=== PATIENT | male | born 1960 | race Caucasian/White ===

== ENCOUNTER → 2017-04-13 | Outpatient (CLI) | payer OTHER | LOC: FIMAGING 12:33 | PROVIDERS: ATTEND Orthopaedic Surgery Orthopaedic Surgery of the Spine | DX: M51.16 Intervertebral disc disorders with radiculopathy, lumbar region (principal); M51.36 Other intervertebral disc degeneration, lumbar region; M47.896 Other spondylosis, lumbar region; M89.38 Hypertrophy of bone, other site ==

== ENCOUNTER 2017-04-18 09:30 | Inpatient (IN) | payer OTHER ==
--- NOTE | 2017-04-17 18:19 | GHP ---
[f rep st] PREOP HISTORY AND PHYSICAL DATE OF ADMISSION: 04/18/2017 HISTORY: This is a pleasant 56-year-old gentleman well known to my practice. He underwent an L4-5 microdiskectomy back in 1994 by another surgeon and he did well. He had been re-herniated in 2004 a nd I performed a revision left L4-L5 microdiskectomy and left L5-S1 foraminotomy. The patient did w ell up until recently. He was golfing about 1 month ago when he felt immediate pain in his lower ba ck and a popping sensation down his left lower extremity. He has noted severe pain in the left leg and weakness. 50% of his pain is referable to the left lower extremity, 50% is referable to low avery k pain. On a 1-10 scale, his pain is a 9. It occurs daily and constantly. The patient denies any loss of bowel or bladder control. SOCIAL HISTORY: Negative for tobacco. Positive for social use of alcohol. FAMILY HISTORY: Diabetes mellitus, cancer, lung disease and heart disease. PAST MEDICAL HISTORY: Hypertension, gastroesophageal reflux disease, and asthma. PAST SURGICAL HISTORY: Right elbow surgery, appendectomy, left total knee arthroplasty, and the afo rementioned previous L4-L5 microdiskectomies. ALLERGIES: To medications include Demerol and morphine, which cause tongue swelling and shortness o f breath. Penicillin, ampicillin, ibuprofen, IVP dye, all of the 'cyclines and 'mycins, per the pat ient. MEDICATIONS: Singulair, omeprazole and losartan. PHYSICAL EXAMINATION: GENERAL: The patient is alert and oriented x3. VITAL SIGNS: He is 5 feet 9 inches tall and weighs 230 pounds. CARDIAC: Regular rate and rhythm, without detectable murmur, r ub or gallop. LUNGS: Clear to auscultation. NEUROLOGIC: Gait is antalgic favoring the left lower extremity. Strength of bilateral lower extremities is 5/5 throughout, with the exception of the le ft EHL. Light touch is diminished in the left medial and lateral leg. Patellar and Achilles reflex es are absent bilaterally. Straight leg raising is positive on the left strongly and negative on th e right. He is tender to palpation in the left sciatic notch. Range of motion of the lumbar spine is significantly limited, especially in forward flexion. RADIOGRAPHIC STUDIES: MRI of the lumbar spine shows severe degenerative disk disease, L4-5 kyphosis and Modic changes of the vertebral endplates. There is a recurrent left L4-L5 disk herniation with lateral recess stenosis and facet arthropathy. L3-L4 shows some minimal degenerative changes. L5- S1 is well preserved. IMPRESSION: 1. Recurrent left L4-L5 disk herniation laterally x3. 2. Status post left L4-L5 microdiskectomy followed by a revision left L4-L5 microdiskectomy and lef t L5-S1 foraminotomy. 3. Severe degenerative disk disease at L4-L5. PLAN: The patient has had a Medrol Dosepak, Valium, anti-inflammatories and pain medication, and is in severe pain. On a 1-10 scale, he rates it a 9. He does have weakness in the left lower extremi ty and this is a third disk herniation at the same level and same side, which justifies a fusion wit h instrumentation. The patient was given all of his options. He has elected to undergo surgery due to significant pain . Potential risks, benefits, and possible complications have been thoroughly discussed, including, but not limited to, dural tear with CSF leak, meningitis, nerve root injury, partial or complete par alysis, infection, need for further surgery, DVT, PE, pneumonia, stroke, heart attack, hemorrhage, b lindness, and . He will be n.p.o. after midnight tonight. I anticipate approximately 2-3 hosp ital nights. /[id number]/MODL
[~2017-04-18 09:30] MED LIST: VANCOMYCIN 1.5 GM in D5W 250 ML IV ONE; VANCOMYCIN PHARMACY TO DOSE MISC ONE
[2017-04-20] MEDS ORDERED: VANCOMYCIN PHARMACY TO DOSE MISC ONE (06:00)
[2017-04-20] MEDS ORDERED: VANCOMYCIN 1.5 GM in D5W 250 ML IV ONE (06:00)
[2017-04-20] MEDS ORDERED: CITRATE DEXTROSE SOLN 500 ML BAG ONE (11:41)
[2017-04-20] MEDS ORDERED: THROMBIN (BOVINE) 20,000 UNIT VIAL TP ONE (11:41)
[2017-04-20] MEDS ORDERED: BACITRACIN 50,000 UNITS/10 ML SYR IRR ONE (11:41)
[2017-04-20] MEDS ORDERED: BUPIVACAINE 0.25% 30 ML SDV ONE (11:41)
[2017-04-20] MEDS ORDERED: fentaNYL 100 MCG/2 ML INJ ONE ×3 (13:12→18:28)
[2017-04-20] MEDS ORDERED: HYDROmorphONE/DILAUDID 2 MG/ML INJ ONE ×2 (13:13→17:50)
[2017-04-20] MEDS ORDERED: PROPOFOL/EMULSION 500 MG/50 ML BOTTLE IV ONE ×4 (13:13→16:39)
[2017-04-20] MEDS ORDERED: MIDAZOLAM 2 MG/2 ML VIAL ONE (13:18)
[2017-04-20] MEDS ORDERED: LR 500 ML IV PRN (14:44)
[2017-04-20] MEDS ORDERED: ALBUTEROL 3 ML DEYVIAL IH PRN (14:44)
[2017-04-20] MEDS ORDERED: METOCLOPRAMIDE 10 MG/2 ML VIAL IVP PRN (14:44)
[2017-04-20] MEDS ORDERED: fentaNYL 100 MCG/2 ML INJ IVP PRN (14:44)
[2017-04-20] MEDS ORDERED: PROMETHAZINE HCL 25 MG/ML INJ IVP PRN ×2 (14:44→18:24)
[2017-04-20] MEDS ORDERED: DEXAMETHASONE 4 MG/ML VIAL IVP PRN (14:44)
[2017-04-20] MEDS ORDERED: NALOXONE HCL 0.4 MG/ML INJ IVP PRN (14:44)
[2017-04-20] MEDS ORDERED: ONDANSETRON 4 MG/2 ML VIAL IVP PRN ×2 (14:44→18:24)
--- NOTE | 2017-04-20 14:49 | PDANEPAE ---
ANE History of Present Illness 56 year old male with back pain with extension into his Left leg. He has undergone two prior surgeries and continues to have pain. Returns for L4-5 fusion. ANE Past Medical History - Cardiovascular History Hx Hypertension: Yes Hx Arrhythmias: No Hx Chest Pain: No Hx Coronary Artery / Peripheral Vascular Disease: No Hx CHF / Valvular Disease: No Hx Palpitations: No - Pulmonary History Hx COPD: No Hx Asthma/Reactive Airway Disease: Yes Hx Recent Upper Respiratory Infection: No Hx Oxygen in Use at Home: No Hx Sleep Apnea: Yes Sleep Apnea Screening Result - Last Documented: Positive - Neurologic History Hx Cerebrovascular Accident: No Hx Seizures: No Hx Dementia: No - Endocrine History Hx Diabetes: No Endocrine History Comment: HYPOGLYCEMIC - Renal History Hx Renal Disorders: Yes Renal History Comment: KIDNEY STONES - Liver History Hx Hepatic Disorders: No - Neurological & Psychiatric Hx Hx Neurological and Psychiatric Disorders: No - Cancer History Hx Cancer: No - Congenital Disorder History Hx Congenital Disorders: No - GI History Hx Gastrointestinal Disorders: Yes Gastrointestinal History Comment: H PYLORI - Other Health History Other Health History: NEG - Chronic Pain History Chronic Pain: No - Surgical History Prior Surgeries: L KNEE SCOPE X4. L TKA. BACK SURG. SINUS SURG. R ELBOW. HERNIA. APPENDECTOMY ANE Review of Systems - Exercise capacity METS (RN): 5 METS ANE Patient History - Allergies Allergies/Adverse Reactions: Penicillins Allergy (Severe, Verified 04/14/17 16:37) Anaphylaxis amoxicillin Allergy (Verified 04/14/17 16:37) Anaphylaxis cefazolin Allergy (Verified 04/14/17 16:37) Anaphylaxis clindamycin Allergy (Verified 04/14/17 16:37) Anaphylaxis gentamicin Allergy (Verified 04/14/17 16:37) Anaphylaxis ibuprofen Allergy (Verified 04/13/17 08:16) Iodinated Contrast- Oral and IV Dye Allergy (Verified 04/14/17 16:37) meperidine [From Demerol] Allergy (Verified 04/13/17 08:16) morphine Allergy (Verified 04/13/17 08:16) - Home Medications Home Medications: Albuterol Sulfate [Proair Hfa] 1 - 2 puffs IH Q4H PRN 04/14/17 [Last Taken 1 Month Ago] Herbals/Supplements -Info Only 1 ea PO DAILY 04/14/17 [Last Taken 3 Days Ago] Losartan Potassium [Cozaar] 100 mg PO DAILY 04/14/17 [Last Taken 04/19/17 06:00] Montelukast Sodium [Singulair 10 mg (*)] 10 mg PO DAILY 04/14/17 [Last Taken 07:00] Omeprazole 40 mg PO DAILY 04/14/17 [Last Taken 04/20/17 07:00] Propranolol HCl [Inderal 20mg (*)] 20 mg PO DAILY 04/14/17 [Last Taken 04/19/17 06:00] - NPO status NPO Since - Liquids (Date): 04/19/17 NPO Since - Liquids (Time): 21:30 NPO Since - Solids (Date): 04/19/17 NPO Since - Solids (Time): 20:30 - Smoking Hx Smoking Status: Never smoked - Family Anes Hx Family Hx Anesthesia Complications: NEG ANE Labs/Vital Signs - Vital Signs Blood Pressure: 130/91 Heart Rate: 67 Respiratory Rate: 16 O2 Sat (%): 93 Height: 175.26 cm Weight: 104.326 kg ANE Physical Exam - Airway Mouth exam: normal dental/mouth exam - Pulmonary Pulmonary: no respiratory distress - Cardiovascular Cardiovascular: regular rate and rhythym - ASA Status ASA Status: II ANE Anesthesia Plan Urgent/Emergent Case: Zhang watson completed preop but documented later for safe timely pt care
[2017-04-20] MEDS ORDERED: MIDAZOLAM 2 MG/2 ML VIAL IVP ONE (14:50)
[2017-04-20] MEDS ORDERED: AVITENE POWDER 1 GM JAR TP ONE (16:40)
[2017-04-20] MEDS: fentaNYL 100 MCG/2 ML INJ ONE ×2 (17:45→17:49)
[2017-04-20] MEDS ORDERED: fentaNYL 100 MCG/2 ML INJ IT ONE (17:45)
[2017-04-20] MEDS ORDERED: diphenhydrAMINE 25 MG CAP PO PRN (18:24)
[2017-04-20] MEDS ORDERED: MAGNESIUM HYDROXIDE 30 ML UDCUP PO PRN (18:24)
[2017-04-20] MEDS ORDERED: LACTULOSE 20 GM/30 ML UDCUP PO PRN (18:24)
[2017-04-20] MEDS ORDERED: POLYETHYLENE GLYCOL 3350 17 GM PKT PO PRN (18:24)
[2017-04-20] MEDS ORDERED: BISACODYL 10 MG SUPP PR PRN (18:24)
--- NOTE | 2017-04-20 18:27 | POSTANESTH ---
Post Anesthetic Evaluation Cardiovascular Status: Normal, Stable Respiratory Status: Normal, Stable Level of Consciousness/Mental Status: Can Participate in Eval, Mildly Sleepy, Arousable Pain Control: Adequate, Prn Tx Ordered Nausea/Vomiting Control: Adequate, Prn Tx Ordered Complications Possibly Related to Anesthesia: None Noted
[2017-04-20] MEDS ORDERED: HYDROmorphONE/DILAUDID 1 MG/ML SYR ONE (18:28)
[2017-04-20] MEDS ORDERED: NS 1,000 ML IV SCH (18:30)
[2017-04-20] MEDS ORDERED: ALBUTEROL INH PREPACK MDI TAKEHOME PRN (18:32)
[2017-04-20] MEDS: HYDROmorphONE/DILAUDID 1 MG/ML SYR IVP PRN ×4 (18:33→22:32)
[2017-04-20] MEDS ORDERED: DIAZEPAM 10 MG/2 ML SYR IVP PRN (18:37)
--- NOTE | 2017-04-20 18:52 | POSTOPPROG ---
Post Op Note Date of Operation: 04/20/17 Surgeon: Gem Price Umbrella Supervisor: Deshawn Duarte SA Anesthesiologist: Van Loyd MD Anesthesia: GET(General Endotracheal) Pre-op Diagnosis: Recurrent L L4-5 HNP and sev DDD Post-op Diagnosis: same Indication: LLE pain Procedure: Rev. L L4-5 discectomy, tlif, post fusion, instrumentation Findings: sev DDD L4-5, epidural fibrosis, L L4-5 HNP Inf/Abcess present in the surg proc area at time of surgery?: No Depth: Deep Incisional (Fascial) EBL: 250 cc Total fluids administered: 2300 cc Complications: None. NO changes in SSEPs, MEPs, EMGs. Drains: Bonilla Walls
[2017-04-20] MEDS ORDERED: DIAZEPAM 10 MG/2 ML SYR ONE (18:57)
[2017-04-20] MEDS ORDERED: ALBUTEROL 200 PUFFS/18 GM MDI IH PRN (19:53)
[2017-04-20] MEDS: METHOCARBAMOL 750 MG TAB PO PRN (20:15)
[2017-04-20] MEDS: SENNOSIDES/DOCUSATE SODIUM TAB PO SCH (20:15)
[2017-04-20] MEDS: oxyCODONE IR 5 MG TAB PO PRN (21:54)
[2017-04-20] MEDS: ACETAMINOPHEN 500 MG TAB PO SCH (21:54)
[2017-04-20] MEDS: DIAZEPAM 5 MG TAB PO PRN (22:33)
[2017-04-21] MEDS: VANCOMYCIN 1.5 GM in D5W 250 ML IV SCH ×2 (01:03→14:22)
[2017-04-21] MEDS: HYDROmorphONE/DILAUDID 1 MG/ML SYR IVP PRN ×4 (01:04→11:58)
[2017-04-21] MEDS: ONDANSETRON DISINTEGRATING 4 MG TAB PO PRN ×2 (01:27→14:31)
[2017-04-21] MEDS: oxyCODONE IR 5 MG TAB PO PRN ×5 (02:41→22:54)
[2017-04-21] MEDS: ACETAMINOPHEN 500 MG TAB PO SCH ×3 (05:28→22:54)
[2017-04-21] MEDS: SENNOSIDES/DOCUSATE SODIUM TAB PO SCH ×2 (08:13→20:37)
[2017-04-21] MEDS: METHOCARBAMOL 750 MG TAB PO PRN ×2 (08:14→18:19)
[2017-04-21] MEDS ORDERED: LOSARTAN POTASSIUM 100 MG PO SCH (09:00)
[2017-04-21] MEDS ORDERED: MONTELUKAST SODIUM 10 MG TAB PO SCH (09:00)
[2017-04-21] MEDS ORDERED: LOSARTAN POTASSIUM 50 MG TAB PO SCH (09:00)
[2017-04-21] MEDS ORDERED: PROPRANOLOL HCL 20 MG TAB PO SCH (09:00)
[2017-04-21] MEDS ORDERED: NON-FORMULARY NEW DRUG (Omeprazole [Omeprazole] 40 MG) PO SCH (09:00)
[2017-04-21] MEDS ORDERED: PANTOPRAZOLE SODIUM 40 MG TAB PO SCH (09:00)
[2017-04-21] MEDS: LOSARTAN POTASSIUM 100 MG PO SCH ×2 (09:45→12:02)
[2017-04-21] MEDS: MONTELUKAST SODIUM 10 MG TAB PO SCH ×2 (09:45→12:03)
[2017-04-21] MEDS: PROPRANOLOL HCL 20 MG TAB PO SCH (12:01)
--- NOTE | 2017-04-21 12:42 | SOAPPROG ---
SOAP Progress Note Assessment/Plan: Assessment: Pt doing o.k. Nausea and recent emesis, now improved. Cont ivfluids, clear liquid diet. Plan: Cont PT and OT (shower in a.m). Will need I and O cath if no void in next hour. 04/21/17 12:39 Subjective: Pt states left leg pain is gone but leg feels weak. Objective: Vital Signs Temp Pulse Resp BP Pulse Ox 37.2 C 88 16 124/78 H 95 04/21/17 07:41 04/21/17 12:01 04/21/17 12:00 04/21/17 12:01 04/21/17 12:00 04/20/17 04/21/17 04/22/17 05:59 05:59 05:59 Intake Total 3006 Output Total 1650 Balance 1356 BLE motor 5/5. Bridget's negative x 2. Drain functioning properly. ICD10 Worksheet Patient Problems: Problems Problem Status Onset Lumbar disc herniation with radiculopathy Acute - ICD10 Problem Qualifiers (1) Lumbar disc herniation with radiculopathy
--- NOTE | 2017-04-21 15:46 | ASMTCASEMG ---
Discharge Plan Comments Coordination Status Comments Notes: PT rec home vs outpat, OT rec home. Anticipate pt will d/c when medically stable. CM available for changes/needs. Date Signed: 04/21/2017 03:45 PM Electronically Signed By:Sonja León
[2017-04-21] MEDS: DIAZEPAM 5 MG TAB PO PRN (22:54)
[2017-04-22] MEDS: oxyCODONE IR 5 MG TAB PO PRN ×4 (03:17→15:27)
[2017-04-22 03:50] VITALS: TEMP 98.4
[2017-04-22] MEDS: ACETAMINOPHEN 500 MG TAB PO SCH ×2 (05:34→14:10)
[2017-04-22] MEDS: MONTELUKAST SODIUM 10 MG TAB PO SCH (07:38)
[2017-04-22] MEDS: SENNOSIDES/DOCUSATE SODIUM TAB PO SCH (07:40)
[2017-04-22] MEDS: PROPRANOLOL HCL 20 MG TAB PO SCH (07:40)
[2017-04-22] MEDS: LOSARTAN POTASSIUM 100 MG PO SCH (07:45)
[2017-04-22 08:01] VITALS: RESP 16
[2017-04-22 11:45] VITALS: BP 114/74; PULSE 97; O2SAT 91
--- NOTE | 2017-04-22 12:51 | SOAPPROG ---
SOAP Progress Note Assessment/Plan: Assessment: Pt doing o.k. Nausea and recent emesis, now improved. Cont ivfluids, clear liquid diet. Plan: Cont PT and OT (shower in a.m). Will need I and O cath if no void in next hour. 04/21/17 12:39 04/22/17 12:48 Pt doing better. Cleared by PT. Will start regular diet. After shower with OT, pt to be discharged to home. Subjective: Pt states his left leg pain is gone. Complains of hiccups; will try baclofen. Objective: Vital Signs Temp Pulse Resp BP Pulse Ox 36.9 C 97 16 114/74 91 L 04/22/17 07:59 04/22/17 11:38 04/22/17 11:38 04/22/17 11:38 04/22/17 11:38 04/21/17 04/22/17 04/23/17 05:59 05:59 05:59 Intake Total 3006 1850 Output Total 1650 1055 Balance 1356 795 Bilateral LE motor 5/5. Bridget's negative x 2. Neuro bilat LE in tact. ICD10 Worksheet Patient Problems: Problems Problem Status Onset Lumbar disc herniation with radiculopathy Acute - ICD10 Problem Qualifiers (1) Lumbar disc herniation with radiculopathy
[2017-04-22] MEDS ORDERED: BACLOFEN 10 MG TAB PO SCH (12:55)
--- NOTE | 2017-04-22 13:52 | GDS ---
[f rep st] DISCHARGE SUMMARY HISTORY: The patient is a pleasant 56-year-old gentleman well known to my practice. In 1994, he un derwent a microdiskectomy by another surgeon and did well. He had a reherniation, and in 2004, I pe rformed a left revision L4-5 microdiskectomy and left L5-S1 foraminotomy. Again, the patient did we ll up until recently. He was golfing, and he experienced immediate left lower extremity pain and lo w back pain. On MRI, he was found to have a recurrent disk herniation in the left at L4-5. He also had severe degenerative disk disease with Modic changes and elected to undergo surgery. He was adm itted on 04/18/2017. Under a general anesthetic, the patient underwent an L4-5 revision diskectomy, transforaminal lumbar interbody fusion, posterior fusion with instrumentation. Intraoperative soma tosensory-evoked potentials, motor-evoked potentials, and EMGs remained normal without permanent nigel nge. A JOSE drain was placed deep to the fascial layer and sewn in. Due to the patient's numerous al lergies, he had fentanyl intrathecally, but we were unable to use morphine as it was a severe allerg y for him. Postoperatively, he did quite well with regard to pain management. This was initially D ilaudid IV followed by OxyContin 20 mg 1 p.o. b.i.d. and Percocet p.r.n. for breakthrough pain, as w ell as Valium for muscle spasms. The drain was removed, per my order for the nursing staff. He rem ained on vancomycin. There are no signs of infection. Patient noted immediate left lower extremity pain relief postoperatively. He was seen in physical t herapy and occupational therapy and became independent in ambulation and activities of daily living. He was kept on a clear diet. He did have some nausea and vomiting and bloating. He also had hiccup s. He was gradually advanced to a regular diet. He will be given baclofen for hiccups p.r.n. Patient showed no signs of infection postoperatively. Neurologically, he remains intact. DISPOSITION: He is being discharged to home in satisfactory condition. DISCHARGE MEDICATIONS: He was given prescriptions for the following: OxyContin 20 mg 1 p.o. b.i.d. , Percocet 1-2 p.o. q.4 hours p.r.n. pain, Valium 5 mg 1 p.o. q.8 hours p.r.n. muscle spasms, baclof en 10 mg 1 p.o. t.i.d. p.r.n. hiccups. DISCHARGE CONDITION: The patient is being discharged in satisfactory condition. FOLLOWUP: He is scheduled for followup in my office. DISCHARGE INSTRUCTIONS: He and his know to call my office immediately if they are concerned ab out any postoperative complications. Otherwise, they can go to the nearest emergency room. Overall , he has done very well. /[id number]/MODL
--- NOTE | 2017-04-22 16:02 | ASDISCHSUM ---
Discharge Information Plan Status:Home with No Needs Medically Cleared to Leave:04/22/2017 Discharge Date:04/22/2017 04:00 PM CM D/C Disposition:Home, Routine, Self-Care ADT D/C Disposition: Projected Discharge Date:04/22/2017 12:00 AM Transportation at D/C: Discharge Delay Reason: Follow-Up Date:04/22/2017 12:00 AM Discharge Slot: Final Diagnosis: Placement Information Patient Contact Information Contact Name:FREDDIE Relationship: Address:[address] City:[place] Alternate Phone: State/Zip Code:[place] [address] Email: Financial Information Financial Class:HMO and PPO Plans Primary Plan Desc:[employer] Primary Plan Number:[id number] Secondary Plan Desc: Secondary Plan Number: Assessment Information [facility] Initial CM Assessment Discharge Plan Comments Coordination Status Comments Notes: PT rec home vs outpat, OT rec home. Anticipate pt will d/c when medically stable. CM available for changes/needs. Date Signed: 04/21/2017 03:45 PM Electronically Signed By:Sonja León Intervention Information
--- NOTE | 2017-04-23 09:34 | GOP ---
[f rep st] OPERATIVE REPORT DATE OF OPERATION: 04/20/2017 SURGEON: Gem Muñoz MD SONG LYRICIST: Panfilo Duarte SA. ANESTHESIA: General endotracheal intubation. ANESTHESIOLOGIST: Joy Loyd MD. PREOPERATIVE DIAGNOSIS: 1. Recurrent left L4-5 lateral disc herniation. 2. Status post 2 prior left L4-5 micro diskectomies. 3. Severe degenerative disc disease at L4-5 with Modic changes and kyphosis. 4. Left lower extremity L5 radiculopathy. POSTOPERATIVE DIAGNOSIS: 1. Recurrent left L4-5 lateral disc herniation. 2. Status post 2 prior left L4-5 micro diskectomies. 3. Severe degenerative disc disease at L4-5 with Modic changes and kyphosis. 4. Left lower extremity L5 radiculopathy. PROCEDURE PERFORMED: Revision left L4-5 diskectomy, laminectomy, transforaminal lumbar interbody fu vj and posterior fusion with instrumentation L4-5, injection of 25 mcg of intrathecal fentanyl for postoperative pain control. FINDINGS: Included moderate to severe degenerative disk disease L4-5 with facet arthropathy, recurr ent left L4-5 foraminal disc herniation. There were no signs of infection. ESTIMATED BLOOD LOSS: 250 cc. INDICATIONS: The patient is a pleasant, 56-year-old gentleman, who has undergone 2 prior left L4-5 micro diskectomies by myself. He has now presented with a 3rd reherniation on the left at L4-5 with severe left lower extremity pain and low back pain. Patient has elected to undergo further surgery and a fusion was recommended given this was his 3rd herniation at the same disc on the same side. No guarantees were given in regard to surgical outcome. Potential risks, benefits, and possible com plications were thoroughly discussed including, but not limited to, dural tear with CSF leak, mening itis, nerve root injury, partial or complete paralysis, lack of improvement of symptomatology, infec tion, need for further surgery, DVT, PE, pneumonia, stroke, heart attack, hemorrhage, sepsis, blindn ess and . DESCRIPTION OF PROCEDURE: After obtaining both written and verbal consent from the patient, he was brought to the operating room where he underwent a general endotracheal intubation. The patient rec eived IV vancomycin. Carey catheter was placed. After intubation, patient was rolled to the prone position on the Bonilla table. All 4 extremities were padded well. The face and eyes were padded p er the anesthesiologist. A lateral fluoroscopic x-ray was obtained for localization. The lumbar sp ine was prepped and draped in the normal sterile fashion. A timeout was performed with the entire o perating room team, confirming patient's name, date of , planned surgical procedure including l evels, antibiotics given, allergies to medication. A 10 blade knife was used to create a midline longitudinal dorsal incision from L4-S1. The incision was brought down through the previous scar and through the overlying dorsal fascia. Paraspinal mus cles were stripped in a subperiosteal fashion. A lateral fluoroscopic x-ray confirmed localization of the correct levels. Self-retaining retractors were placed. The transverse prostheses of L4 and L5 were stripped of their periosteal attachments. The reference frame for the Stealth O-arm guidanc e was set up and attached to the L3 spinous process. An AP and a lateral fluoroscopic view were obt ained followed by a [address] scan spin. Under O-arm guidance, in addition to basic anatomic landmarks, the left L4 and L5 pedicle screw sites were identified, 1st using a gear shift probe att ached to the O-arm guidance, followed by a ball-tip probe to palpate the entire depth of the propose d screw sites which showed bone circumferentially around the 2 of them, as well as confirmation visu ally. Decortication of the transverse processes of the left L4 and L5 were performed with a rat-too thed rongeur. Crushed cancellous bone graft mixed with demineralized bone matrix was packed in the posterolateral position on the left at L4-5. Then pedicle screws were placed in the following fashi on. On the left at L4, a 6.5 x 45 mm titanium pedicle screw by [employer], which is called a m kaylaury classic screw was placed. It stimulated to greater than 20 milliamps using intraoperative ne ural monitoring. Then, the left L5 screw was 6.5 x 40 mm, and this also had excellent purchase with good stimulation to greater than 20 mA. Then, the same was performed on the right in a similar fas hion, using basic anatomic landmarks of the lateral border of the facet joint and the midline of the transverse process intersection. Furthermore it was done under O-arm guidance. On the right using a ball-tip probe, both of the L4 and L5 proposed sites were palpated and had good bone circumferent ially around the entire depth of the proposed site. Again after decortication of the transverse pro stheses and laying down of crushed cancellous bone graft and demineralized bone matrix, a 6.5 x 45 m m screw was placed at L4 and the same at L5 and both stimulated to greater than 20 milliamps with go od bone purchase. Then 2 rods were placed, each of them measuring 55 mm in length within the screw heads and tightened down with locking caps. A torque and counter torque wrench were used to perform the final tightening. Also a 3 dimensional O-arm spin was performed to evaluate placement of the p edicle screws and these were in good position within the pedicles at L4 and L5 bilaterally. Then un estela loupe magnification, a laminectomy was performed. Bilateral facetectomies were performed using a 5 mm round bur and a 2 and 3 mm Kerrison. There was a moderate amount of epidural fibrosis from h is previous 2 left L4-5 micro diskectomies that was removed very carefully and gradually. The left L4 exiting nerve root was identified. Due to the abundant scar tissue, a Love nerve root retractor was used to protect the dura, which was partially visible. A 15-blade knife was used to create an a nnulotomy at the L4-5 disk space and a moderate-sized disc fragment was removed from the neural fora men on the left at L4-5. This was likely the cause of his left leg pain. Furthermore, the rest of the disk was removed via curved curette decorticating and pituitary rongeur. Then using antonietta, starting at a 6 mm size shaver going up to a 10 mm shaver, the disk space was opened up. A trial utilized and the most appropriate fit was a 10 mm graft. therefore, 10 x 27 x 10 mm lordosed [employer] porous-coated PEEK cage was prepared in the usual fashion using patient's bone saved autogenous bone graft, in addition to demineralized bone matrix. The 10 mm PEEK cage was then tampe d into position on the left at L4-5, while protecting the L4 and L5 nerve roots and the midline thec al sac. There were no changes in spinal cord monitoring at that time, which included somatosensory- evoked potentials, motor-evoked potentials and the EMGs. Then, the right side was addressed as well to place another PEEK cage. A complete facetectomy was performed, and then the midline thecal sac was identified and the exiting right L4 and L5 nerve roots were completely decompressed via a forami notomy and the facetectomy. While protecting the neural structures, antonietta were again utilized and due to a small amount of scoliosis, a 9 mm trial had the best and therefore a 10 x 27 x 9 mm lordos ed PEEK cage was the most appropriate 1, and the [employer] porus-coated PEEK was packed using au togenous bone graft and demineralized bone matrix. It was tamped into position on the right and rec essed about 2 mm. There were no changes in the spinal cord monitoring. Then, an AP and a lateral f luoroscopic view showed good position of internal fixation, in addition to the 2 PEEK cages at L4-L5 . At this time, a size medium bone morphogenic protein was prepared per the clinical interviewer's recommen dation and packed in a posterolateral position at L4-L5 while protecting the dura with a dry Gel-Foa m. Also at this time, 25 mcg of intrathecal fentanyl was placed via a 30-gauge needle in the subara chnoid space for postoperative pain control. I was unable to give the patient any intrathecal Duram orph due to his morphine allergy, which is quite severe. A 10 flat JOSE drain was then placed deep to the fascial layer and sewn in with a 2-0 nylon suture. Then, at this time, hemostasis was obtained . A #1 Vicryl was used to close the deep fascial layer followed by an 0 Vicryl and 2-0 undyed Vicry l and skin alexandr. Sterile dressing was applied. Sponge and needle count were correct. Dressing was applied. Lumbar brace was placed. Patient was rolled to the supine position. He was extubated in the operating room, and brought to the recovery room in satisfactory condition. FLUIDS GIVEN: 2300 cc. COMPLICATIONS: None. There were no changes in spinal cord monitoring including somatosensory-evoke d potentials, motor-evoked potentials, and EMGs. POSTOPERATIVE PLAN: Close neurologic observation, close airway observation, physical therapy, occup ational therapy and pain control. /[id number]/MODL
== END 2017-04-22 16:00 | disposition home or self-care (01) | DRG 460 ==
LOC: F3N 04-20 10:12
PROVIDERS: ADMIT Orthopaedic Surgery Orthopaedic Surgery of the Spine; ATTEND Orthopaedic Surgery Orthopaedic Surgery of the Spine
DX: M51.16 Intervertebral disc disorders with radiculopathy, lumbar region (principal); M48.06 Spinal stenosis, lumbar region; M40.209 Unspecified kyphosis, site unspecified; Z96.652 Presence of left artificial knee joint; I10 Essential (primary) hypertension; K21.9 Gastro-esophageal reflux disease without esophagitis
CPT/HCPCS: 97116-GP; 97161-GP; 97165-GO; 97530-GP; 97535-GO; C1713; C1762; J1170; J2250; J2405; J2704; J3010; J3370; J7060

== ENCOUNTER 2017-04-23 09:27 | Inpatient (IN) | payer OTHER ==
--- NOTE | 2017-04-23 09:38 | EDPHY ---
H & P Time Seen by Provider: 04/23/17 09:30 HPI/ROS: CHIEF COMPLAINT: Chest tightness after surgery HISTORY OF PRESENT ILLNESS: Patient had lumbar spine fusion and presents from [facility] with a chief complaint of chest tightness and feeling poorly and shortness of breath. Per EMS and [facility] ED physician, patient was initially brought to ED today for altered mental status, possibly from pain medication. He was noted to be hypoxic and altered, improving prior to transfer. Patient was seen at [facility] was transferred to ma per EMS having received total of 1600 mL is of IV normal saline and intravenous vancomycin. His lowest blood pressure and transfer was 96 systolic. Lowest oxygen saturation was 93% on 4 L nasal cannula. Labs drawn at [facility] include WBC 18.9, hematocrit 42, troponin 0.5, venous lactate 4.2. LFTs in the 7000 range. On arrival the patient just says he really feels terrible. Chest tightness and shortness of breath is moderate. Much worse with any exertion. Not associated with cough or fever. Does not radiate. Has been present since his discharge. Some dizziness when attempting to stand this morning. REVIEW OF SYSTEMS: Eye: no change in vision ENT: no sore throat Cardiac: Chest tightness since he was discharged from the hospital Pulmonary: Short of breath but no coughing or hemoptysis Abdomen: no vomiting, diarrhea, abdominal pain Musculoskeletal: Postoperative back pain stable Skin: no rash Neuro: no headache, the tingling and numbness in his feet which were present prior to surgery are now resolved. Constitutional: no fever : no urinary symptoms A comprehensive 10 point review of systems is otherwise negative aside from elements mentioned in the history of present illness. PAST MEDICAL HISTORY: Includes asthma and hypertension, previous spine surgery , sleep apnea. Social history: Just transferred from [facility]. Lives in [place]. Surgeon is Dr. Gem Price. General Appearance: Alert and conversant, cooperative. Eyes: No scleral icterus. ENT, Mouth: Normal mucous membranes. Respiratory: Decreased breath sounds bilaterally but no crackles rhonchi or wheezing. Cardiovascular: Regular rate and rhythm. Gastrointestinal: Abdomen is soft and non tender. Neurological: Alert and oriented x3. Normally conversant. Moves all 4 extremities, normal sensation to light touch in all 4 extremities. Generally weak. Skin: Patient was rolled on his side and his dressing over his spine incision is clean dry and intact except for very slight amount of yellowish drainage inferiorly. Musculoskeletal: Trace peripheral edema but no calf tenderness. Psychiatric: Not agitated. Emergency Department course/MDM: Patient received IV vancomycin and blood cultures at [facility]. [place] 956am for Chelle. 1013: Discussed with Dee, she requests no anticoagulation unless venous thromboembolism definitively diagnosed given his recent spine surgery. Discussed with the patient he says has been taking a lot of pain medication with Tylenol. Liver function tests are elevated and Mucomyst started empirically. IV normal saline hydration continued with additional 1 L normal saline in the emergency department. CT angiography chest considered as there is some clinical suspicion for pulmonary embolism but we are unable with his current creatinine. Ventilation perfusion scan ordered. Bilateral Doppler ultrasound of the legs is negative for DVT. Troponin noted is elevated. EKG does not show evidence of ST elevation [place]. Discussed with [facility] cardiology 1330. Admission to ICU for monitoring and further evaluation, appears to have acute liver failure in addition to his other problems. Smoking Status: Never smoked Constitutional: Initial Vital Signs Temperature (C) 36.7 C 04/23/17 09:29 Heart Rate 103 H 04/23/17 09:29 Respiratory Rate 20 04/23/17 09:29 Blood Pressure 103/75 04/23/17 09:29 O2 Sat (%) 86 L 04/23/17 09:29 O2 Delivery Mode Nasal Cannula O2 (L/minute) 2 Allergies/Adverse Reactions: morphine Allergy (Severe, Verified 04/20/17 18:50) Tongue swelling Penicillins Allergy (Severe, Verified 04/14/17 16:37) Anaphylaxis amoxicillin Allergy (Verified 04/14/17 16:37) Anaphylaxis cefazolin Allergy (Verified 04/14/17 16:37) Anaphylaxis clindamycin Allergy (Verified 04/14/17 16:37) Anaphylaxis gentamicin Allergy (Verified 04/14/17 16:37) Anaphylaxis ibuprofen Allergy (Verified 04/13/17 08:16) Iodinated Contrast- Oral and IV Dye Allergy (Verified 04/14/17 16:37) meperidine [From Demerol] Allergy (Verified 04/13/17 08:16) Home Medications: Medication Instructions Recorded Albuterol Sulfate [Proair Hfa] 1 - 2 puffs IH Q4H PRN 04/14/17 Losartan Potassium [Cozaar] 100 mg PO DAILY 04/14/17 Montelukast Sodium [Singulair 10 10 mg PO DAILY 04/14/17 mg (*)] Propranolol HCl [Inderal 20mg (*)] 20 mg PO DAILY 04/14/17 oxyCODONE CR [Oxycontin] 20 mg PO Q12 #30 tab 04/22/17 Baclofen [Baclofen 10 mg (*)] 10 mg PO TID 04/23/17 Ciprofloxacin [Cipro] 500 mg PO BID 04/23/17 Diazepam [Valium 5 MG (*)] 5 mg PO Q8HRS PRN 04/23/17 Omeprazole 20 mg PO DAILY 04/23/17 oxyCODONE/APAP 5/325 [Percocet 1 - 2 tab PO Q6H PRN 04/23/17 5/325 (*)] Medical Decision Making - Diagnostics EKG Interpretation: 12-lead EKG interpreted by me; official reading is in trace master. My interpretation is sinus tachycardia rate 100, nonspecific T-wave flattening. Imaging Results: Imaging Impressions Extremity Venous Study 04/23/17 09:58 Impression: No evidence of deep vein thrombosis in the right or left lower extremity. Results communicated to Dr. Vamsi Hidalgo at 11:00 AM Lung Scan Nuclear Medicine 04/23/17 09:58 Impression: Normal exam. No pulmonary embolus. Results communicated to Dr. Corbett at 3:29 PM. Differential Diagnosis: Differential diagnosis considered for chest pain including but not limited to myocardial ischemia, aortic dissection, pericarditis, pulmonary embolus, chest wall pain, pleural inflammation and pulmonary infectious causes. Critical Care Time: Critical care time spent by me, Dr. Hidalgo, exclusively with the care of this patient was 45 minutes, exclusive of PA or CENTRAL SUPPLY NURSE time and exclusive of separate procedures. The organ system at risk was multiple including hepatic and I ordered supplemental oxygen, multiple diagnostic studies, discussion with consultants, initiation of Mucomyst therapy; to stabilize the patient and attempt to prevent worsening of the patient's condition. - Data Points Laboratory Results: Laboratory Results 04/23/17 09:38 04/23/17 09:38 04/23/17 04/23/17 04/23/17 09:40 09:40 09:38 WBC RBC Hgb POC Hgb Hct POC Hct MCV MCH MCHC RDW Plt Count MPV Neut % (Auto) Lymph % (Auto) [place] % (Auto) Eos % (Auto) Baso % (Auto) Nucleat RBC Rel Count Absolute Neuts (auto) Absolute Lymphs (auto) Absolute Monos (auto) Absolute Eos (auto) Absolute Basos (auto) Absolute Nucleated RBC Immature Gran % Immature Gran # PT Cancelled INR Cancelled D-Dimer POC Sodium Sodium POC Potassium Potassium POC Chloride Chloride Carbon Dioxide Anion Gap POC BUN BUN Creatinine POC Creatinine Estimated GFR Glucose POC Glucose Calcium Total Bilirubin 2.0 mg/dL H mg/dL (0.1-1.4) Conjugated Bilirubin 0.9 mg/dL H mg/dL (0.0-0.5) Unconjugated Bilirubin 1.1 mg/dL mg/dL (0.0-1.1) AST > 7500 IU/L H IU/L (17-59) ALT 9592 IU/L H IU/L (21-72) Alkaline Phosphatase 36 IU/L L IU/L (38-126) Troponin I Total Protein 5.3 g/dL L g/dL (6.3-8.2) Albumin 3.0 g/dL L g/dL (3.5-5.0) Acetaminophen Hepatitis A IgM Ab Pending Hep Bs Antigen Pending Hep B Core IgM Ab Pending Hepatitis C Antibody Pending 04/23/17 04/23/17 04/23/17 09:38 09:38 09:38 WBC RBC Hgb POC Hgb Hct POC Hct MCV MCH MCHC RDW Plt Count MPV Neut % (Auto) Lymph % (Auto) [place] % (Auto) Eos % (Auto) Baso % (Auto) Nucleat RBC Rel Count Absolute Neuts (auto) Absolute Lymphs (auto) Absolute Monos (auto) Absolute Eos (auto) Absolute Basos (auto) Absolute Nucleated RBC Immature Gran % Immature Gran # PT 23.6 SEC H SEC (12.0-15.0) INR 2.09 H (0.83-1.16) D-Dimer 1.45 ug/mLFEU H ug/mLFEU (0.00-0.50) POC Sodium Sodium 135 mEq/L mEq/L (134-144) POC Potassium Potassium 5.2 mEq/L mEq/L (3.5-5.2) POC Chloride Chloride 101 mEq/L mEq/L (97-110) Carbon Dioxide 21 mEq/l L mEq/l (22-31) Anion Gap 13 mEq/L mEq/L (8-16) POC BUN BUN 35 mg/dL H mg/dL (7-23) Creatinine 2.0 mg/dL H mg/dL (0.7-1.3) POC Creatinine Estimated GFR 35 Glucose 143 mg/dL H mg/dL (70-100) POC Glucose Calcium 8.4 mg/dL L mg/dL (8.5-10.4) Total Bilirubin Conjugated Bilirubin Unconjugated Bilirubin AST ALT Alkaline Phosphatase Troponin I 0.658 ng/mL H ng/mL (0.000-0.034) Total Protein Albumin Acetaminophen < 10 mcg/mL L mcg/mL (10-30) Hepatitis A IgM Ab Hep Bs Antigen Hep B Core IgM Ab Hepatitis C Antibody 04/23/17 04/23/17 09:38 09:36 WBC 14.61 10^3/uL H 10^3/uL (3.80-9.50) RBC 4.05 10^6/uL L 10^6/uL (4.40-6.38) Hgb 12.6 g/dL L g/dL (13.7-17.5) POC Hgb 12.2 gm/dL L gm/dL (13.7-17.5) Hct 36.6 % L % (40.0-51.0) POC Hct 36 % L % (40-51) MCV 90.4 fL fL (81.5-99.8) MCH 31.1 pg pg (27.9-34.1) MCHC 34.4 g/dL g/dL (32.4-36.7) RDW 13.4 % % (11.5-15.2) Plt Count 87 10^3/uL L 10^3/uL (150-400) MPV 9.2 fL fL (8.7-11.7) Neut % (Auto) 88.4 % H % (39.3-74.2) Lymph % (Auto) 4.6 % L % (15.0-45.0) [place] % (Auto) 5.7 % % (4.5-13.0) Eos % (Auto) 0.0 % L % (0.6-7.6) Baso % (Auto) 0.1 % L % (0.3-1.7) Nucleat RBC Rel Count 0.0 % % (0.0-0.2) Absolute Neuts (auto) 12.90 10^3/uL H 10^3/uL (1.70-6.50) Absolute Lymphs (auto) 0.67 10^3/uL L 10^3/uL (1.00-3.00) Absolute Monos (auto) 0.84 10^3/uL H 10^3/uL (0.30-0.80) Absolute Eos (auto) 0.00 10^3/uL L 10^3/uL (0.03-0.40) Absolute Basos (auto) 0.02 10^3/uL 10^3/uL (0.02-0.10) Absolute Nucleated RBC 0.00 10^3/uL 10^3/uL (0-0.01) Immature Gran % 1.2 % H % (0.0-1.1) Immature Gran # 0.18 10^3/uL H 10^3/uL (0.00-0.10) PT INR D-Dimer POC Sodium 136 mEq/L mEq/L (134-144) Sodium POC Potassium 5.0 mEq/L mEq/L (3.3-5.0) Potassium POC Chloride 101 mEq/L mEq/L (97-110) Chloride Carbon Dioxide Anion Gap POC BUN 36 mg/dL H mg/dL (7-23) BUN Creatinine POC Creatinine 2.3 mg/dL H mg/dL (0.7-1.3) Estimated GFR Glucose POC Glucose 154 mg/dL H mg/dL (70-100) Calcium Total Bilirubin Conjugated Bilirubin Unconjugated Bilirubin AST ALT Alkaline Phosphatase Troponin I Total Protein Albumin Acetaminophen Hepatitis A IgM Ab Hep Bs Antigen Hep B Core IgM Ab Hepatitis C Antibody Medications Given: Discontinued Medications Sodium Chloride (Ns) 1,000 mls @ 0 mls/hr IV EDNOW ONE; Wide Open PRN Reason: Protocol Stop: 04/23/17 09:59 Last Admin: 04/23/17 10:07 Dose: 1,000 mls Acetylcysteine (Acetylcysteine Iv Protocol (Tylenol Overdose)) 0 mls @ 0 mls/ hr MISC EDNOW ONE PRN Reason: As Directed Stop: 04/23/17 10:15 Last Admin: 04/23/17 13:06 Dose: Not Given Acetylcysteine 15,600 mg/ (Dextrose) 278 mls @ 278 mls/hr IV ONCE ONE Stop: 04/23/17 11:29 Last Admin: 04/23/17 10:55 Dose: 278 mls Acetylcysteine 5,200 mg/ (Dextrose) 526 mls @ 131.5 mls/hr IV ONCE ONE Stop: 04/23/17 15:29 Last Admin: 04/23/17 12:54 Dose: 526 mls Point of Care Test Results: 04/23/17 09:36 POC Sodium 136 POC Potassium 5.0 POC Chloride 101 POC BUN 36 H POC Creatinine 2.3 H POC Glucose 154 H Departure - Departure Disposition: [facility] Inpatient Acute Clinical Impression: Elevated troponin, Hepatitis Chest pain Qualifiers: Chest pain type: unspecified Qualified Code(s): R07.9 - Chest pain, unspecified Acute respiratory failure Qualifiers: Respiratory failure complication: hypoxia Qualified Code(s): J96.01 - Acute respiratory failure with hypoxia Liver failure, acute Qualifiers: Hepatic coma status: without hepatic coma Qualified Code(s): K72.00 - Acute and subacute hepatic failure without coma Condition: Critical
--- NOTE | 2017-04-23 09:52 | CPEKG ---
Heart Rate: 101 RR Interval: 594 P-R Interval: 172 QRSD Interval: 86 QT Interval: 324 QTC Interval: 420 P Abiquiu: 48 QRS Abiquiu: 54 T Wave Abiquiu: -22 EKG Severity - ABNORMAL ECG - EKG Impression: SINUS TACHYCARDIA EKG Impression: NONSPECIFIC T ABNORMALITIES, INFERIOR LEADS Electronically Signed By: Vamsi Hidalgo 23-Apr-2017 12:38:48
[2017-04-23] MEDS ORDERED: NS 1,000 ML IV ONE (09:58)
[2017-04-23 10:02] LABS: % IMMATURE GRANULYOCYTES 1.2 % (0.0-1.1); ABSOLUTE IMMATURE GRANULOCYTES 0.18 10^3/uL (0.00-0.10); ADD DIFF? NO; ADD MORPH? NO; ADD SCAN? NO; ATYPICAL LYMPHOCYTE FLAG 0 (0-99); FRAGMENT RBC FLAG 0 (0-99); HEMATOCRIT 36.6 % (40.0-51.0); HEMOGLOBIN 12.6 g/dL (13.7-17.5); LEFT SHIFT FLG 20 (0-99); LIPEMIA HEMOLYSIS FLAG 90 (0-99); MEAN CELL HEMOGLOBIN 31.1 pg (27.9-34.1); MEAN CELL HEMOGLOBIN CONCENTR. 34.4 g/dL (32.4-36.7); MEAN CELL VOLUME 90.4 fL (81.5-99.8); MEAN PLATELET VOLUME 9.2 fL (8.7-11.7); PLATELET CLUMPS FLAG 10 (0-99); PLATELET COUNT 87 10^3/uL (150-400); RED BLOOD CELL COUNT 4.05 10^6/uL (4.40-6.38); RED CELL DISTRIBUTION WIDTH 13.4 % (11.5-15.2)
[2017-04-23 10:10] LABS: ANION GAP 13 mEq/L (8-16); CALCIUM 8.4 mg/dL (8.5-10.4); CARBON DIOXIDE 21 mEq/l (22-31); CHLORIDE 101 mEq/L (97-110); GLOMERULAR FILTRATION RATE 35; GLUCOSE 143 mg/dL (70-100); POTASSIUM 5.2 mEq/L (3.5-5.2); SODIUM 135 mEq/L (134-144)
[2017-04-23] MEDS ORDERED: ACETYLCYSTEINE IV PROTOCOL 1 EACH MISC ONE (10:14)
[2017-04-23 10:22] LABS: TROPONIN I 0.658 ng/mL (0.000-0.034)
[2017-04-23 10:25] LABS: ALKALINE PHOSPHATASE 36 IU/L (38-126); BILIRUBIN-CONJUGATED 0.9 mg/dL (0.0-0.5); BILIRUBIN-UNCONJUGATED 1.1 mg/dL (0.0-1.1); TOTAL PROTEIN 5.3 g/dL (6.3-8.2)
[2017-04-23 10:28] LABS: INR 2.09 (0.83-1.16); PROTIME(PATIENT) 23.6 SEC (12.0-15.0)
[2017-04-23] MEDS ORDERED: ACETYLCYSTEINE IV ONE ×3 (10:30→15:30)
[2017-04-23] MEDS ORDERED: D5W IV ONE ×3 (10:30→15:30)
[2017-04-23 10:59] LABS: ALANINE AMINOTRANSFERASE 9592 IU/L (21-72)
[2017-04-23 11:09] LABS: ASPARTATE AMINOTRANSFERASE > 7500 IU/L (17-59)
[2017-04-23] MEDS ORDERED: ALBUTEROL INH PREPACK MDI TAKEHOME PRN (11:56)
--- NOTE | 2017-04-23 11:59 | ASMTCASEMG ---
Living Arrangements What is your living Answers: With Spouse arrangement? Who do you live with? Type Of Residence What kind of residence do Answers: House you live in? Discharge Plan Comments Coordination Status Comments Notes: Patient admitted for elevated troponin, elevated LFTs, chest pain. Patient recently had lumbar fusion with Dr. Gem Price and was discharged from [facility] yesterday. Patient was discharged home with with no needs and to follow up outpatient for PT/OT. Pt lives in [place]. Anticipate patient will discharge home with family once medically stable. CM to follow for possible discharge needs. Date Signed: 04/23/2017 11:58 AM Electronically Signed By:Mackenzie Dahl
[2017-04-23] MEDS ORDERED: NS 1,000 ML IV SCH (12:00)
[2017-04-23] MEDS ORDERED: ALBUTEROL 200 PUFFS/18 GM MDI IH PRN (12:03)
[2017-04-23] MEDS ORDERED: HYDROmorphONE/DILAUDID 1 MG/ML INJ IVP PRN (12:13)
[2017-04-23 12:40] LABS: INR 2.48 (0.83-1.16); PROTIME(PATIENT) 27.1 SEC (12.0-15.0)
[2017-04-23 12:41] LABS: APTT 36.2 SEC (23.0-38.0); FIBRINOGEN 460 mg/dL (214-456)
[2017-04-23 12:44] LABS: TROPONIN I 0.775 ng/mL (0.000-0.034)
[2017-04-23 12:45] LABS: PLATELET COUNT 86 10^3/uL (150-400)
[2017-04-23 13:14] LABS: LACTATE DEHYDROGENASE > 10000 IU/L (313-618)
--- NOTE | 2017-04-23 13:44 | GCON ---
[f rep st] CONSULTATION INPATIENT CONSULTATION NOTE REFERRING PHYSICIAN: Diana Corbett MD REASON FOR CONSULTATION: Abnormal liver tests. CHIEF COMPLAINT: Weakness. HISTORY OF PRESENT ILLNESS: Briefly, the patient is a 56-year-old male, who had been previously healthy, who underwent spinal surgery on the prior to admission. He reports his surgery was uneventful. He was discharged home after approximately 48 hours of convalescence in the hospital. Over his first outpatient day, he began feeling weak, dizzy, fatigued, and had a near syncopal episode. Given this, he presented to the emergency room for evaluation. He was found to have slight hypotension, as well as a slight oxygen requirement. Laboratory testing was significant for an elevated white count and very elevated liver function tests. In this setting, he has been admitted to the hospital for the evaluation of acute hepatitis. He reports no alcohol use. He takes rare Tylenol. He has no personal or family history of chronic liver disease, or heavy alcohol use. During his recent hsoptial stay he was given cipro and vancomycin - two medications he does not recall using prior. PAST MEDICAL HISTORY: Includes asthma and hypertension, as well as prior spine surgeries, and sleep apnea. SOCIAL HISTORY: He does not drink alcohol. FAMILY HISTORY: There is no family history of liver disease to his knowledge. ALLERGIES: He reports multiple allergies, including morphine, penicillin, amoxicillin, cefazolin, clindamycin, gentamicin, ibuprofen, iodinated contrast, and Demerol. MEDICATIONS: His home medicines were albuterol, losartan, Singulair, Inderal, Ventolin, baclofen, Valium, OxyContin, and omeprazole. REVIEW OF SYSTEMS: A complete 10-system review was undertaken with the patient and is negative, except for the pertinent positives and negatives detailed in the history of present illness. PHYSICAL EXAM: GENERAL: This is an obese, well-developed male, in no apparent distress. HEENT: His pupils are equal, round, reactive to light and accommodation. His sclerae are not icteric. His oropharynx is clear. NECK: Supple without lymphadenopathy. HEART: Regular without murmur. ABDOMEN: Soft , nontender, with normoactive bowel sounds. EXTREMITIES: Free of cyanosis, clubbing, and edema. NEURO: Grossly nonfocal, of note, he has no clear evidence of encephalopathy. SKIN: Warm and dry, without jaundice. MUSCULOSKELETAL: Reveals no joint swelling. PSYCH: Reveals normal mood and affect. LABORATORY TESTING: Shows a white count of 14.61, hemoglobin of 12.6, hematocrit of 36.6, platelet count of 87. INR of 2.48. Lactic acid of 2.7. Sodium of 135, potassium of 5.2, chloride of 101, bicarb of 21, BUN of 35, creatinine of 2.0. Total bilirubin of 2.9, conjugated of 0.9, unconjugated of 1.1. AST of greater than 7500, ALT of 9592, alkaline phosphatase of 36. Lactate dehydrogenase pending. Albumin of 3.0. Acetaminophen level less than 10. IMPRESSION AND RECOMMENDATIONS: The patient is presenting to the hospital with acute hepatitis and acute liver failure, as evidenced by his elevated transaminitis and his elevated INR. Fortunately, his mental status remains intact. The differential diagnosis for his acute hepatitis is broad. It includes toxic exposure (cpro? vanco?), acute viral hepatitis, perhaps ischemic hepatitis. Less likely, but also possible, could include flares of a previous undiagnosed liver disease, such as autoimmune, hepatitis, etc. Poor flow around the liver, including hepatic artery thrombosis or portal vein thrombosis are also possible. Given his multiple drug intolerances and allergies, his recent hospitalized setting, I am concerned about the possibility of an idiosyncratic drug reaction as well. At this time, we will engage in a comprehensive laboratory and imaging evaluation to resolve the differential diagnosis of acute liver failure and hepatitis. Given his elevated INR, elevated creatinine, and relatively hyper acute presentation, he is at for fulminant failure. We will have a low threshold to consider a referral to a regional center for liver transplantation. /[id number]/MODL MTDD
--- NOTE | 2017-04-23 14:50 | GCON ---
[f rep st] CONSULTATION SURFACE LAY OUT TECHNICIAN CONSULTATION REASON FOR ADMISSION: Liver failure and dyspnea. HISTORY OF PRESENT ILLNESS: The patient is a very pleasant 56-year-old white male with a past medic al history of hypertension and asthma, early last week he underwent extensive back surgery, was subs equently discharged home after approximately 2 days. On the day following his discharge, he began f eeling weak and dizzy, and nearly had loss of consciousness. He was brought to the emergency room. At that time, he was found to be hypotensive and hypoxic, and he was subsequently admitted to the ntensive care unit. In discussion with the patient. He states he feels somewhat better on suppleme ntal oxygen. His dizziness has improved as well. PAST MEDICAL HISTORY: Significant for hypertension and asthma, sleep apnea. PAST SURGICAL HISTORY: Had multiple spine surgeries. ALLERGIES: Morphine, penicillin, amoxicillin, cefazolin, clindamycin, gentamicin, ibuprofen, and De merol. SOCIAL HISTORY: No history of tobacco use. No history of alcohol use. He is , has excellen [employer] family support. MEDICATIONS: At home include Ventolin, baclofen, Valium, Singulair, Inderal, albuterol, losartan, O xyContin, and omeprazole. PHYSICAL EXAM: VITAL SIGNS: Blood pressure is 123/85, pulse 103, respirations 16, temperature 37.0 , oxygen saturation 92% on 2 L. GENERAL: He is mildly overweight, but very pleasant, 56-year-old w nubia male, who is resting comfortably, in no acute distress. HEENT: Eyes PERRLA, EOMI. Throat juan ws no erythema or tonsillar hypertrophy. NECK: Supple. There is no cervical adenopathy. HEART: Regular rate and rhythm without murmurs, rubs, gallops. LUNGS: Clear to auscultation. No wheeze o r rhonchi. He is currently wearing a back brace. EXTREMITIES: Show no clubbing, cyanosis, or efrem a. LABORATORIES: White count 14.6, hemoglobin 12, hematocrit 36, platelet count is 86. INR 2.48. Fibrinogen elevated at 460. D-dimer is elevated at 1.72. VBG lactate is elevated at 2.7. Sodium i s 136, potassium 5.0, chloride 101, CO2 is 21, BUN is 35, creatinine is 2, glucose is 143. Bilirubi n is high at 2.0. AST is elevated at greater than 7500, AST is 9592. LDH is greater than 10,000. Troponins are mildly elevated. Hepatitis screen is pending. A chest x-ray shows a tiny left basilar effusion, otherwise clear. Abdominal ultrasound shows marilee l liver with patent portal and hepatic veins. Duplex ultrasound of the lower extremity was negative for clot. IMPRESSION: 1. Recent back surgery. 2. Acute hepatitis and possible liver failure, etiology of this is unclear. Toxins or acute viral would be most likely to dyspnea, given his recent history of surgery, must take into consideration p ossible pulmonary embolus. This would be somewhat less likely given his negative duplex ultrasound. 3. History of asthma. 4. Obstructive sleep apnea. 5. Thrombocytopenia. 6. Coagulopathy, likely secondary to liver failure. 7. Acute renal failure. RECOMMENDATIONS: 1. Agree with GI consult. 2. V/Q scan. 3. Echocardiogram, currently pending. 4. Deep vein thrombosis and pulmonary embolus prophylaxis. 5. Stress ulcer prophylaxis. /[id number]/MODL
--- NOTE | 2017-04-23 15:21 | SOAPPROG ---
SOAP Progress Note Assessment/Plan: Assessment: Pt is post op day 3, s/p revision Left L4-5 discectomy with TLIF, posterior fusion and instrumentation. Had been discharged in good condition yesterday. No sign of lumbar wound infection. Neurologically intact and preop LLE pain gone. Acute hepatitis/ etiology unknown. Pt does state that the baclofen given yesterday for severe hiccups seemed to coincide with his current symptoms. Plan: Per hospitalist and hepatology. 04/23/17 15:17 Subjective: Pt states he's not feeling well. Some nausea. Objective: Vital Signs Temp Pulse Resp BP Pulse Ox 37.0 C 103 H 16 123/85 H 92 04/23/17 11:47 04/23/17 11:47 04/23/17 11:47 04/23/17 11:47 04/23/17 11:47 Laboratory Results 04/23/17 12:07 04/22/17 04/23/17 04/24/17 05:59 05:59 05:59 Intake Total 1000 Balance 1000 PT 27.1 SEC (12.0-15.0) H 04/23/17 12:07 INR 2.48 (0.83-1.16) H 04/23/17 12:07 Lumbar wound with moderates serous drainage. No purulence. Minimal erythema. Minimally tender to palpation. Bridget's negative x 2. BLE motor 5/5. ICD10 Worksheet Patient Problems: Problems Problem Status Onset Acute respiratory failure Acute Chest pain Acute Elevated troponin Acute Hepatitis Acute Liver failure, acute Acute Lumbar disc herniation with radiculopathy Acute
[2017-04-23 15:49] LABS: ANION GAP 14 mEq/L (8-16); CALCIUM 8.6 mg/dL (8.5-10.4); CARBON DIOXIDE 21 mEq/l (22-31); CHLORIDE 101 mEq/L (97-110); CREATININE 2.5 mg/dL (0.7-1.3); GLOMERULAR FILTRATION RATE 27; GLUCOSE 184 mg/dL (70-100); POTASSIUM 4.6 mEq/L (3.5-5.2); SODIUM 136 mEq/L (134-144)
--- NOTE | 2017-04-23 15:55 | GHP ---
[f rep st] HISTORY AND PHYSICAL DATE OF ADMISSION: 04/23/2017 CHIEF COMPLAINT: Dizziness, chest pain, shortness of breath. HISTORY: The patient is a 56-year-old male, who underwent a lumbar spine fusion with Dr. Muñoz 4 days ago. He was just discharged from our hospital yesterday. He initially had a disk herniation at L4-L5 and did well postoperatively regarding surgical result. According to Dr. Muñoz's discharge summary, there were no complications relating to the surgery or hospitalization. According to the patient, he did feel slightly short of breath prior to leaving the hospital, but his room air saturation was 90% on room air. He went home and mostly went right to bed and slept continuously ever since discharge. He woke up at 9:30, walked to the bathroom, and took his evening medications and went back to sleep. About 11:30 p.m., his tried to wake him up and she had a difficult time arousing him, but he slept through till morning. At 5:30 this morning, he had some incontinence and then did wake up and stood and upon attempt at standing immediately became so dizzy with his head spinning that he could not stand up. He was very short of breath and had a new central pleuritic chest pain. His called 911. He had a fever at home to 99.0. He had some nausea and vomiting in the ambulance. He has had no recent change in leg edema. He has not taken much Tylenol at home except for 1 Percocet last night at 9:30 when he woke up to take medications. PAST MEDICAL HISTORY: 1. Asthma. 2. Hypertension. 3. Mild obstructive sleep apnea. Told he no longer needed CPAP. PAST SURGICAL HISTORY: 1. Appendectomy. 2. Multiple lumbar surgeries. MEDICATIONS: Please see computer record for full detailed list. ALLERGIES: He is allergic to all penicillins, cyclins, and mycins, IV dye, morphine and Demerol. SOCIAL HISTORY: No smoking. Social alcohol. He lives with his . REVIEW OF SYSTEMS: Complete review of systems obtained. Review of system is negative on constitutional, HEENT, GI, pulmonary, cardiovascular, , hematology , skin, muscular, endocrine, psych except for positives and negatives as in HPI. FAMILY HISTORY: Reviewed, noncontributory to presenting complaint. PHYSICAL EXAMINATION: GENERAL: Well-developed, well-nourished male in no acute distress. VITAL SIGNS: Temperature is 36.7, pulse 101, blood pressure 105/78, saturating 86% on room air. HEENT: Normal conjunctivae. Pupils react to light. ENT: Normal ears, nose. Hearing intact. Normal teeth. Oropharynx moist. NECK: Trachea midline. No thyromegaly. CHEST: Normal respiratory effort. LUNGS: Clear to auscultation bilaterally. CARDIOVASCULAR: Regular rate and rhythm. No murmur. No lower extremity edema. ABDOMEN: Soft, nontender. No hepatosplenomegaly. SKIN: Warm, dry, intact. No rash. MUSCULOSKELETAL: No cyanosis or clubbing. Strength 5/5 upper and lower extremity examination. NEUROLOGIC: Cranial nerves intact, normal sensation to light touch. PSYCH: Alert and oriented x3. Normal affect. Normal judgment and insight. Normal memory. LABS: White count 14.6, hematocrit 36.6, platelets 87. Sodium 135, potassium 5.2, chloride 101, bicarb 21, BUN 35, creatinine 2.0, glucose 143, total bili 2.0, conjugated bilirubin 0.9, troponin 0.658. INR is 2.09. D-dimer 1.45. TEST DATA: EKG reviewed by me. My personal interpretation is sinus tachycardia. No ST or T-wave changes. AST is greater than 7500. ALT is 9592. Tylenol level is less than 10. This case was discussed with Dr. Vamsi Hidalgo, emergency room physician. He was attempting to rule out pulmonary embolus, but given his acute renal failure and IV contrast dye allergy, CTA was not possible. He ordered bilateral lower extremity ultrasounds as well as a V/Q scan. He spoke with Dr. Muñoz, and she said do not anticoagulate unless there is definitive evidence of acute pulmonary embolus. ASSESSMENT/PLAN: 1. Pleuritic chest pain, shortness of breath, and hypoxemia. We are attempting to rule out pulmonary embolus. No CT angiogram secondary to acute renal failure and IV contrast allergy. A V/Q scan is pending. Bilateral lower extremity ultrasounds are negative for deep vein thrombosis. Will also order a stat echocardiogram. At this point, given his other laboratory abnormalities that are evolving as discussed below, my suspicion for pulmonary embolus has lowered. His INR is now elevated on his own due to what appears to be hepatic failure, and so even if he did have a pulmonary embolus, I am not sure what type of treatment would be necessary given his elevated INR at baseline. 2. Increased LFT consistent with hepatic failure. His INR is elevated. I have spoken with Dr. Portillo of gastroenterology. It does not appear that there was any Tylenol overdose, but Dr. Portillo recommends continuing N-acetylcysteine for a full course as there are some data showing this may have benefit in all forms of acute hepatitis. Viral hepatitis will be ruled out. Ultrasound with Dopplers to rule out Budd-Chiari. A full serology to be sent by Dr. Portillo. If he continues to go into worsening hepatic failure, transferring to a hepatic transplant center may be appropriate. Also in the differential diagnosis is shock liver. He went home on 20 mg of OxyContin twice a day, and the had a difficult time arousing him last evening so potentially there may have been a hypoxic or an anoxic event associated with this. 3. Acute renal failure. Will check a renal ultrasound and a urinalysis. Will follow serial creatinines after IV fluid resuscitation. Will hold losartan. 4. Troponin elevation. My suspicion is this is a strain due to his acute illness more likely than a primary ischemic event. Given his coagulopathy, I do not even want to give him an aspirin. 5. Asthma. This currently appears quiescent. Will continue inhalers as needed. CODE STATUS: Full. ADMISSION STATUS: 1. He is medically complex. Anticipate greater than 2 midnights required for stabilization. 2. DVT prophylaxis will be SCDs only. /[id number]/MODL MTDD
--- NOTE | 2017-04-23 16:01 | ECHO ---
[id number] + + [id number] : : [place] [id number] : : [phone] + + Adult Echocardiographic Report + ----+ :Name: Manny THOMSON Date: 04/23/2017 03:18 PM : : Hospital Admission Number: [id number] Location: 256: :: 1960 Gender: Male Height: 69 in : :Age: 56 yrs Race: WH Weight: 229 lb : :Reason For Study: Rule out PE- cant do CT : : BSA: 2.2 meters2 : :History: No previous : + ----+ MMode/2D Measurements \T\ Calculations IVSd: 1.4 cm LVIDd: 3.9 cm EDV(Teich): 66.0 ml % IVS thick: 94.2 % IVSs: 2.8 cm LVPWd: 1.4 cm LVOT diam: 2.1 cm LVOT area: 3.4 cm2 Normal Measurement Values: + + :LVIDd (3.5-5.7cm) IVSd (0.6-1.1cm) LVPWd (0.6-1.1cm) Aortic Root (2.0-3.7cm)Left Atrium (1.5-4.0cm): :LV Vol(d) (76-115ml) LV Vol(s) (29-48ml) Ejec Fraction (50-65%)PV Jared (0.6- 1.2m/s) TV Jared (0.4-1.0m/s) : :MV E Jared (0.8-1.0m/s)MV A Jared (0.3-1.0m/s)LVOT Jared (0.7-1.2m/s) Asc Ao Jared ( 0.9-1.8m/s) : + + Doppler Measurements \T\ Calculations MV E max jared: Ao mean P.4 mmHg LV V1 mean PG: SV(LVOT): 84.9 cm/sec Ao V2 mean: 2.8 mmHg 54.3 ml MV A max jared: 97.6 cm/sec LV V1 mean: 90.3 cm/sec Ao V2 VTI: 20.5 cm 77.9 cm/sec MV E/A: 0.94 LV V1 VTI: 15.9 cm MV dec time: 0.13 secAVA(I,D): 2.7 cm2 PA V2 max: TR max jared: 88.6 cm/sec 247.3 cm/sec PA max P.1 mmHg TR max P.5 mmHg RAP systole: 15.0 mmHg RVSP(TR): 39.5 mmHg Left Ventricle The left ventricle is normal in size and function. There is mild concentric left ventricular hypertrophy. Left ventricular systolic function is normal. Regional wall motion abnormalities cannot be excluded due to limited visualization. Flattened septum is consistent with RV pressure/volume overload. Right Ventricle The right ventricle is mildly dilated. The right ventricular systolic function is mild to moderately reduced. Atria The left atrial size is normal. Right atrial size is normal. Mitral Valve The mitral valve is normal in structure and function. There is no mitral valve stenosis. There is no mitral regurgitation noted. Tricuspid Valve The tricuspid valve is normal in structure and function. There is no tricuspid stenosis. There is mild tricuspid regurgitation. Right ventricular systolic pressure is 40mmHg. Aortic Valve The aortic valve is normal in structure and function. There is no aortic stenosis. There is no aortic insufficiency. Pulmonic Valve The pulmonic valve is not well visualized. There is no pulmonic valvular regurgitation. Great Vessels The aortic root is normal size. Pericardium/Pleural There is no pericardial effusion. There is a fat pad seen. Conclusion A complete two-dimensional transthoracic echocardiogram was performed (2D, M-mode, Doppler and color flow Doppler). Technically difficult study due to body habitus. The left ventricle is normal in size and function. There is mild concentric left ventricular hypertrophy. Regional wall motion abnormalities cannot be excluded due to limited visualization. The right ventricle is mildly dilated.The right ventricular systolic function is mild to moderately reduced. Flattened septum is consistent with RV pressure/volume overload. There is mild tricuspid regurgitation. Right ventricular systolic pressure is 40mmHg. Final Reading Physician: Hanh Marley signed on 04/23/2017 04:00 PM Ordering Physician: Diana Corbett Performed By: Ivana Hughes
[2017-04-23 16:07] LABS: CK-MB INTERPRETATION NEGATIVE (NEGATIVE)
[2017-04-23 17:55] LABS: COLOR AMBER; LEUKOCYTE ESTERASE,URINE NEGATIVE (NEGATIVE); NITRITE,URINE NEGATIVE (NEGATIVE)
--- NOTE | 2017-04-23 17:57 | SOAPPROG ---
SOAP Progress Note Assessment/Plan: Assessment: please see dictation # [id number] I discussed my recs with Dr. Corbett pager [phone] Objective: Vital Signs Temp Pulse Resp BP Pulse Ox 37.1 C 108 H 13 131/84 H 93 04/23/17 16:00 04/23/17 16:00 04/23/17 16:00 04/23/17 16:00 04/23/17 16:00 Laboratory Results 04/23/17 12:07 04/23/17 15:25 04/22/17 04/23/17 04/24/17 05:59 05:59 05:59 Intake Total 1000 Balance 1000 PT 27.1 SEC (12.0-15.0) H 04/23/17 12:07 INR 2.48 (0.83-1.16) H 04/23/17 12:07 ICD10 Worksheet Patient Problems: Problems Problem Status Onset Acute respiratory failure Acute Chest pain Acute Elevated troponin Acute Hepatitis Acute Liver failure, acute Acute Lumbar disc herniation with radiculopathy Acute
[2017-04-23 18:05] LABS: AMORPHOUS PRESENT /hpf (NONE-1+); MUCUS 1+ /lpf (NONE-1+); RBC,URINE 15-25 /hpf (0-3)
[2017-04-23] MEDS: oxyCODONE IR 5 MG TAB PO PRN ×2 (18:31→22:44)
--- NOTE | 2017-04-23 18:45 | GCON ---
[f rep st] CONSULTATION INPATIENT NEPHROLOGY CONSULTATION DATE OF CONSULTATION: 04/23/2017 REFERRING PHYSICIAN: Diana Corbett MD REASON FOR CONSULTATION: Acute kidney injury. HPI: The patient is a 56-year-old man with a history of hypertension and asthma who presented to [facility] emergency room earlier today after an episode of confusion, chest pain and dizziness. He was just recently admitted to [facility] for an elective lumbar spine fusion with Dr. Muñoz 4 da ys ago. His hospital course was noted to be unremarkable and there were no complications. He was d ischarged on oxycodone and diazepam. His said he took a dose of each of these medications last night before going to bed. She notes that she did have some difficulty arousing him around 11 o'cl ock at night. Early this a.m., when he woke up, he became very dizzy upon standing, short of breath , had developed chest pain. He also became very confused and reports a ringing sensation in his ear s. Thus his called paramedics. His blood pressure was in the 90s on arrival. He was given IV normal saline in the emergency room. He had a very abnormal labs concerning for multiple organ evan lure. His creatinine was 2.0. His AST was 7500. ALT was 9500. His LDH was greater than 10,000. His troponin was 0.658 and CK was only 505. He has been admitted to the ICU. Hemodynamically he haynes s been stable. He is continuing to receive IV fluids. His mental status has returned to normal. O n further discussion with the patient's , she notes that during his recent admission his blood p ressure was noted to be somewhat on the low side, to the point where his hypertensive medications we re held during that hospitalization. The patient denies any diarrhea or vomiting. He reports that his appetite has been somewhat decreased since being home and has not been eating as much. He denie s any dysuria or hematuria. He has not been taking any NSAIDs. He denies any history of nephrolith iasis. He has not received any IV contrast. He did undergo a VQ scan that was negative today. His abdominal ultrasound showed a normal appearing liver with patent portal and hepatic veins. His blo od pressure is now in the 140s. He has voided approximately 800 mL of urine so far today. He is fe eling much better since arrival. REVIEW OF SYSTEMS: GENERAL: No fevers. He has had decreased oral intake. He did have a period of confusion today. HEENT: No sore throat. PULMONARY: He did have some shortness of breath earlier that has improved. No cough. CARDIAC: Some pleuritic chest pain, that has since resolved. No lo wer extremity edema. GI: No nausea, vomiting, or diarrhea. : No decreased urine output. No dy suria. No hematuria. No flank pain. SKIN: No rash. NEUROLOGIC: He did have a period of confusi on and ear ringing, this has since resolved. He had a period of difficulty arousing last night afte r taking pain medications. MUSCULOSKELETAL: His back pain has been controlled. He did recently un dergo a lumbar fusion. ENDOCRINE: No history of diabetes. No polyuria or polydipsia. PAST MEDICAL HISTORY: 1. Hypertension. 2. BRYANT, not on CPAP. 3. Hyperlipidemia. 4. Asthma. 5. Recent lumbar fusion earlier this week here at [facility]. SOCIAL HISTORY: He is . Denies any tobacco or alcohol or illicit drugs. FAMILY HISTORY: Denies any kidney disease in the family. CURRENT MEDICATIONS: N-acetylcysteine IV, albuterol p.r.n., Dilaudid p.r.n., Singulair 10 mg p.o. d aily, Zofran p.r.n., oxycodone p.r.n., Protonix 40 mg p.o. daily, Phenergan p.r.n., propranolol 20 m g p.o. daily, IV normal saline at 125 mL an hour. PHYSICAL EXAM: VITAL SIGNS: His temperature is 37.1, blood pressure 131/84, pulse 103, saturating 93% on 4 L of oxygen. GENERAL: He is in no acute distress, lying flat in bed comfortably, appropri ate and answering all questions. Does not appear to be in any discomfort. HEENT: His mucous membr anes are moist. There is no scleral icterus. NECK: Supple. LUNGS: Clear to auscultation bilater ally, somewhat difficult exam due to his back brace that is on. CARDIOVASCULAR: Regular rate and r hythm. No rubs. ABDOMEN: Soft, nontender. Normal bowel sounds. EXTREMITIES: Trace edema bilate rally, warm, well perfused. NEUROLOGIC: Alert and oriented x3. SKIN: No obvious rash. LABS: His most recent labs from this afternoon show sodium 136, potassium 4.6, chloride 101, bicarb tamra 21, BUN 43, creatinine 2.5, glucose 184, calcium 8.6. CK 505. LDH greater than 10,000. Trop onin 0.775. Total protein 5.3, albumin 3.0, total bilirubin 2.0, conjugated bilirubin 0.9, AST grea ter than 7500, ALT 9592, alkaline phosphatase 36. White blood cell count 14.6, hemoglobin 12.6, hem atocrit 36.6, platelets 87. RBC morphology appeared to be normal. Acetaminophen level was less suzette n 10. ASSESSMENT AND PLAN: The patient is a 56-year-old man with a history of hypertension, asthma who re cently underwent a lumbar fusion surgery who now presents with an acute episode of confusion, acute hepatitis, acute kidney injury, thrombocytopenia and hypotension. 1. Acute kidney injury. His creatinine on April 13 was normal at 0.9. His most recent value is 2 .5. He is nonoliguric. Most likely this is acute tubular necrosis in the setting of a hypotensive event after high-dose narcotics and diazepam. However, I am concerned about the significance of his low platelets and elevated LDH. TTP certainly needs to be on the differential. The initial smear is not suggestive of schistocytes. I will add a haptoglobin to be sure. We will also check a renal ultrasound to exclude obstruction. We will continue aggressive IV fluids as he was somewhat hypote nsive over the past few days. Discussing with the hospitalist, it does not appear that he received any concerning anesthesia agents or had any new medications recently started other than the narcotic s. Discussing with his , however, it does seem like he may have been relatively hypotensive for the last few days. At this point there are no acute indications for dialysis but we will continue to follow very closely with you. I will send urine studies as well. 2. Acute hepatitis. The gastroenterology team has seen him. Hopefully this is consistent with juan ck liver but it is quite impressive elevation in enzymes. He is receiving N-acetylcysteine. A Tyle nol level is negative. Abdominal ultrasound showed patent hepatic and portal veins. No new medicat ions other than the narcotics. He has extensive lab studies pending. 3. Thrombocytopenia. Again, this may be related to his acute liver dysfunction but we are doing fu rther labs to exclude TTP including haptoglobin, repeat LDH and evaluation of a peripheral smear. W e will continue to follow this level. 4. Pleuritic chest pain. His VQ scan was negative for PE. Chest x-ray is unremarkable. Symptoms are improved. Thank you very much for the consultation. We will continue follow closely with you. Please do not hesitate to call with any questions. I have discussed my recommendations with Dr. Corbett. /[id number]/MODL
[2017-04-23 23:00] LABS: EOSMR EOSINOPHILS NO EOS SEEN (NO EOS SEEN)
[2017-04-23 23:04] LABS: EOSMR PMNS MANY PMN CELLS
[2017-04-23 23:08] LABS: EOSMR EPITHELIAL CELLS MODERATE EPITH CELLS; EOSMR RBCS FEW RBCS
--- NOTE | 2017-04-24 04:52 | CPEKG ---
Heart Rate: 103 RR Interval: 583 P-R Interval: 180 QRSD Interval: 88 QT Interval: 328 QTC Interval: 430 P [place]: 37 QRS [place]: 54 T Wave [place]: 2 EKG Severity - OTHERWISE NORMAL ECG - EKG Impression: SINUS TACHYCARDIA EKG Impression: NONSPECIFIC INFERIOR T-WAVE ABNORMALITIES. Electronically Signed By: Tiera Bauman 25-Apr-2017 10:26:19
[2017-04-24] MEDS: ONDANSETRON 4 MG/2 ML VIAL IVP PRN ×2 (05:22→13:15)
[2017-04-24 05:41] LABS: % IMMATURE GRANULYOCYTES 0.7 % (0.0-1.1); ABSOLUTE IMMATURE GRANULOCYTES 0.07 10^3/uL (0.00-0.10); ADD DIFF? NO; ADD MORPH? NO; ADD SCAN? NO; ATYPICAL LYMPHOCYTE FLAG 0 (0-99); FRAGMENT RBC FLAG 0 (0-99); HEMATOCRIT 34.3 % (40.0-51.0); LEFT SHIFT FLG 0 (0-99); LIPEMIA HEMOLYSIS FLAG 90 (0-99); MEAN CELL HEMOGLOBIN 30.8 pg (27.9-34.1); MEAN CELL VOLUME 87.9 fL (81.5-99.8); MEAN PLATELET VOLUME 9.1 fL (8.7-11.7); PLATELET CLUMPS FLAG 30 (0-99); PLATELET COUNT 55 10^3/uL (150-400); RED CELL DISTRIBUTION WIDTH 13.2 % (11.5-15.2)
[2017-04-24 05:50] LABS: INR 1.65 (0.83-1.16); PROTIME(PATIENT) 19.6 SEC (12.0-15.0)
[2017-04-24 05:52] LABS: ALBUMIN 2.9 g/dL (3.5-5.0); ALKALINE PHOSPHATASE 41 IU/L (38-126); ANION GAP 15 mEq/L (8-16); BILIRUBIN,TOTAL 1.3 mg/dL (0.1-1.4); BILIRUBIN-CONJUGATED 0.6 mg/dL (0.0-0.5); BILIRUBIN-UNCONJUGATED 0.7 mg/dL (0.0-1.1); CALCIUM 8.6 mg/dL (8.5-10.4); CARBON DIOXIDE 19 mEq/l (22-31); CHLORIDE 101 mEq/L (97-110); CREATININE 3.8 mg/dL (0.7-1.3); GLOMERULAR FILTRATION RATE 17; GLUCOSE 118 mg/dL (70-100); MAGNESIUM 2.2 mg/dL (1.6-2.3); POTASSIUM 4.4 mEq/L (3.5-5.2); SODIUM 135 mEq/L (134-144); TOTAL PROTEIN 5.1 g/dL (6.3-8.2)
[2017-04-24 06:09] LABS: ALANINE AMINOTRANSFERASE 7186 IU/L (21-72); ASPARTATE AMINOTRANSFERASE 5708 IU/L (17-59)
[2017-04-24 06:46] LABS: CK-MB INTERPRETATION NEGATIVE (NEGATIVE)
[2017-04-24 07:08] LABS: CREATINE KINASE-MB FRACTION 9.05 ng/mL (0.00-3.19)
[2017-04-24] MEDS: PROMETHAZINE HCL 25 MG/ML INJ IVP PRN ×3 (07:37→22:02)
--- NOTE | 2017-04-24 08:07 | SOAPPROG ---
SOAP Progress Note Assessment/Plan: Assessment: 1)POONAM- nonoliguric -normal Cr baseline -low urine Na (17) -suspect ATN in setting of hypotension, narcotics, poor po intake -TTP possible with high LDH, low plts- these lab findings may reflect the acute hepatitis/cellular necrosis but am awaiting haptoglobin and periph smear review to be sure -UA with hematuria but this was carlton sample- no significant proteinuria -would continue IVF, hold anti-HTN meds to allow BP to run on higher side (150s currently which is ok) -will get renal u/s -no acute HD indications currently but following closely 2)Acute hepatitis -?shock liver -LFTs improved this am, INR better (bili and alk phos wnl) -tylenol level was ok, was started empirically on NAC -portal/hepatic veins ok on u/s, no obstruction noted -extensive serologies pending -GI following 3)thrombocytopenia -awaiting haptoglobin and periph smear, DIC panel 4)s/p recent lumbar fusion- surgery evaluated and feels wound ok 5)HTN- hold outpt meds 6)lactic acidosis- better, lactate normal today I discussed with ICU team pager [phone] 04/24/17 08:20 Subjective: Feels ok- some nausea this am but no vomiting, wants to try to eat. Urine Output has decreased some overnight. Denies sob, cp. SBP in 150s. No fevers. Objective: Vital Signs Temp Pulse Resp BP Pulse Ox 36.6 C 102 H 13 156/97 H 94 04/23/17 20:00 04/24/17 06:00 04/24/17 06:00 04/24/17 06:00 04/24/17 06:00 Laboratory Results 04/24/17 05:30 04/24/17 05:30 04/23/17 04/24/17 04/25/17 05:59 05:59 05:59 Intake Total 3840 Output Total 1110 Balance 2730 PT 19.6 SEC (12.0-15.0) H 04/24/17 05:30 INR 1.65 (0.83-1.16) H 04/24/17 05:30 Physical Exam - Physical Exam General Appearance: no apparent distress, other (lying in bed comfortably, back brace on) EENT: other (mmm) Neck: supple Respiratory: lungs clear Cardiac/Chest: regular rate, rhythm, other (no rub) Abdomen: normal bowel sounds, non-tender, soft Rectal: other (carlton yellow urine) Extremities: other (trace ankle edema bilat,warm) Neuro/Psych: alert, oriented x 3 ICD10 Worksheet Patient Problems: Problems Problem Status Onset Acute respiratory failure Acute Chest pain Acute Elevated troponin Acute Hepatitis Acute Liver failure, acute Acute Lumbar disc herniation with radiculopathy Acute
--- NOTE | 2017-04-24 08:25 | SOAPPROG ---
SOAP Progress Note Assessment/Plan: Assessment/plan: 1. Hepatitis - multiple labs pending - slight improvement in LFTs today - INR stable/improved - suspect toxic or ischemic injury - mentation remains good - if toxic... maybe cipro - if ischemic.... should resolve - US showed normal jamison-portal flows - continue NAC, despite nl tylenol level (some studies show benefit in non- tylenol induce CUSTODIAL when encephalopathy not present) - ok to dc from ICU to med surg bed 2. ARF - appreciate renal help 3. Back surgery - will benefit from inpt pt/ot if he can tolerate it - will follow, call with questions 04/24/17 08:29 Subjective: CC: f/u acute hepatitis S: remains weak no confusion no fever no chills ongoing back pain no vomiting tolerating po intake Objective: Vital Signs Temp Pulse Resp BP Pulse Ox 36.6 C 102 H 13 156/97 H 94 04/23/17 20:00 04/24/17 06:00 04/24/17 06:00 04/24/17 06:00 04/24/17 06:00 Laboratory Results 04/24/17 05:30 04/24/17 05:30 04/23/17 04/24/17 04/25/17 05:59 05:59 05:59 Intake Total 3840 Output Total 1110 Balance 2730 PT 19.6 SEC (12.0-15.0) H 04/24/17 05:30 INR 1.65 (0.83-1.16) H 04/24/17 05:30 Laboratory Tests 04/23/17 04/23/17 04/23/17 09:38 09:40 12:07 WBC Hgb Hct Plt Count INR VBG Lactic Acid Sodium Potassium Chloride Carbon Dioxide Anion Gap BUN Creatinine Total Bilirubin Conjugated Bilirubin Unconjugated Bilirubin AST > 7500 H ALT 9592 H Alkaline Phosphatase Lactate Dehydrogenase > 42529 H Creatine Kinase CK-MB (CK-2) Fraction Troponin I Total Protein Albumin Hmuaq-9-Lguhmplchyp Ceruloplasmin TSH Acetaminophen < 10 L PAUL Screen Anti-Mitochondrial Ab Anti-Smooth Muscle Ab CMV IgM Ab EBV Capsid Ag IgG Ab EBV Capsid Ag IgM Ab EBV Early Antigen IgG EBV Nuclear Antigen Ab EBV Interpretation Hepatitis A IgM Ab Hepatitis A Ab Total Hep Bs Antigen Hep Bs Antibody Hep Bs Antibody, Quant Hep B Core IgM Ab Hepatitis C Antibody HCV RNA (PCR) IUs/ml HCV RNA PCR log IUs/ml HSV I&II IgM Ab HIV 1&2 Antibody VZV IgG Antibody VZV IgG Ab Index VZV IgG,IgM Antibody 04/23/17 04/23/17 04/23/17 15:25 15:25 17:58 WBC Hgb Hct Plt Count INR VBG Lactic Acid Sodium Potassium Chloride Carbon Dioxide Anion Gap BUN Creatinine Total Bilirubin Conjugated Bilirubin Unconjugated Bilirubin AST ALT Alkaline Phosphatase Lactate Dehydrogenase Creatine Kinase CK-MB (CK-2) Fraction Troponin I 1.150 H Total Protein Albumin Rjtgb-9-Xsmubcymdct Pending Ceruloplasmin Pending TSH Acetaminophen PAUL Screen Pending Anti-Mitochondrial Ab Pending Anti-Smooth Muscle Ab Pending CMV IgM Ab Pending EBV Capsid Ag IgG Ab Pending EBV Capsid Ag IgM Ab Pending EBV Early Antigen IgG Pending EBV Nuclear Antigen Ab Pending EBV Interpretation Pending Hepatitis A IgM Ab Pending Hepatitis A Ab Total Pending Hep Bs Antigen Pending Hep Bs Antibody Pending Hep Bs Antibody, Quant Pending Hep B Core IgM Ab Pending Hepatitis C Antibody Pending HCV RNA (PCR) IUs/ml Pending HCV RNA PCR log IUs/ml Pending HSV I&II IgM Ab Pending HIV 1&2 Antibody VZV IgG Antibody Pending VZV IgG Ab Index Pending VZV IgG,IgM Antibody Pending 04/24/17 04/24/17 04/24/17 00:40 05:30 05:30 WBC 10.14 H Hgb 12.0 L Hct 34.3 L Plt Count 55 L INR VBG Lactic Acid 1.1 D Sodium 135 Potassium 4.4 Chloride 101 Carbon Dioxide 19 L Anion Gap 15 BUN 60 H Creatinine 3.8 H D Total Bilirubin 1.3 Conjugated Bilirubin 0.6 H Unconjugated Bilirubin 0.7 AST 5708 H ALT 7186 H Alkaline Phosphatase 41 Lactate Dehydrogenase Creatine Kinase 567 H CK-MB (CK-2) Fraction 9.05 H Troponin I Total Protein 5.1 L Albumin 2.9 L Kpxzx-7-Mzkhrmsznnw Ceruloplasmin TSH 0.863 Acetaminophen PAUL Screen Anti-Mitochondrial Ab Anti-Smooth Muscle Ab CMV IgM Ab EBV Capsid Ag IgG Ab EBV Capsid Ag IgM Ab EBV Early Antigen IgG EBV Nuclear Antigen Ab EBV Interpretation Hepatitis A IgM Ab Hepatitis A Ab Total Hep Bs Antigen Hep Bs Antibody Hep Bs Antibody, Quant Hep B Core IgM Ab Hepatitis C Antibody HCV RNA (PCR) IUs/ml HCV RNA PCR log IUs/ml HSV I&II IgM Ab HIV 1&2 Antibody VZV IgG Antibody VZV IgG Ab Index VZV IgG,IgM Antibody 04/24/17 04/24/17 05:30 05:30 WBC Hgb Hct Plt Count INR 1.65 H VBG Lactic Acid Sodium Potassium Chloride Carbon Dioxide Anion Gap BUN Creatinine Total Bilirubin Conjugated Bilirubin Unconjugated Bilirubin AST ALT Alkaline Phosphatase Lactate Dehydrogenase Creatine Kinase CK-MB (CK-2) Fraction Troponin I Total Protein Albumin Hxtje-9-Cudpylaaood Ceruloplasmin TSH Acetaminophen PAUL Screen Anti-Mitochondrial Ab Anti-Smooth Muscle Ab CMV IgM Ab EBV Capsid Ag IgG Ab EBV Capsid Ag IgM Ab EBV Early Antigen IgG EBV Nuclear Antigen Ab EBV Interpretation Hepatitis A IgM Ab Hepatitis A Ab Total Hep Bs Antigen Hep Bs Antibody Hep Bs Antibody, Quant Hep B Core IgM Ab Hepatitis C Antibody HCV RNA (PCR) IUs/ml HCV RNA PCR log IUs/ml HSV I&II IgM Ab HIV 1&2 Antibody Pending VZV IgG Antibody VZV IgG Ab Index VZV IgG,IgM Antibody Physical Exam - Physical Exam General Appearance: alert, no apparent distress EENT: PERRL/EOMI, No scleral icterus (R), No scleral icterus (L) Respiratory: chest non-tender, lungs clear, normal breath sounds Cardiac/Chest: normal peripheral pulses, regular rate, rhythm, No edema Abdomen: normal bowel sounds, non-tender, soft, No organomegaly, No distended, No guarding, No rebound Skin: normal color, No jaundice Extremities: normal range of motion, non-tender, No pedal edema Neuro/Psych: no motor/sensory deficits, alert, normal mood/affect ICD10 Worksheet Patient Problems: Problems Problem Status Onset Acute respiratory failure Acute Chest pain Acute Elevated troponin Acute Hepatitis Acute Liver failure, acute Acute Lumbar disc herniation with radiculopathy Acute
[2017-04-24] MEDS: PROPRANOLOL HCL 20 MG TAB PO SCH (08:51)
[2017-04-24] MEDS: oxyCODONE IR 5 MG TAB PO PRN ×3 (08:59→21:51)
[2017-04-24] MEDS ORDERED: NON-FORMULARY NEW DRUG (Omeprazole [Omeprazole] 20 MG) PO SCH (09:00)
[2017-04-24] MEDS: PANTOPRAZOLE SODIUM 40 MG TAB PO SCH (09:02)
--- NOTE | 2017-04-24 09:22 | PDINTPN ---
M[employer] Progress Note Assessment/Plan: Assessment/plan: * Acute hepatitis with elevation of transaminases. AST and ALT of improved. Still unclear etiology, whether toxic versus hypovolemic cause. Appreciate GI helped. -continue to follow liver function tests closely -continue N-acetylcysteine for now * Recent back surgery * Obstructive sleep apnea * Coagulopathy-improved * Thrombocytopenia-platelets down to 55. * Acute renal failure-BUN and creatinine little worse. -per Nephrology * Disposition-okay for transfer to floor Subjective: Up in chair. Comfortable. Back pain is minimal. Objective: Vital Signs Temp Pulse Resp BP Pulse Ox 36.6 C 102 H 13 156/97 H 94 04/23/17 20:00 04/24/17 06:00 04/24/17 06:00 04/24/17 06:00 04/24/17 06:00 Laboratory Results 04/24/17 05:30 04/24/17 05:30 04/23/17 04/24/17 04/25/17 05:59 05:59 05:59 Intake Total 3840 Output Total 1110 Balance 2730 PT 19.6 SEC (12.0-15.0) H 04/24/17 05:30 INR 1.65 (0.83-1.16) H 04/24/17 05:30 Physical Exam - Physical Exam General Appearance: alert EENT: PERRL/EOMI, normal ENT inspection, pharynx normal, TMs normal Neck: non-tender, full range of motion, supple, normal inspection Respiratory: chest non-tender, lungs clear, normal breath sounds Cardiac/Chest: normal peripheral pulses, regular rate, rhythm Peripheral Pulses: 2+: carotid (R), carotid (L), femoral (R), femoral (L), dorsalis-pedis (R), dorsalis-pedis (L) Abdomen: normal bowel sounds, non-tender, soft Male Genitalia: deferred Rectal: deferred Back: Normal inspection Skin: normal color, warm/dry Extremities: non-tender, normal inspection Neuro/Psych: no motor/sensory deficits, alert, normal mood/affect, oriented x 3 ICD10 Worksheet Patient Problems: Problems Problem Status Onset Acute respiratory failure Acute Chest pain Acute Elevated troponin Acute Hepatitis Acute Liver failure, acute Acute Lumbar disc herniation with radiculopathy Acute
[2017-04-24] MEDS: MONTELUKAST SODIUM 10 MG TAB PO SCH (09:41)
[2017-04-24 11:47] LABS: ALBUMIN 2.7 g/dL (3.5-5.0); ANION GAP 16 mEq/L (8-16); CALCIUM 8.8 mg/dL (8.5-10.4); CARBON DIOXIDE 18 mEq/l (22-31); CHLORIDE 99 mEq/L (97-110); CREATININE 4.6 mg/dL (0.7-1.3); GLOMERULAR FILTRATION RATE 13; GLUCOSE 114 mg/dL (70-100); POTASSIUM 4.2 mEq/L (3.5-5.2); SODIUM 133 mEq/L (134-144)
[2017-04-24 12:38] LABS: LACTATE DEHYDROGENASE 4849 IU/L (313-618)
--- NOTE | 2017-04-24 15:47 | SOAPPROG ---
SOAP Progress Note Assessment/Plan: Assessment: Pt is post op day 3, s/p revision Left L4-5 discectomy with TLIF, posterior fusion and instrumentation. Had been discharged in good condition yesterday. No sign of lumbar wound infection. Neurologically intact and preop LLE pain gone. Acute hepatitis/ etiology unknown. Pt does state that the baclofen given yesterday for severe hiccups seemed to coincide with his current symptoms. Plan: Per hospitalist and hepatology. 04/23/17 15:17 04/24/17 15:44 post op day 4, s/p l4-5 lami, tlif, post fusion, instrum. Acute renal failure: dialysis planned for tomorrow. Acute hepatitis: etiology uncertain. Appreciate all subspecialty help. Stable from surgical standpoint and wound continues to look good. Subjective: Pt states he feels kind of punky. No leg pain. Mild sob. Objective: Vital Signs Temp Pulse Resp BP Pulse Ox 36.6 C 92 12 146/105 H 95 04/23/17 20:00 04/24/17 13:17 04/24/17 13:17 04/24/17 13:17 04/24/17 13:17 Laboratory Results 04/24/17 05:30 04/24/17 11:14 04/23/17 04/24/17 04/25/17 05:59 05:59 05:59 Intake Total 3840 Output Total 1110 Balance 2730 PT 19.6 SEC (12.0-15.0) H 04/24/17 05:30 INR 1.65 (0.83-1.16) H 04/24/17 05:30 BLE motor 5/5. SLR negative x 2. Bridget's neg. x 2. Neuro intact BLE . Lumbar wound clean and only mild sero- sanguinous drainage. No sign of infection. ICD10 Worksheet Patient Problems: Problems Problem Status Onset Acute respiratory failure Acute Chest pain Acute Elevated troponin Acute Hepatitis Acute Liver failure, acute Acute Lumbar disc herniation with radiculopathy Acute
--- NOTE | 2017-04-24 16:24 | HOSPPROG ---
Hospitalist Progress Note Assessment/Plan: * Suspect shock liver -LFT and INR improving * ARF due to ATN - hypotension + narcotics + poor PO -d/w Dr. Knott - rapid worsening creatinine and low UOP -suspect he will need acute dialysis in am -tentatively schedule dialysis catheter with IR in am * s/p lumbar fusion -Dr. Price following * Pleuritic CP/SOB -PE ruled out with negative V/Q, LE US and ECHO * Non-STEMI -suspect troponin elevation due to hypotension as well -no cath now due to ARF -consider stress testing prior to discharge Subjective: Better. Still SOB,CP but better Objective: Vital Signs Temp Pulse Resp BP Pulse Ox 36.6 C 92 12 146/105 H 95 04/23/17 20:00 04/24/17 13:17 04/24/17 13:17 04/24/17 13:17 04/24/17 13:17 Laboratory Results 04/24/17 05:30 04/24/17 11:14 04/23/17 04/24/17 04/25/17 05:59 05:59 05:59 Intake Total 3840 Output Total 1110 Balance 2730 PT 19.6 SEC (12.0-15.0) H 04/24/17 05:30 INR 1.65 (0.83-1.16) H 04/24/17 05:30 EKG viewed, my personal interpretation is - NSR, no ischemic change - Physical Exam Constitutional: no apparent distress, appears nourished, not in pain Cardiovascular: regular rate and rhythym, no murmur, rub, or gallop Respiratory: no respiratory distress, no rales or rhonchi, clear to auscultation Gastrointestinal: normoactive bowel sounds, soft, non-tender abdomen, no palpable masses Skin: no rashes or abrasions, no fluctuance, no induration Neurologic: AAOx3, sensation intact bilaterally Psychiatric: interacting appropriately, not anxious, not encephalopathic, thought process linear ICD10 Worksheet Patient Problems: Problems Problem Status Onset Acute respiratory failure Acute Chest pain Acute Elevated troponin Acute Hepatitis Acute Liver failure, acute Acute Lumbar disc herniation with radiculopathy Acute
[2017-04-25] MEDS: PROMETHAZINE HCL 25 MG/ML INJ IVP PRN (04:58)
[2017-04-25 05:30] LABS: % IMMATURE GRANULYOCYTES 0.7 % (0.0-1.1); ABSOLUTE IMMATURE GRANULOCYTES 0.07 10^3/uL (0.00-0.10); ADD DIFF? NO; ADD MORPH? NO; ADD SCAN? NO; ATYPICAL LYMPHOCYTE FLAG 0 (0-99); FRAGMENT RBC FLAG 0 (0-99); HEMOGLOBIN 12.1 g/dL (13.7-17.5); LEFT SHIFT FLG 0 (0-99); LIPEMIA HEMOLYSIS FLAG 90 (0-99); MEAN CELL HEMOGLOBIN 31.3 pg (27.9-34.1); MEAN CELL HEMOGLOBIN CONCENTR. 36.7 g/dL (32.4-36.7); MEAN CELL VOLUME 85.3 fL (81.5-99.8); MEAN PLATELET VOLUME 9.1 fL (8.7-11.7); PLATELET CLUMPS FLAG 0 (0-99); PLATELET COUNT 77 10^3/uL (150-400); RED BLOOD CELL COUNT 3.87 10^6/uL (4.40-6.38); RED CELL DISTRIBUTION WIDTH 12.9 % (11.5-15.2)
[2017-04-25 05:40] LABS: INR 1.36 (0.83-1.16); PROTIME(PATIENT) 16.8 SEC (12.0-15.0)
[2017-04-25 05:57] LABS: ALBUMIN 3.1 g/dL (3.5-5.0); ALKALINE PHOSPHATASE 57 IU/L (38-126); ANION GAP 17 mEq/L (8-16); BILIRUBIN,TOTAL 1.2 mg/dL (0.1-1.4); BILIRUBIN-CONJUGATED 0.6 mg/dL (0.0-0.5); BILIRUBIN-UNCONJUGATED 0.6 mg/dL (0.0-1.1); CALCIUM 8.9 mg/dL (8.5-10.4); CARBON DIOXIDE 18 mEq/l (22-31); CHLORIDE 100 mEq/L (97-110); CREATININE 6.7 mg/dL (0.7-1.3); GLOMERULAR FILTRATION RATE 9; GLUCOSE 90 mg/dL (70-100); POTASSIUM 4.6 mEq/L (3.5-5.2); SODIUM 135 mEq/L (134-144); TOTAL PROTEIN 5.3 g/dL (6.3-8.2)
[2017-04-25 06:33] LABS: ASPARTATE AMINOTRANSFERASE 1979 IU/L (17-59)
[2017-04-25 06:44] LABS: ALANINE AMINOTRANSFERASE 4959 IU/L (21-72)
[2017-04-25] MEDS: MONTELUKAST SODIUM 10 MG TAB PO SCH ×3 (09:22→16:27)
[2017-04-25] MEDS: PANTOPRAZOLE SODIUM 40 MG TAB PO SCH ×2 (09:22→16:26)
[2017-04-25] MEDS: PROPRANOLOL HCL 20 MG TAB PO SCH ×4 (09:23→16:29)
--- NOTE | 2017-04-25 09:54 | SOAPPROG ---
SOAP Progress Note Assessment/Plan: Assessment/plan: 1. Hepatitis - multiple labs pending - LFTs/INR gradually improving - suspect ischemic injury - mentation remains good - ok to dc NAC - anticipate complete resolution of LFTs and no intermediate sequelae 2. ARF - appreciate renal help - worsening, may get HD 3. Back surgery -will sign off, call with any questions. Subjective: CC: f/u hepatitis S: no fever no confusion still feeling malaise and weakness and fatigue no abd pain no vomiting Objective: Vital Signs Temp Pulse Resp BP Pulse Ox 37.2 C 99 16 150/81 H 96 04/25/17 08:00 04/25/17 08:00 04/25/17 08:00 04/25/17 08:00 04/25/17 08:00 Laboratory Results 04/25/17 05:22 04/25/17 05:22 04/24/17 04/25/17 04/26/17 05:59 05:59 05:59 Intake Total 3840 1191 Output Total 1110 200 Balance 2730 991 PT 16.8 SEC (12.0-15.0) H 04/25/17 05:22 INR 1.36 (0.83-1.16) H 04/25/17 05:22 Laboratory Tests 04/23/17 04/23/17 04/23/17 09:38 09:38 09:40 WBC RBC Hgb Hct Plt Count INR BUN 35 H Creatinine 2.0 H Total Bilirubin 2.0 H Conjugated Bilirubin 0.9 H Unconjugated Bilirubin 1.1 AST > 7500 H ALT 9592 H Alkaline Phosphatase 36 L Uelil-5-Fkxefavcvai Ceruloplasmin Acetaminophen < 10 L PAUL Screen Anti-Mitochondrial Ab Anti-Smooth Muscle Ab CMV IgM Ab EBV Capsid Ag IgG Ab EBV Capsid Ag IgM Ab EBV Early Antigen IgG EBV Nuclear Antigen Ab EBV Interpretation Hepatitis A IgM Ab Hepatitis A Ab Total Hep Bs Antigen Hep Bs Antibody Hep Bs Antibody, Quant Hep B Core IgM Ab Hepatitis C Antibody HCV RNA (PCR) IUs/ml HCV RNA PCR log IUs/ml HSV I&II IgM Ab HIV 1&2 Antibody VZV IgG Antibody VZV IgG Ab Index VZV IgG,IgM Antibody 04/23/17 04/23/17 04/23/17 12:07 15:25 15:25 WBC RBC Hgb Hct Plt Count INR 2.48 H BUN Creatinine Total Bilirubin Conjugated Bilirubin Unconjugated Bilirubin AST ALT Alkaline Phosphatase Wzdug-8-Jxicjzychse Pending Ceruloplasmin Pending Acetaminophen PAUL Screen Pending Anti-Mitochondrial Ab Pending Anti-Smooth Muscle Ab Pending CMV IgM Ab Pending EBV Capsid Ag IgG Ab Pending EBV Capsid Ag IgM Ab Pending EBV Early Antigen IgG Pending EBV Nuclear Antigen Ab Pending EBV Interpretation Pending Hepatitis A IgM Ab NEGATIVE Hepatitis A Ab Total NEGATIVE Hep Bs Antigen NEGATIVE Hep Bs Antibody Pending Hep Bs Antibody, Quant Pending Hep B Core IgM Ab NEGATIVE Hepatitis C Antibody NEGATIVE HCV RNA (PCR) IUs/ml Pending HCV RNA PCR log IUs/ml Pending HSV I&II IgM Ab Pending HIV 1&2 Antibody VZV IgG Antibody Pending VZV IgG Ab Index Pending VZV IgG,IgM Antibody Pending 04/23/17 04/24/17 04/24/17 15:25 05:30 05:30 WBC RBC Hgb Hct Plt Count INR 1.65 H BUN 43 H 60 H Creatinine 2.5 H 3.8 H D Total Bilirubin 1.3 Conjugated Bilirubin 0.6 H Unconjugated Bilirubin 0.7 AST 5708 H ALT 7186 H Alkaline Phosphatase 41 Pgqju-9-Wudppwitqeb Ceruloplasmin Acetaminophen PAUL Screen Anti-Mitochondrial Ab Anti-Smooth Muscle Ab CMV IgM Ab EBV Capsid Ag IgG Ab EBV Capsid Ag IgM Ab EBV Early Antigen IgG EBV Nuclear Antigen Ab EBV Interpretation Hepatitis A IgM Ab Hepatitis A Ab Total Hep Bs Antigen Hep Bs Antibody Hep Bs Antibody, Quant Hep B Core IgM Ab Hepatitis C Antibody HCV RNA (PCR) IUs/ml HCV RNA PCR log IUs/ml HSV I&II IgM Ab HIV 1&2 Antibody VZV IgG Antibody VZV IgG Ab Index VZV IgG,IgM Antibody 04/24/17 04/24/17 04/25/17 05:30 11:14 05:22 WBC RBC Hgb Hct Plt Count INR BUN 65 H 88 H Creatinine 4.6 H 6.7 H Total Bilirubin 1.2 Conjugated Bilirubin 0.6 H Unconjugated Bilirubin 0.6 AST 1979 H ALT 4959 H Alkaline Phosphatase 57 Udebw-0-Imhwzsrogam Ceruloplasmin Acetaminophen PAUL Screen Anti-Mitochondrial Ab Anti-Smooth Muscle Ab CMV IgM Ab EBV Capsid Ag IgG Ab EBV Capsid Ag IgM Ab EBV Early Antigen IgG EBV Nuclear Antigen Ab EBV Interpretation Hepatitis A IgM Ab Hepatitis A Ab Total Hep Bs Antigen Hep Bs Antibody Hep Bs Antibody, Quant Hep B Core IgM Ab Hepatitis C Antibody HCV RNA (PCR) IUs/ml HCV RNA PCR log IUs/ml HSV I&II IgM Ab HIV 1&2 Antibody NEGATIVE VZV IgG Antibody VZV IgG Ab Index VZV IgG,IgM Antibody 04/25/17 04/25/17 05:22 05:22 WBC 9.92 H RBC 3.87 L Hgb 12.1 L Hct 33.0 L Plt Count 77 L INR 1.36 H BUN Creatinine Total Bilirubin Conjugated Bilirubin Unconjugated Bilirubin AST ALT Alkaline Phosphatase Qsmqw-4-Mljbodsuxbp Ceruloplasmin Acetaminophen PAUL Screen Anti-Mitochondrial Ab Anti-Smooth Muscle Ab CMV IgM Ab EBV Capsid Ag IgG Ab EBV Capsid Ag IgM Ab EBV Early Antigen IgG EBV Nuclear Antigen Ab EBV Interpretation Hepatitis A IgM Ab Hepatitis A Ab Total Hep Bs Antigen Hep Bs Antibody Hep Bs Antibody, Quant Hep B Core IgM Ab Hepatitis C Antibody HCV RNA (PCR) IUs/ml HCV RNA PCR log IUs/ml HSV I&II IgM Ab HIV 1&2 Antibody VZV IgG Antibody VZV IgG Ab Index VZV IgG,IgM Antibody Laboratory Tests 04/23/17 04/23/17 04/23/17 09:38 09:38 12:07 WBC 14.61 H Hgb 12.6 L Hct 36.6 L INR 2.48 H BUN Creatinine Conjugated Bilirubin Unconjugated Bilirubin AST ALT Alkaline Phosphatase Tvrgu-5-Vslgvytvjmx Ceruloplasmin TSH Acetaminophen < 10 L PAUL Screen Anti-Mitochondrial Ab Anti-Smooth Muscle Ab CMV IgM Ab EBV Capsid Ag IgG Ab EBV Capsid Ag IgM Ab EBV Early Antigen IgG EBV Nuclear Antigen Ab EBV Interpretation Hepatitis A IgM Ab Hepatitis A Ab Total Hep Bs Antigen Hep Bs Antibody Hep Bs Antibody, Quant Hep B Core IgM Ab Hepatitis C Antibody HCV RNA (PCR) IUs/ml HCV RNA PCR log IUs/ml HSV I&II IgM Ab HIV 1&2 Antibody VZV IgG Antibody VZV IgG Ab Index VZV IgG,IgM Antibody 04/23/17 04/23/17 04/24/17 15:25 15:25 05:30 WBC 10.14 H Hgb 12.0 L Hct 34.3 L INR BUN Creatinine Conjugated Bilirubin Unconjugated Bilirubin AST ALT Alkaline Phosphatase Qnkia-5-Fpwazlazsnf Pending Ceruloplasmin Pending TSH Acetaminophen PAUL Screen Pending Anti-Mitochondrial Ab Pending Anti-Smooth Muscle Ab Pending CMV IgM Ab Pending EBV Capsid Ag IgG Ab Pending EBV Capsid Ag IgM Ab Pending EBV Early Antigen IgG Pending EBV Nuclear Antigen Ab Pending EBV Interpretation Pending Hepatitis A IgM Ab NEGATIVE Hepatitis A Ab Total NEGATIVE Hep Bs Antigen NEGATIVE Hep Bs Antibody Pending Hep Bs Antibody, Quant Pending Hep B Core IgM Ab NEGATIVE Hepatitis C Antibody NEGATIVE HCV RNA (PCR) IUs/ml Pending HCV RNA PCR log IUs/ml Pending HSV I&II IgM Ab Pending HIV 1&2 Antibody VZV IgG Antibody Pending VZV IgG Ab Index Pending VZV IgG,IgM Antibody Pending 04/24/17 04/24/17 04/24/17 05:30 05:30 05:30 WBC Hgb Hct INR 1.65 H BUN 60 H Creatinine 3.8 H D Conjugated Bilirubin 0.6 H Unconjugated Bilirubin 0.7 AST 5708 H ALT 7186 H Alkaline Phosphatase 41 Vrlre-8-Qwzyfwtnzum Ceruloplasmin TSH 0.863 Acetaminophen PAUL Screen Anti-Mitochondrial Ab Anti-Smooth Muscle Ab CMV IgM Ab EBV Capsid Ag IgG Ab EBV Capsid Ag IgM Ab EBV Early Antigen IgG EBV Nuclear Antigen Ab EBV Interpretation Hepatitis A IgM Ab Hepatitis A Ab Total Hep Bs Antigen Hep Bs Antibody Hep Bs Antibody, Quant Hep B Core IgM Ab Hepatitis C Antibody HCV RNA (PCR) IUs/ml HCV RNA PCR log IUs/ml HSV I&II IgM Ab HIV 1&2 Antibody NEGATIVE VZV IgG Antibody VZV IgG Ab Index VZV IgG,IgM Antibody 04/24/17 04/25/17 04/25/17 11:14 05:22 05:22 WBC 9.92 H Hgb 12.1 L Hct 33.0 L INR BUN 65 H 88 H Creatinine 4.6 H 6.7 H Conjugated Bilirubin 0.6 H Unconjugated Bilirubin AST ALT 4959 H Alkaline Phosphatase 57 Njdxa-0-Sxlrsyalibm Ceruloplasmin TSH Acetaminophen PAUL Screen Anti-Mitochondrial Ab Anti-Smooth Muscle Ab CMV IgM Ab EBV Capsid Ag IgG Ab EBV Capsid Ag IgM Ab EBV Early Antigen IgG EBV Nuclear Antigen Ab EBV Interpretation Hepatitis A IgM Ab Hepatitis A Ab Total Hep Bs Antigen Hep Bs Antibody Hep Bs Antibody, Quant Hep B Core IgM Ab Hepatitis C Antibody HCV RNA (PCR) IUs/ml HCV RNA PCR log IUs/ml HSV I&II IgM Ab HIV 1&2 Antibody VZV IgG Antibody VZV IgG Ab Index VZV IgG,IgM Antibody 04/25/17 05:22 WBC Hgb Hct INR 1.36 H BUN Creatinine Conjugated Bilirubin Unconjugated Bilirubin AST ALT Alkaline Phosphatase Hilhj-6-Aoqefxfvarr Ceruloplasmin TSH Acetaminophen PAUL Screen Anti-Mitochondrial Ab Anti-Smooth Muscle Ab CMV IgM Ab EBV Capsid Ag IgG Ab EBV Capsid Ag IgM Ab EBV Early Antigen IgG EBV Nuclear Antigen Ab EBV Interpretation Hepatitis A IgM Ab Hepatitis A Ab Total Hep Bs Antigen Hep Bs Antibody Hep Bs Antibody, Quant Hep B Core IgM Ab Hepatitis C Antibody HCV RNA (PCR) IUs/ml HCV RNA PCR log IUs/ml HSV I&II IgM Ab HIV 1&2 Antibody VZV IgG Antibody VZV IgG Ab Index VZV IgG,IgM Antibody Physical Exam - Physical Exam General Appearance: alert EENT: PERRL/EOMI Respiratory: lungs clear, normal breath sounds Cardiac/Chest: normal peripheral pulses Abdomen: normal bowel sounds, non-tender, soft Skin: normal color, No jaundice Extremities: normal range of motion Neuro/Psych: no motor/sensory deficits ICD10 Worksheet Patient Problems: Problems Problem Status Onset Acute respiratory failure Acute Chest pain Acute Elevated troponin Acute Hepatitis Acute Liver failure, acute Acute Lumbar disc herniation with radiculopathy Acute
[2017-04-25] MEDS ORDERED: HEPARIN 50,000 UNIT/10 ML VIAL ONE ×2 (10:30→15:54)
--- NOTE | 2017-04-25 11:07 | SOAPPROG ---
JASPREET Progress Note Assessment/Plan: Assessment:Plan: ARF-likely ATN (N17.0) -oliguric now -creatinine rising -azotemic and symptomatic -plan for Hd today -Hd again tomorrow -he had normal baseline in March of 0.8, so he should have complete recovery Access-for temp Hd catheter today -discussed with IR Dispo-pending -suspect his acute kidney injury will resolve prior to discharge -if he needs outpatient acute dialysis I would try to arrange the [facility] [phone] -this would provide continuity of care and the supervision needed to manage this complex issue -he could do rehab at [facility] or some other nearby facility -he has met his out of pocket expenses for the year with his back procedure -his understands that he currently is out of Network with [employer] due to contract issues we are having with [employer], but that because he has met his limit this would not result in any additional costs to him or his family to use those out of network benefits the remainder of the year 04/25/17 11:08 Subjective: somnolent Objective: Vital Signs Temp Pulse Resp BP Pulse Ox 37.2 C 99 16 150/81 H 96 04/25/17 08:00 04/25/17 08:00 04/25/17 08:00 04/25/17 08:00 04/25/17 08:00 Laboratory Results 04/25/17 05:22 04/25/17 05:22 04/24/17 04/25/17 04/26/17 05:59 05:59 05:59 Intake Total 3840 1191 Output Total 1110 200 Balance 2730 991 PT 16.8 SEC (12.0-15.0) H 04/25/17 05:22 INR 1.36 (0.83-1.16) H 04/25/17 05:22 Physical Exam - Physical Exam General Appearance: WD/WN, no apparent distress, obese, No alert EENT: normal ENT inspection Neck: normal inspection Respiratory: decreased breath sounds, No respiratory distress Cardiac/Chest: regular rate, rhythm, No diastolic murmur, No systolic murmur Abdomen: normal bowel sounds, non-tender, soft, No organomegaly, No hepatomegaly , No splenomegaly Skin: normal color, warm/dry, No cyanosis Extremities: swelling Neuro/Psych: other (lethargic, sleepy, arouses to voice), No alert ICD10 Worksheet Patient Problems: Problems Problem Status Onset Acute respiratory failure Acute Chest pain Acute Elevated troponin Acute Hepatitis Acute Liver failure, acute Acute Lumbar disc herniation with radiculopathy Acute
[2017-04-25] MEDS ORDERED: ALBUTEROL 60 PUFFS/8 GM MDI IH PRN (15:41)
[2017-04-25] MEDS ORDERED: ALBUTEROL 3 ML DEYVIAL IH ONE (16:00)
[2017-04-25 16:33] LABS: ANTINUCLEAR ANTIBODIES SCREEN 0.15 UNITS (<=1.00)
--- NOTE | 2017-04-25 17:46 | HOSPPROG ---
Hospitalist Progress Note Assessment/Plan: * ARF due to ATN - hypotension + narcotics + poor PO -d/w Dr. Smith - start acute dialysis today * Suspect shock liver -LFT and INR improving * s/p lumbar fusion -Dr. Price following * Pleuritic CP/SOB -PE ruled out with negative V/Q, LE US and ECHO * Non-STEMI -suspect troponin elevation due to hypotension -no cath now due to ARF -consider stress testing prior to discharge Subjective: No new complaints Objective: Vital Signs Temp Pulse Resp BP Pulse Ox 36.4 C 94 14 160/120 H 95 04/25/17 15:40 04/25/17 16:26 04/25/17 15:50 04/25/17 16:26 04/25/17 15:50 Laboratory Results 04/25/17 05:22 04/25/17 05:22 04/24/17 04/25/17 04/26/17 05:59 05:59 05:59 Intake Total 3840 1191 Output Total 1110 200 Balance 2730 991 PT 16.8 SEC (12.0-15.0) H 04/25/17 05:22 INR 1.36 (0.83-1.16) H 04/25/17 05:22 - Physical Exam Constitutional: no apparent distress, appears nourished, not in pain Cardiovascular: regular rate and rhythym, no murmur, rub, or gallop, edema Respiratory: no respiratory distress, no rales or rhonchi, clear to auscultation Gastrointestinal: normoactive bowel sounds, soft, non-tender abdomen, no palpable masses Skin: no rashes or abrasions, no fluctuance, no induration Neurologic: AAOx3, sensation intact bilaterally Psychiatric: interacting appropriately, not anxious, not encephalopathic, thought process linear ICD10 Worksheet Patient Problems: Problems Problem Status Onset Acute respiratory failure Acute Chest pain Acute Elevated troponin Acute Hepatitis Acute Liver failure, acute Acute Lumbar disc herniation with radiculopathy Acute
[2017-04-25] MEDS: oxyCODONE IR 5 MG TAB PO PRN (23:06)
[2017-04-26 05:29] LABS: % IMMATURE GRANULYOCYTES 0.6 % (0.0-1.1); ABSOLUTE IMMATURE GRANULOCYTES 0.06 10^3/uL (0.00-0.10); ADD DIFF? NO; ADD MORPH? NO; ADD SCAN? NO; ATYPICAL LYMPHOCYTE FLAG 10 (0-99); FRAGMENT RBC FLAG 0 (0-99); HEMATOCRIT 35.6 % (40.0-51.0); HEMOGLOBIN 12.6 g/dL (13.7-17.5); LEFT SHIFT FLG 0 (0-99); LIPEMIA HEMOLYSIS FLAG 90 (0-99); MEAN CELL HEMOGLOBIN 30.7 pg (27.9-34.1); MEAN CELL HEMOGLOBIN CONCENTR. 35.4 g/dL (32.4-36.7); MEAN CELL VOLUME 86.6 fL (81.5-99.8); MEAN PLATELET VOLUME 9.1 fL (8.7-11.7); PLATELET CLUMPS FLAG 20 (0-99); PLATELET COUNT 119 10^3/uL (150-400); RED BLOOD CELL COUNT 4.11 10^6/uL (4.40-6.38); RED CELL DISTRIBUTION WIDTH 12.9 % (11.5-15.2)
[2017-04-26 05:41] LABS: ALBUMIN 3.1 g/dL (3.5-5.0); ALKALINE PHOSPHATASE 66 IU/L (38-126); ANION GAP 14 mEq/L (8-16); ASPARTATE AMINOTRANSFERASE 697 IU/L (17-59); BILIRUBIN,TOTAL 1.4 mg/dL (0.1-1.4); BILIRUBIN-CONJUGATED 0.6 mg/dL (0.0-0.5); BILIRUBIN-UNCONJUGATED 0.8 mg/dL (0.0-1.1); CARBON DIOXIDE 23 mEq/l (22-31); CHLORIDE 97 mEq/L (97-110); CREATININE 7.5 mg/dL (0.7-1.3); GLOMERULAR FILTRATION RATE 8; GLUCOSE 93 mg/dL (70-100); MAGNESIUM 2.7 mg/dL (1.6-2.3); POTASSIUM 4.5 mEq/L (3.5-5.2); SODIUM 134 mEq/L (134-144); TOTAL PROTEIN 5.6 g/dL (6.3-8.2)
[2017-04-26 07:24] LABS: ALANINE AMINOTRANSFERASE 3621 IU/L (21-72)
[2017-04-26] MEDS: MONTELUKAST SODIUM 10 MG TAB PO SCH (10:19)
[2017-04-26] MEDS: PROPRANOLOL HCL 20 MG TAB PO SCH (10:19)
[2017-04-26] MEDS: PANTOPRAZOLE SODIUM 40 MG TAB PO SCH (10:20)
[2017-04-26] MEDS: oxyCODONE IR 5 MG TAB PO PRN ×3 (10:34→22:02)
--- NOTE | 2017-04-26 14:05 | SOAPPROG ---
SOAP Progress Note Assessment/Plan: Assessment: 1. arf due to ischemic atn: remains oliguric, dialysis-dependent. For 2nd hd today, will tentatively plan next treatment for Monday. No evidence of renal recovery yet, but creat was normal 04/13 therefore expect recovery shortly. 2. shock liver: resolving 3. htn: will uf on hd 4. AMS: per is improved today. ?ischemic brain injury +/- uremia, liver failure, etc. 5. anemia/thrombocytopenia: improving Plan: 04/26/17 14:02 Subjective: Up in chair, per this is the longest he has stayed awake in days. S/p uneventful 1st hd yesterday. Objective: Vital Signs Temp Pulse Resp BP Pulse Ox 36.5 C 94 12 154/98 H 96 04/26/17 08:00 04/26/17 10:19 04/26/17 08:00 04/26/17 10:19 04/26/17 08:00 Laboratory Results 04/26/17 05:00 04/26/17 05:00 04/25/17 04/26/17 04/27/17 05:59 05:59 05:59 Intake Total 1191 250 Output Total 200 75 Balance 991 175 PT 16.8 SEC (12.0-15.0) H 04/25/17 05:22 INR 1.36 (0.83-1.16) H 04/25/17 05:22 Physical Exam - Physical Exam General Appearance: no apparent distress Respiratory: decreased breath sounds (at bases) Cardiac/Chest: regular rate, rhythm Abdomen: non-tender, soft Extremities: pedal edema ICD10 Worksheet Patient Problems: Problems Problem Status Onset Acute respiratory failure Acute Chest pain Acute Elevated troponin Acute Hepatitis Acute Liver failure, acute Acute Lumbar disc herniation with radiculopathy Acute
[2017-04-26 14:13] LABS: HEPATITIS Bs Ab QUANT <5.0 mIU/mL
[2017-04-26 14:32] LABS: ANTI EBNA Positive (Negative); ANTI VCA/IgG Positive (Negative); ANTI VCA/IgM Negative (Negative); EBV IGG EARLY ANTIGEN Negative (Negative)
--- NOTE | 2017-04-26 16:47 | HOSPPROG ---
Hospitalist Progress Note Assessment/Plan: * ARF due to ATN - hypotension + narcotics + poor PO -oliguric -currently dialysis dependent. Getting dialysis today * Shock liver -LFT and INR improving -cont to check daily * s/p lumbar fusion -Dr. Price following * Pleuritic CP/SOB -PE ruled out with negative V/Q, LE US and ECHO * Non-STEMI -suspect troponin elevation due to hypotension -no cath now due to ARF -consider stress testing prior to discharge * Encephalopathy: improving # Anemia and thrombocytopenia Plan: no changes today Continue with current mgmt including dialysis Serial labs First encounter with this patient. Subjective: Seen at dialysis. Pts at bedside. Somewhat confused. No CP or SOB. Objective: Vital Signs Temp Pulse Resp BP Pulse Ox 36.5 C 94 12 154/98 H 96 04/26/17 08:00 04/26/17 10:19 04/26/17 08:00 04/26/17 10:19 04/26/17 08:00 Laboratory Results 04/26/17 05:00 04/26/17 05:00 04/25/17 04/26/17 04/27/17 05:59 05:59 05:59 Intake Total 1191 250 Output Total 200 75 Balance 991 175 PT 16.8 SEC (12.0-15.0) H 04/25/17 05:22 INR 1.36 (0.83-1.16) H 04/25/17 05:22 - Physical Exam Constitutional: no apparent distress Eyes: PERRL, EOMI Ears, Nose, Mouth, Throat: moist mucous membranes Cardiovascular: regular rate and rhythym, edema (trace) Respiratory: reduced air movement Gastrointestinal: normoactive bowel sounds, soft, non-tender abdomen Skin: warm Neurologic: AAOx3, No facial droop Psychiatric: encephalopathic ICD10 Worksheet Patient Problems: Problems Problem Status Onset Acute respiratory failure Acute Chest pain Acute Elevated troponin Acute Hepatitis Acute Liver failure, acute Acute Lumbar disc herniation with radiculopathy Acute
[2017-04-26] MEDS ORDERED: HEPARIN 50,000 UNIT/10 ML VIAL ONE (19:12)
[2017-04-26 19:26] LABS: ALPHA-1-ANTITRYPSIN SERUM 207 mg/dL (100 - 190)
[2017-04-26 20:39] LABS: HSV 1/2 IGM AB Negative (Negative)
[2017-04-26 22:00] LABS: VARICELLA ZOSTER IGG Equivocal; VARICELLA ZOSTER IGM Negative (Negative)
[2017-04-26] MEDS ORDERED: BACLOFEN 10 MG TAB PO ONE (22:21)
[2017-04-27 05:25] LABS: % IMMATURE GRANULYOCYTES 0.8 % (0.0-1.1); ABSOLUTE IMMATURE GRANULOCYTES 0.07 10^3/uL (0.00-0.10); ADD DIFF? NO; ADD MORPH? NO; ADD SCAN? NO; ATYPICAL LYMPHOCYTE FLAG 10 (0-99); FRAGMENT RBC FLAG 0 (0-99); HEMATOCRIT 34.4 % (40.0-51.0); HEMOGLOBIN 12.4 g/dL (13.7-17.5); LEFT SHIFT FLG 0 (0-99); LIPEMIA HEMOLYSIS FLAG 90 (0-99); MEAN CELL HEMOGLOBIN 30.9 pg (27.9-34.1); MEAN CELL VOLUME 85.8 fL (81.5-99.8); MEAN PLATELET VOLUME 9.3 fL (8.7-11.7); PLATELET CLUMPS FLAG 10 (0-99); PLATELET COUNT 122 10^3/uL (150-400); RED BLOOD CELL COUNT 4.01 10^6/uL (4.40-6.38); RED CELL DISTRIBUTION WIDTH 12.9 % (11.5-15.2)
[2017-04-27] MEDS: oxyCODONE IR 5 MG TAB PO PRN ×3 (05:30→17:06)
[2017-04-27 05:45] LABS: ALBUMIN 3.1 g/dL (3.5-5.0); ALKALINE PHOSPHATASE 69 IU/L (38-126); ANION GAP 15 mEq/L (8-16); ASPARTATE AMINOTRANSFERASE 225 IU/L (17-59); BILIRUBIN,TOTAL 1.1 mg/dL (0.1-1.4); CALCIUM 8.7 mg/dL (8.5-10.4); CARBON DIOXIDE 22 mEq/l (22-31); CHLORIDE 97 mEq/L (97-110); GLOMERULAR FILTRATION RATE 7; GLUCOSE 106 mg/dL (70-100); MAGNESIUM 2.5 mg/dL (1.6-2.3); POTASSIUM 4.2 mEq/L (3.5-5.2); SODIUM 134 mEq/L (134-144); TOTAL PROTEIN 5.4 g/dL (6.3-8.2)
[2017-04-27 05:52] LABS: CREATININE 7.9 mg/dL (0.7-1.3)
[2017-04-27 06:02] LABS: INR 1.15 (0.83-1.16); PROTIME(PATIENT) 14.7 SEC (12.0-15.0)
[2017-04-27 06:10] LABS: ALANINE AMINOTRANSFERASE 2369 IU/L (21-72)
[2017-04-27] MEDS: PANTOPRAZOLE SODIUM 40 MG TAB PO SCH (08:22)
[2017-04-27 09:53] LABS: SMOOTH MUSCLE ANTIBODIES SERUM Negative (Negative)
--- NOTE | 2017-04-27 10:01 | SOAPPROG ---
JASPREET Progress Note Assessment/Plan: Assessment:Plan: ARF-likely ATN (N17.0) -oliguric now -creatinine still up -azotemic and symptomatic -plan for Hd again today -Hd again Monday -he had normal baseline in March of 0.8, so he should have complete recovery -patient with family history of kidney issues, dailysis. -he is scared about his current medical condition Access-temp Hd catheter -good function Anxiety-describes last night -anxiety -restlessness -medications reviewed -will stop phenergan even though he did not get dosed with this last night ) risk of akathisia -low dose lorazepam ordered Dispo-pending 04/27/17 09:56 Subjective: describes restlessness, anxiety and delusions last night Objective: Vital Signs Temp Pulse Resp BP Pulse Ox 36.6 C 87 16 156/121 H 95 04/27/17 08:00 04/27/17 08:00 04/27/17 08:00 04/27/17 08:00 04/27/17 08:00 Laboratory Results 04/27/17 04:56 04/27/17 04:56 04/26/17 04/27/17 04/28/17 05:59 05:59 05:59 Intake Total 250 550 Output Total 75 20 Balance 175 530 PT 14.7 SEC (12.0-15.0) 04/27/17 04:56 INR 1.15 (0.83-1.16) 04/27/17 04:56 Physical Exam - Physical Exam General Appearance: alert, mild distress EENT: normal ENT inspection Neck: normal inspection Respiratory: lungs clear, normal breath sounds, No respiratory distress Cardiac/Chest: regular rate, rhythm, No diastolic murmur, No systolic murmur Abdomen: normal bowel sounds, non-tender, soft, distended Skin: normal color Extremities: swelling Neuro/Psych: no motor/sensory deficits, alert, normal mood/affect ICD10 Worksheet Patient Problems: Problems Problem Status Onset Lumbar disc herniation with radiculopathy Acute Chest pain Acute Elevated troponin Acute Hepatitis Acute Acute respiratory failure Acute Liver failure, acute Acute
[2017-04-27] MEDS: LORazepam 0.5 MG TAB PO PRN (12:16)
[2017-04-27 14:10] LABS: HCV QT RNA PCR < 1 IU/mL (<15)
--- NOTE | 2017-04-27 14:59 | HOSPPROG ---
Hospitalist Progress Note Objective: Vital Signs Temp Pulse Resp BP Pulse Ox 36.6 C 87 16 156/121 H 95 04/27/17 08:00 04/27/17 08:00 04/27/17 08:00 04/27/17 08:00 04/27/17 08:00 Laboratory Results 04/27/17 04:56 04/27/17 04:56 04/26/17 04/27/17 04/28/17 05:59 05:59 05:59 Intake Total 250 550 Output Total 75 20 150 Balance 175 530 -150 PT 14.7 SEC (12.0-15.0) 04/27/17 04:56 INR 1.15 (0.83-1.16) 04/27/17 04:56 Selected Entries 04/25/17 04/26/17 04/26/17 23:00 08:00 10:19 Blood Pressure 158/100 H 154/98 H 154/98 H 04/27/17 08:00 Blood Pressure 156/121 H Laboratory Tests 04/23/17 04/23/17 04/24/17 12:07 12:07 00:40 INR 2.48 H VBG Lactic Acid 2.7 H 1.1 D Magnesium 04/24/17 04/25/17 04/27/17 05:30 05:22 04:56 INR 1.65 H 1.36 H VBG Lactic Acid Magnesium 2.5 H 04/27/17 04:56 INR 1.15 VBG Lactic Acid Magnesium ICD10 Worksheet Patient Problems: Problems Problem Status Onset Lumbar disc herniation with radiculopathy Acute Chest pain Acute Elevated troponin Acute Hepatitis Acute Acute respiratory failure Acute Liver failure, acute Acute
--- NOTE | 2017-04-27 15:35 | HOSPPROG ---
Hospitalist Progress Note Assessment/Plan: 55-year-old male admitted with chest pain hypertension, tachycardia, elevated lactate, and leukocytosis. He was felt to have been hypotension of before resuscitation secondary to the use of narcotics and poor p.o. intake. Presentation with sepsis POA. Patient new to me today. -sepsis POA now resolved. -ARF due to ATN - hypotension + narcotics + poor PO -oliguric -currently dialysis dependent. Getting dialysis today -Shock liver -LFT and INR improving -cont to check daily - s/p lumbar fusion -Dr. Price following -Pleuritic CP/SOB -PE ruled out with negative V/Q, LE US and ECHO -Non-STEMI -suspect troponin elevation due to hypotension -no cath now due to ARF -consider stress testing prior to discharge - Encephalopathy: improving -Anemia and thrombocytopenia Plan: Dialysis on 04/27 Objective: Vital Signs Temp Pulse Resp BP Pulse Ox 36.6 C 87 16 156/121 H 95 04/27/17 08:00 04/27/17 08:00 04/27/17 08:00 04/27/17 08:00 04/27/17 08:00 Laboratory Results 04/27/17 04:56 04/27/17 04:56 04/26/17 04/27/17 04/28/17 05:59 05:59 05:59 Intake Total 250 550 Output Total 75 20 150 Balance 175 530 -150 PT 14.7 SEC (12.0-15.0) 04/27/17 04:56 INR 1.15 (0.83-1.16) 04/27/17 04:56 - Time Spent With Patient Time Spent with Patient: greater than 35 minutes Time Spent with Patient: Greater than 35 minutes spent on this patients care, greater than 50% of time spent counseling, educating, and coordinating care regarding the above mentioned plan. - Pending Discharge Pending Discharge Within 24 Hours: No Pending Discharge Within 48 Hours: Yes Pending Discharge Date: 04/30/17 Pending Discharge Time: 11:00 - Physical Exam Constitutional: no apparent distress, chronically ill appearing Eyes: PERRL, anicteric sclera Ears, Nose, Mouth, Throat: moist mucous membranes Cardiovascular: regular rate and rhythym, no murmur, rub, or gallop Respiratory: no respiratory distress, no rales or rhonchi, clear to auscultation Gastrointestinal: normoactive bowel sounds, tenderness, distension Genitourinary: no bladder fullness Skin: warm Musculoskeletal: generalized weakness Neurologic: AAOx3, CN II-XII Intact Psychiatric: interacting appropriately ICD10 Worksheet Patient Problems: Problems Problem Status Onset Lumbar disc herniation with radiculopathy Acute Chest pain Acute Elevated troponin Acute Hepatitis Acute Acute respiratory failure Acute Liver failure, acute Acute
[2017-04-27] MEDS ORDERED: HEPARIN 50,000 UNIT/10 ML VIAL ONE (17:23)
[2017-04-27] MEDS ORDERED: DIAZEPAM 5 MG TAB PO PRN (17:41)
[2017-04-27] MEDS ORDERED: NON-FORMULARY NEW DRUG (Losartan Potassium [Cozaar] 100 MG) PO SCH (17:45)
[2017-04-27] MEDS ORDERED: ZOLPIDEM TARTRATE 5 MG TAB PO PRN (18:43)
[2017-04-27] MEDS: TAMSULOSIN HCL 0.4 MG CAP PO SCH (19:40)
[2017-04-27] MEDS ORDERED: CIPROFLOXACIN 500 MG TAB PO SCH (21:00)
[2017-04-27] MEDS: BACLOFEN 10 MG TAB PO SCH (21:57)
[2017-04-28] MEDS: LORazepam 0.5 MG TAB PO PRN (04:31)
[2017-04-28 05:15] LABS: % IMMATURE GRANULYOCYTES 0.9 % (0.0-1.1); ABSOLUTE IMMATURE GRANULOCYTES 0.07 10^3/uL (0.00-0.10); ADD DIFF? NO; ADD MORPH? NO; ADD SCAN? NO; ATYPICAL LYMPHOCYTE FLAG 10 (0-99); FRAGMENT RBC FLAG 0 (0-99); HEMOGLOBIN 11.6 g/dL (13.7-17.5); LEFT SHIFT FLG 0 (0-99); LIPEMIA HEMOLYSIS FLAG 90 (0-99); MEAN CELL HEMOGLOBIN 31.1 pg (27.9-34.1); MEAN CELL HEMOGLOBIN CONCENTR. 36.3 g/dL (32.4-36.7); MEAN CELL VOLUME 85.8 fL (81.5-99.8); PLATELET CLUMPS FLAG 20 (0-99); PLATELET COUNT 117 10^3/uL (150-400); RED BLOOD CELL COUNT 3.73 10^6/uL (4.40-6.38); RED CELL DISTRIBUTION WIDTH 12.6 % (11.5-15.2)
[2017-04-28 05:27] LABS: ALBUMIN 2.8 g/dL (3.5-5.0); ALKALINE PHOSPHATASE 65 IU/L (38-126); ANION GAP 12 mEq/L (8-16); ASPARTATE AMINOTRANSFERASE 114 IU/L (17-59); BILIRUBIN,TOTAL 0.9 mg/dL (0.1-1.4); CALCIUM 8.7 mg/dL (8.5-10.4); CARBON DIOXIDE 23 mEq/l (22-31); CHLORIDE 97 mEq/L (97-110); GLOMERULAR FILTRATION RATE 7; GLUCOSE 117 mg/dL (70-100); LACTATE DEHYDROGENASE 776 IU/L (313-618); MAGNESIUM 2.4 mg/dL (1.6-2.3); POTASSIUM 3.9 mEq/L (3.5-5.2); SODIUM 132 mEq/L (134-144); TOTAL PROTEIN 5.2 g/dL (6.3-8.2)
[2017-04-28 05:42] LABS: ALANINE AMINOTRANSFERASE 1407 IU/L (21-72)
[2017-04-28 05:45] LABS: CREATININE 8.2 mg/dL (0.7-1.3)
[2017-04-28] MEDS: LOSARTAN POTASSIUM 50 MG TAB PO SCH (09:10)
[2017-04-28] MEDS: TAMSULOSIN HCL 0.4 MG CAP PO SCH (09:10)
[2017-04-28] MEDS: BACLOFEN 10 MG TAB PO SCH ×3 (09:11→20:56)
[2017-04-28] MEDS: PANTOPRAZOLE SODIUM 40 MG TAB PO SCH (09:11)
--- NOTE | 2017-04-28 14:12 | SOAPPROG ---
SOAP Progress Note Assessment/Plan: Assessment/Plan: POONAM: likely ATN, oliguric but may be starting to make more urine, Cr still uptrending and BUN still high despite dialysis 3 days in a row. - Will plan for HD again on Monday. - Will continue to monitor for recovery. - Avoid hypotension and nephrotoxins. Hyponatremia: Na 132, will modulate on HD. URIEL: Phos 7.2, will start phos binder and continue to monitor daily. Anemia: Hgb 11.6, no need for epo, will continue to monitor. Subjective: No acute events overnight. Pt states he is feeling better, in a better place mentally now that he understands what is going on better. He has trouble with deep breaths but otherwise breathing comfortably, no pain, no swelling. Objective: Vital Signs Temp Pulse Resp BP Pulse Ox 36.8 C 111 H 18 119/82 H 91 L 04/28/17 12:10 04/28/17 12:10 04/28/17 12:10 04/28/17 12:10 04/28/17 12:10 Laboratory Results 04/28/17 04:57 04/28/17 04:57 04/27/17 04/28/17 04/29/17 05:59 05:59 05:59 Intake Total 550 450 Output Total 20 275 Balance 530 175 PT 14.7 SEC (12.0-15.0) 04/27/17 04:56 INR 1.15 (0.83-1.16) 04/27/17 04:56 General: alert and oriented, no acute distress Eyes; EOMI, PERRL OP: Clear CV: RRR Resp: nonlabored respirations on NC Abd; SOft, NT Ext: no edema BLE Neuro: CN II-XII grossly intact, no asterixis Psych; cooperative, appropriate mood and affect Access: RIJ temp cath ICD10 Worksheet Patient Problems: Problems Problem Status Onset Acute respiratory failure Acute Chest pain Acute Elevated troponin Acute Hepatitis Acute Liver failure, acute Acute Lumbar disc herniation with radiculopathy Acute
[2017-04-28] MEDS: CALCIUM ACETATE 667 MG CAP PO SCH ×2 (15:57→19:17)
--- NOTE | 2017-04-28 16:09 | HOSPPROG ---
Hospitalist Progress Note Assessment/Plan: 55-year-old male admitted with chest pain hypertension, tachycardia, elevated lactate, and leukocytosis. He was felt to have been hypotension before resuscitation secondary to the use of narcotics and poor p.o. intake. Presentation with sepsis POA. Today he is feeling improved. She is having some difficulty with urination or doing bladder scan p.r.n.. -sepsis POA now resolved. -ARF due to ATN - hypotension + narcotics + poor PO -oliguric -currently dialysis dependent. Getting dialysis on 03/29 and followed by nephrology. - Phosphate is I will be placed on phosphate binders. - For reasons that are unclear his creatinine and BUN have not fallen with dialysis but will be followed again post dialysis. -Shock liver -LFT and INR improving -cont to check daily - s/p lumbar fusion -Dr. Price following - Pain currently in good control with a fentanyl patch. -Pleuritic CP/SOB -PE ruled out with negative V/Q, LE US and ECHO -Non-STEMI -suspect troponin elevation due to hypotension -no cath now due to ARF -consider stress testing prior to discharge - Encephalopathy: improving; Now resolved -Anemia and thrombocytopenia; resolving Plan: Dialysis on 04/29; disposition to SNF, pre for believe the [place] [facility]. Case discussed with Nephrology, Dr. Maggie Blanco. time 45 minutes Subjective: reports he is feeling improved but continues to feel weak and have significant back pain. Objective: Vital Signs Temp Pulse Resp BP Pulse Ox 36.8 C 111 H 18 119/82 H 91 L 04/28/17 12:10 04/28/17 12:10 04/28/17 12:10 04/28/17 12:10 04/28/17 12:10 Microbiology 04/23/17 12:38 Blood Culture - Final Blood 04/23/17 12:07 Blood Culture - Final Blood Laboratory Results 04/28/17 04:57 04/28/17 04:57 04/27/17 04/28/17 04/29/17 05:59 05:59 05:59 Intake Total 550 450 Output Total 20 275 Balance 530 175 PT 14.7 SEC (12.0-15.0) 04/27/17 04:56 INR 1.15 (0.83-1.16) 04/27/17 04:56 Laboratory Tests 04/23/17 04/24/17 04/25/17 12:07 05:30 05:22 WBC 10.14 H Hgb 12.0 L Plt Count 55 L PT 27.1 H AST 1979 H ALT 4959 H 04/27/17 04/28/17 04/28/17 04:56 04:57 04:57 WBC 8.02 Hgb 11.6 L Plt Count 117 L PT 14.7 AST 114 H ALT 1407 H - Pending Discharge Pending Discharge Within 24 Hours: No Pending Discharge Within 48 Hours: Yes Pending Discharge Date: 04/30/17 Pending Discharge Time: 11:00 - Physical Exam Constitutional: no apparent distress, other ( Ill-appearing and weak) Eyes: PERRL, anicteric sclera Ears, Nose, Mouth, Throat: moist mucous membranes, hearing normal Cardiovascular: regular rate and rhythym, systolic murmur, other ( right IJ dialysis catheter in place and functioning well without signs of infection or inflammation.) Respiratory: no respiratory distress, no rales or rhonchi, clear to auscultation Gastrointestinal: normoactive bowel sounds, soft, non-tender abdomen, no palpable masses Genitourinary: no bladder fullness Skin: warm, other ( Ecchymosis noted along the volar surface of the left forearm probably secondary to her prior IV site) Musculoskeletal: generalized weakness Neurologic: AAOx3, CN II-XII Intact Psychiatric: interacting appropriately ICD10 Worksheet Patient Problems: Problems Problem Status Onset Lumbar disc herniation with radiculopathy Acute Chest pain Acute Elevated troponin Acute Hepatitis Acute Acute respiratory failure Acute Liver failure, acute Acute
[2017-04-28] MEDS ORDERED: fentaNYL 25 MCG PATCH TD SCH (16:15)
[2017-04-28] MEDS ORDERED: MAGNESIUM HYDROXIDE 30 ML UDCUP PO PRN (17:20)
[2017-04-28] MEDS ORDERED: BISACODYL 10 MG SUPP PR PRN (17:20)
[2017-04-28] MEDS ORDERED: POLYETHYLENE GLYCOL 3350 17 GM PKT PO PRN (17:20)
[2017-04-28] MEDS ORDERED: LACTULOSE 20 GM/30 ML UDCUP PO PRN (17:20)
[2017-04-28] MEDS: SENNOSIDES/DOCUSATE SODIUM TAB PO SCH (20:56)
[2017-04-29 07:40] LABS: ALBUMIN 3.1 g/dL (3.5-5.0); ANION GAP 17 mEq/L (8-16); CALCIUM 8.9 mg/dL (8.5-10.4); CARBON DIOXIDE 20 mEq/l (22-31); CHLORIDE 97 mEq/L (97-110); GLOMERULAR FILTRATION RATE 5; GLUCOSE 89 mg/dL (70-100); MAGNESIUM 2.5 mg/dL (1.6-2.3); SODIUM 134 mEq/L (134-144)
[2017-04-29 07:56] LABS: CREATININE 10.4 mg/dL (0.7-1.3)
--- NOTE | 2017-04-29 10:21 | SOAPPROG ---
SOAP Progress Note Assessment/Plan: Assessment/Plan: POONAM: likely ATN, oliguric but may be starting to make more urine, Cr still uptrending and BUN still high, concerning that his dialysis has not been adequate. He is very confused today, possibly uremic although medications and delirium may also be contributing. - Will do HD today, plan for longer treatment. - Will do HD again tomorrow. - Will continue to monitor for recovery. - Avoid hypotension and nephrotoxins. AMS: pt somnolent and confused today, different from yesterday. This could be uremia, although some medications may be contributing. - Will do HD as above. - I have discussed with hospitalist about concerning medications to review. URIEL: Phos 9.3, will increase phos binder and continue to monitor daily. Anemia: Hgb 11.6, no need for epo, will continue to monitor. Subjective: No acute events overnight. This am, pt is more confused, somnolent, not answering questions appropriately, still arousable. Objective: Vital Signs Temp Pulse Resp BP Pulse Ox 36.7 C 83 18 162/87 H 95 04/29/17 00:00 04/29/17 06:05 04/29/17 06:05 04/29/17 06:05 04/29/17 06:05 Microbiology 04/23/17 12:38 Blood Culture - Final Blood 04/23/17 12:07 Blood Culture - Final Blood Laboratory Results 04/28/17 04:57 04/29/17 07:01 04/28/17 04/29/17 04/30/17 05:59 05:59 05:59 Intake Total 450 200 Output Total 275 650 Balance 175 -450 PT 14.7 SEC (12.0-15.0) 04/27/17 04:56 INR 1.15 (0.83-1.16) 04/27/17 04:56 General: somnolent but arousable, no acute distress Eyes; EOMI, PERRL OP: Clear CV: RRR Resp: nonlabored respirations on O2 Abd: Soft, NT Ext: trace edema BLE Neuro: somnolent but arousable, confused Access: RIJ temp cath ICD10 Worksheet Patient Problems: Problems Problem Status Onset Acute respiratory failure Acute Chest pain Acute Elevated troponin Acute Hepatitis Acute Liver failure, acute Acute Lumbar disc herniation with radiculopathy Acute
[2017-04-29] MEDS: CALCIUM ACETATE 667 MG CAP PO SCH ×3 (12:33→17:38)
[2017-04-29] MEDS ORDERED: HYDROmorphONE/DILAUDID 1 MG/ML INJ IVP PRN (14:02)
--- NOTE | 2017-04-29 14:22 | HOSPPROG ---
Hospitalist Progress Note Assessment/Plan: 56-year-old man with recent fusion by Dr. Price is admitted for discharge with symptoms of weakness and shortness of breath. He was found to be hypotensive and hypoxic. He had multiple abnormalities including renal failure , hepatitis and altered mental status. Reviewed GI and Nephrology evaluation. It was felt that he likely had hypotension and hypoxia due to narcotic overuse with subsequent ATN and renal failure as well as acute hepatitis. He was doing better the last 2 days however has been much more somnolent today for unclear reasons. # acute encephalopathy, I suspect this may be medication related. * Minimize all centrally acting medications * Check ABG to rule out CO2 retention * Check CT scan of head * Supportive care # acute renal failure, unknown etiology although suspicion high for ATN due to hypotension. Discussed with Nephrology. * Continue dialysis * Continue electrolyte management per Nephrology * Slight improvement in urine output today # shock liver: Slow improvement with enzymes will continue to monitor. # pleuritic chest pain, V/Q scan negative, Dopplers negative. Echo does show mild right pulmonary hypertension, I suspect he has sleep apnea. # elevated troponins likely secondary to cardiac strain from hypotension. Will consider outpatient workup. # status post lumbar fusion, pain control difficult with oxycodone, and patient very sensitive to that medicine. Fentanyl patch tried yesterday but he is quite sedated today will discontinue that. Will do trial of tramadol as needed when patient becomes more alert. # anemia # thrombocytopenia Subjective: Patient new to me and chart review. Patient quite somnolent opens his eyes but go falls probably back to sleep Objective: Vital Signs Temp Pulse Resp BP Pulse Ox 36.6 C 84 16 153/103 H 96 04/29/17 13:12 04/29/17 13:12 04/29/17 13:12 04/29/17 13:12 04/29/17 13:12 Microbiology 04/23/17 12:38 Blood Culture - Final Blood 04/23/17 12:07 Blood Culture - Final Blood Laboratory Results 04/28/17 04:57 04/29/17 07:01 04/28/17 04/29/17 04/30/17 05:59 05:59 05:59 Intake Total 450 200 Output Total 275 650 Balance 175 -450 PT 14.7 SEC (12.0-15.0) 04/27/17 04:56 INR 1.15 (0.83-1.16) 04/27/17 04:56 - Physical Exam Constitutional: no apparent distress, obese, other (Somnolent) Eyes: PERRL (Small) Cardiovascular: regular rate and rhythym Respiratory: no respiratory distress, other (Snoring), No expiratory wheeze, No inspiratory crackles, No bronchial breath sounds Gastrointestinal: soft, non-tender abdomen Genitourinary: no bladder fullness Skin: warm, No mottled, No erythema Neurologic: No AAOx3 Psychiatric: encephalopathic, No interacting appropriately ICD10 Worksheet Patient Problems: Problems Problem Status Onset Lumbar disc herniation with radiculopathy Acute Chest pain Acute Elevated troponin Acute Hepatitis Acute Acute respiratory failure Acute Liver failure, acute Acute
[2017-04-29 14:37] LABS: BASE EXCESS 1.9 mEq/L (-2.5-2.5); BICARBONATE 24 mEq/L (22-26); MEASURED OXYGEN SATURATION 94 % (92-95); PCO2 32 mmHg (34-38); PO2 68 mmHg (65-75); TCO2 25 mEq/L (23-27)
[2017-04-29 14:38] LABS: O2 CONCENTRATIION ROOM AIR % (0-100); P/F RATIO 0 RATIO
[2017-04-29] MEDS: LOSARTAN POTASSIUM 50 MG TAB PO SCH (14:41)
[2017-04-29] MEDS: MONTELUKAST SODIUM 10 MG TAB PO SCH (14:47)
[2017-04-29] MEDS: SENNOSIDES/DOCUSATE SODIUM TAB PO SCH ×2 (14:50→22:59)
[2017-04-29] MEDS: BACLOFEN 10 MG TAB PO SCH (16:05)
[2017-04-29] MEDS: PANTOPRAZOLE SODIUM 40 MG TAB PO SCH (16:06)
[2017-04-29] MEDS: TAMSULOSIN HCL 0.4 MG CAP PO SCH (16:07)
[2017-04-29] MEDS: PROPRANOLOL HCL 20 MG TAB PO SCH (16:07)
[2017-04-29] MEDS ORDERED: HEPARIN 10,000 UNIT/10 ML MDV ONE (18:52)
[2017-04-29] MEDS ORDERED: HEPARIN 50,000 UNIT/10 ML VIAL ONE (18:52)
[2017-04-29 19:18] LABS: % IMMATURE GRANULYOCYTES 0.8 % (0.0-1.1); ABSOLUTE IMMATURE GRANULOCYTES 0.08 10^3/uL (0.00-0.10); ADD DIFF? NO; ADD MORPH? NO; ADD SCAN? NO; ATYPICAL LYMPHOCYTE FLAG 20 (0-99); FRAGMENT RBC FLAG 0 (0-99); HEMATOCRIT 35.3 % (40.0-51.0); HEMOGLOBIN 12.7 g/dL (13.7-17.5); LEFT SHIFT FLG 0 (0-99); LIPEMIA HEMOLYSIS FLAG 90 (0-99); MEAN CELL HEMOGLOBIN 30.8 pg (27.9-34.1); MEAN CELL VOLUME 85.7 fL (81.5-99.8); PLATELET CLUMPS FLAG 0 (0-99); PLATELET COUNT 156 10^3/uL (150-400); RED BLOOD CELL COUNT 4.12 10^6/uL (4.40-6.38); RED CELL DISTRIBUTION WIDTH 12.7 % (11.5-15.2)
[2017-04-29 19:37] LABS: ALANINE AMINOTRANSFERASE 872 IU/L (21-72); ALBUMIN 3.3 g/dL (3.5-5.0); ALKALINE PHOSPHATASE 73 IU/L (38-126); ANION GAP 15 mEq/L (8-16); ASPARTATE AMINOTRANSFERASE 75 IU/L (17-59); BILIRUBIN,TOTAL 1.5 mg/dL (0.1-1.4); CARBON DIOXIDE 24 mEq/l (22-31); CHLORIDE 98 mEq/L (97-110); CREATININE 6.8 mg/dL (0.7-1.3); GLOMERULAR FILTRATION RATE 9; GLUCOSE 86 mg/dL (70-100); POTASSIUM 4.6 mEq/L (3.5-5.2); SODIUM 137 mEq/L (134-144); TOTAL PROTEIN 5.9 g/dL (6.3-8.2)
[2017-04-29 21:29] LABS: CERULOPLASMIN SERUM 29 mg/dL (18-36)
[2017-04-30 04:49] LABS: HEMATOCRIT 32.9 % (40.0-51.0); HEMOGLOBIN 11.5 g/dL (13.7-17.5); MEAN CELL HEMOGLOBIN 30.2 pg (27.9-34.1); MEAN CELL VOLUME 86.4 fL (81.5-99.8); RED BLOOD CELL COUNT 3.81 10^6/uL (4.40-6.38); RED CELL DISTRIBUTION WIDTH 12.6 % (11.5-15.2)
[2017-04-30 05:13] LABS: ALANINE AMINOTRANSFERASE 691 IU/L (21-72); ALBUMIN 2.9 g/dL (3.5-5.0); ALKALINE PHOSPHATASE 68 IU/L (38-126); ANION GAP 15 mEq/L (8-16); ASPARTATE AMINOTRANSFERASE 61 IU/L (17-59); BILIRUBIN,TOTAL 1.2 mg/dL (0.1-1.4); CALCIUM 8.8 mg/dL (8.5-10.4); CARBON DIOXIDE 23 mEq/l (22-31); CHLORIDE 98 mEq/L (97-110); GLOMERULAR FILTRATION RATE 7; GLUCOSE 87 mg/dL (70-100); MAGNESIUM 2.3 mg/dL (1.6-2.3); POTASSIUM 4.2 mEq/L (3.5-5.2); SODIUM 136 mEq/L (134-144); TOTAL PROTEIN 5.4 g/dL (6.3-8.2)
[2017-04-30 05:22] LABS: CREATININE 7.7 mg/dL (0.7-1.3)
[2017-04-30] MEDS: PROPRANOLOL HCL 20 MG TAB PO SCH (09:35)
[2017-04-30] MEDS: LOSARTAN POTASSIUM 50 MG TAB PO SCH (09:35)
[2017-04-30] MEDS: PANTOPRAZOLE SODIUM 40 MG TAB PO SCH (09:35)
[2017-04-30] MEDS: SENNOSIDES/DOCUSATE SODIUM TAB PO SCH ×2 (09:35→20:55)
[2017-04-30] MEDS: MONTELUKAST SODIUM 10 MG TAB PO SCH (09:36)
[2017-04-30] MEDS: CALCIUM ACETATE 667 MG CAP PO SCH ×3 (09:36→18:24)
[2017-04-30] MEDS ORDERED: NS 1,000 ML IV SCH (10:00)
--- NOTE | 2017-04-30 10:10 | HOSPPROG ---
Hospitalist Progress Note Assessment/Plan: 56-year-old man with recent fusion by Dr. Price is admitted for discharge with symptoms of weakness and shortness of breath. He was found to be hypotensive and hypoxic. He had multiple abnormalities including renal failure , hepatitis and altered mental status. Reviewed GI and Nephrology evaluation. It was felt that he likely had hypotension and hypoxia due to narcotic overuse with subsequent ATN and renal failure as well as acute hepatitis. Patient more alert today however continues to have word-finding difficulty and not oriented. He is quite anxious About this. Patient had no p.o. intake yesterday. # acute encephalopathy, I suspect this may be medication related. * Minimize all centrally acting medications * ABG normal, CT scan of the head negative. * Continue to monitor the next 24 hours off medications and hopefully he will continue to improve. # acute renal failure, unknown etiology although suspicion high for ATN due to hypotension. Discussed with Nephrology. * Continue dialysis , improved urine output today since he had no oral intake yesterday will give him 500 cc of normal saline this morning. * Continue electrolyte management per Nephrology * Good urine output overnight # constipation: Patient with no BM since last Monday. Has been getting MiraLax will add suppositories today. # shock liver: Slow improvement with enzymes will continue to monitor. # pleuritic chest pain, V/Q scan negative, Dopplers negative. Echo does show mild right pulmonary hypertension, I suspect he has sleep apnea. # elevated troponins likely secondary to cardiac strain from hypotension. will talk with Cardiology regarding timing of further evaluation certainly not tell his mental status is normalizing. # status post lumbar fusion, pain control difficult with oxycodone, and patient very sensitive to that medicine. Fentanyl patch tried yesterday but he is quite sedated today will discontinue that. Will do trial of tramadol as needed when patient becomes more alert. # anemia # thrombocytopenia Subjective: Patient more alert today. Still not oriented. Having some word- finding difficulties and anxious about this. Objective: Vital Signs Temp Pulse Resp BP Pulse Ox 36.2 C 83 18 142/80 H 97 04/30/17 07:17 04/30/17 09:35 04/30/17 07:17 04/30/17 09:35 04/30/17 07:17 Laboratory Results 04/30/17 04:28 04/30/17 04:28 04/29/17 04/30/17 05/01/17 05:59 05:59 05:59 Intake Total 200 Output Total 650 1100 Balance -450 -1100 PT 14.7 SEC (12.0-15.0) 04/27/17 04:56 INR 1.15 (0.83-1.16) 04/27/17 04:56 - Physical Exam Constitutional: chronically ill appearing, uncomfortable Eyes: PERRL, anicteric sclera, EOMI Ears, Nose, Mouth, Throat: moist mucous membranes Cardiovascular: regular rate and rhythym, no murmur, rub, or gallop Respiratory: no respiratory distress Gastrointestinal: normoactive bowel sounds, tenderness ( Lower quadrants no cardiac), No guarding, No rebound, No distension Genitourinary: no bladder fullness, carlton in urethra Skin: warm Musculoskeletal: full muscle strength, no muscle tenderness Neurologic: No AAOx3, No facial droop Psychiatric: encephalopathic, anxious ICD10 Worksheet Patient Problems: Problems Problem Status Onset Lumbar disc herniation with radiculopathy Acute Chest pain Acute Elevated troponin Acute Hepatitis Acute Acute respiratory failure Acute Liver failure, acute Acute
[2017-04-30] MEDS ORDERED: BISACODYL 10 MG SUPP PR ONE (10:23)
--- NOTE | 2017-04-30 10:58 | SOAPPROG ---
SOAP Progress Note Assessment/Plan: Assessment/Plan: POONAM: likely ATN, oliguric but now starting to make more urine, Cr still uptrending in between HD sessions and he had delirium in between concerning for uremia, now improved after HD. - Will do HD today, plan for longer treatment. - Will do HD again tomorrow. - Will continue to monitor for recovery. - Avoid hypotension and nephrotoxins. URIEL: Phos down to 7.8, will continue phos binder and continue to monitor daily. Anemia: Hgb 11.5, no need for epo, will continue to monitor. Subjective: No acute events overnight. Pt had HD yesterday, more awake today but still a little confused, denies pain or dyspnea. Objective: Vital Signs Temp Pulse Resp BP Pulse Ox 36.2 C 83 18 142/80 H 97 04/30/17 07:17 04/30/17 09:35 04/30/17 07:17 04/30/17 09:35 04/30/17 07:17 Laboratory Results 04/30/17 04:28 04/30/17 04:28 04/29/17 04/30/17 05/01/17 05:59 05:59 05:59 Intake Total 200 Output Total 650 1100 Balance -450 -1100 PT 14.7 SEC (12.0-15.0) 04/27/17 04:56 INR 1.15 (0.83-1.16) 04/27/17 04:56 General: alert and oriented, no acute distress Eyes; EOMI, PERRL OP: Clear CV: RRR Resp: nonlabored respirations on oxymask Abd; SOft, NT Ext; trace edema BLE Neuro: CN II-XII grossly intact, no asterixis Psych; cooperative, appropriate mood and affect, slightly confused Access; RIJ temp cath ICD10 Worksheet Patient Problems: Problems Problem Status Onset Acute respiratory failure Acute Chest pain Acute Elevated troponin Acute Hepatitis Acute Liver failure, acute Acute Lumbar disc herniation with radiculopathy Acute
[2017-04-30 12:15] LABS: ALBUMIN 2.9 g/dL (3.5-5.0); BILIRUBIN,TOTAL 1.2 mg/dL (0.1-1.4); BILIRUBIN-CONJUGATED 0.6 mg/dL (0.0-0.5); BILIRUBIN-UNCONJUGATED 0.6 mg/dL (0.0-1.1); TOTAL PROTEIN 5.4 g/dL (6.3-8.2)
--- NOTE | 2017-04-30 17:04 | ASMTCMCOM ---
CM Note CM Note Notes: CM met w/ pt and for dispo planning. PT/OT are recommending SNF. is agreeble to referral to [facility] in [facility]. CM faxed info over to [facility] and awaiting to hear back. CM to follow. Date Signed: 04/26/2017 02:31 PM Electronically Signed By:Nancy Louie
--- NOTE | 2017-04-30 17:05 | ASMTCMCOM ---
CM Note CM Note Notes: CM met w/ pt and for dispo planning. CM informed pt and of the out of pocket cost for [facility]. seemed optimistic that would be the best option for pt. would like to speak to therapy about how they came to conclusion that pt needs a [facility] facility. CM to follow. Date Signed: 04/28/2017 09:35 AM Electronically Signed By:Nancy Louie
--- NOTE | 2017-04-30 17:07 | ASMTCMCOM ---
CM Note CM Note Notes: CM met w/ pt and to inform them that Yonatan from [facility] wanted to come to speak to the family and provide a breakdown of the cost. Yonatan will come by to visit w/ pt and on Monday. CM spoke w/ Yonatan and was informed that [facility] needs to set up the dayalsis facility prior to discharging to [facility]. Yonatan suggested that the [facility] would be the best options and closest to their facility. [facility] MD would need to put in dayalsis orders the day prior to discharge or day of discharge. CM to follow. Date Signed: 04/28/2017 03:14 PM Electronically Signed By:Nancy Louie
[2017-04-30] MEDS ORDERED: HEPARIN 50,000 UNIT/10 ML VIAL ONE (18:38)
[2017-04-30] MEDS: traMADol 50 MG TAB PO PRN (22:34)
[2017-04-30] MEDS: ONDANSETRON 4 MG/2 ML VIAL IVP PRN (23:05)
[2017-05-01 05:26] LABS: % IMMATURE GRANULYOCYTES 0.8 % (0.0-1.1); ABSOLUTE IMMATURE GRANULOCYTES 0.08 10^3/uL (0.00-0.10); ADD DIFF? NO; ADD MORPH? NO; ADD SCAN? NO; ATYPICAL LYMPHOCYTE FLAG 30 (0-99); FRAGMENT RBC FLAG 0 (0-99); HEMATOCRIT 33.2 % (40.0-51.0); HEMOGLOBIN 11.7 g/dL (13.7-17.5); LEFT SHIFT FLG 0 (0-99); LIPEMIA HEMOLYSIS FLAG 90 (0-99); MEAN CELL HEMOGLOBIN 30.5 pg (27.9-34.1); MEAN CELL HEMOGLOBIN CONCENTR. 35.2 g/dL (32.4-36.7); MEAN CELL VOLUME 86.7 fL (81.5-99.8); MEAN PLATELET VOLUME 8.9 fL (8.7-11.7); PLATELET CLUMPS FLAG 0 (0-99); PLATELET COUNT 168 10^3/uL (150-400); RED BLOOD CELL COUNT 3.83 10^6/uL (4.40-6.38); RED CELL DISTRIBUTION WIDTH 12.7 % (11.5-15.2)
[2017-05-01 05:45] LABS: ALBUMIN 2.8 g/dL (3.5-5.0); ANION GAP 11 mEq/L (8-16); CALCIUM 8.8 mg/dL (8.5-10.4); CARBON DIOXIDE 25 mEq/l (22-31); CHLORIDE 98 mEq/L (97-110); CREATININE 5.6 mg/dL (0.7-1.3); GLOMERULAR FILTRATION RATE 11; GLUCOSE 90 mg/dL (70-100); MAGNESIUM 2.2 mg/dL (1.6-2.3); POTASSIUM 4.1 mEq/L (3.5-5.2); SODIUM 134 mEq/L (134-144)
[2017-05-01] MEDS: ONDANSETRON 4 MG/2 ML VIAL IVP PRN (08:06)
[2017-05-01] MEDS ORDERED: ACETAMINOPHEN 325 MG TAB PO PRN (09:30)
--- NOTE | 2017-05-01 09:35 | SOAPPROG ---
JASPREET Progress Note Assessment/Plan: Assessment:Plan: ARF-likely ATN (N17.0) -non-oliguric now -creatinine and BUN under control with the daily dialysis over weekend -less azotemic and asymptomatic -Hd today -follow off Hd for the next 48 hours, assess for Hd needs on Monday -he had normal baseline in March of 0.8, so he should have complete recovery -patient with family history of kidney issues, dailysis. -he is more comfortable with his acute issues and his plan of care Access-temp Hd catheter -good function Anxiety-anxiety better -less restlessness -medications reviewed Dispo-pending -discussed with Dr. 05/01/17 09:32 Subjective: stable on dialysis Objective: Vital Signs Temp Pulse Resp BP Pulse Ox 37.4 C 99 18 142/96 H 94 05/01/17 00:00 05/01/17 00:00 05/01/17 00:00 05/01/17 00:00 05/01/17 00:00 Laboratory Results 05/01/17 05:20 05/01/17 05:20 04/30/17 05/01/17 05/02/17 05:59 05:59 05:59 Output Total 1100 2080 Balance -1100 -2080 PT 14.7 SEC (12.0-15.0) 04/27/17 04:56 INR 1.15 (0.83-1.16) 04/27/17 04:56 Physical Exam - Physical Exam General Appearance: WD/WN, alert, no apparent distress EENT: normal ENT inspection Neck: other (R IJ elaina) Respiratory: normal breath sounds, decreased breath sounds (at bases posteriorly ), No respiratory distress Cardiac/Chest: regular rate, rhythm, No diastolic murmur, No systolic murmur Abdomen: normal bowel sounds, non-tender, soft Skin: normal color, warm/dry Extremities: swelling (trace) Neuro/Psych: no motor/sensory deficits, alert, normal mood/affect ICD10 Worksheet Patient Problems: Problems Problem Status Onset Acute respiratory failure Acute Chest pain Acute Elevated troponin Acute Hepatitis Acute Liver failure, acute Acute Lumbar disc herniation with radiculopathy Acute
[2017-05-01] MEDS: PANTOPRAZOLE SODIUM 40 MG TAB PO SCH (12:07)
[2017-05-01] MEDS: MONTELUKAST SODIUM 10 MG TAB PO SCH (12:08)
[2017-05-01] MEDS: PROPRANOLOL HCL 20 MG TAB PO SCH (12:09)
[2017-05-01] MEDS: CALCIUM ACETATE 667 MG CAP PO SCH ×3 (12:10→19:11)
--- NOTE | 2017-05-01 12:24 | HOSPPROG ---
Hospitalist Progress Note Assessment/Plan: 56-year-old man with recent fusion by Dr. Price is admitted for discharge with symptoms of weakness and shortness of breath. He was found to be hypotensive and hypoxic. He had multiple abnormalities including renal failure , hepatitis and altered mental status. Reviewed GI and Nephrology evaluation. It was felt that he likely had hypotension and hypoxia due to narcotic overuse with subsequent ATN and renal failure as well as acute hepatitis. Patient much more alert today able to carry on a conversation. # acute encephalopathy, I suspect this may be medication related. He is improving today * Minimize all centrally acting medications * ABG normal, CT scan of the head negative. # acute renal failure, unknown etiology although suspicion high for ATN due to hypotension. Discussed with Nephrology. * Continue dialysis , improved urine output today * Continue electrolyte management per Nephrology * Good urine output overnight # constipation: Patient with no BM since last Monday. Has been getting MiraLax will add suppositories today. # shock liver: Slow improvement with enzymes will continue to monitor. * Liver function appears normal will add Tylenol and follow-up his liver enzymes closely # pleuritic chest pain, V/Q scan negative, Dopplers negative. Echo does show mild right pulmonary hypertension, I suspect he has sleep apnea. # elevated troponins likely secondary to cardiac strain from hypotension. will talk with Cardiology regarding timing of further evaluation certainly not tell his mental status is normalizing. # status post lumbar fusion, pain control difficult with oxycodone, and patient very sensitive to that medicine. Fentanyl patch tried yesterday but he is quite sedated today will discontinue that. Will do trial of tramadol as needed when patient becomes more alert. # anemia # thrombocytopenia Subjective: Much more alert today feeling better and appropriate. Objective: Vital Signs Temp Pulse Resp BP Pulse Ox 37 C 97 18 152/64 H 96 05/01/17 12:07 05/01/17 12:07 05/01/17 12:07 05/01/17 12:07 05/01/17 12:07 Laboratory Results 05/01/17 05:20 05/01/17 05:20 04/30/17 05/01/17 05/02/17 05:59 05:59 05:59 Output Total 1100 2080 Balance -1100 -2080 PT 14.7 SEC (12.0-15.0) 04/27/17 04:56 INR 1.15 (0.83-1.16) 04/27/17 04:56 - Physical Exam Constitutional: no apparent distress, uncomfortable Eyes: PERRL Cardiovascular: regular rate and rhythym, no murmur, rub, or gallop Respiratory: no respiratory distress, no rales or rhonchi Gastrointestinal: normoactive bowel sounds, No tenderness Genitourinary: carlton in urethra Skin: warm Neurologic: AAOx3 Psychiatric: interacting appropriately, anxious ICD10 Worksheet Patient Problems: Problems Problem Status Onset Lumbar disc herniation with radiculopathy Acute Chest pain Acute Elevated troponin Acute Hepatitis Acute Acute respiratory failure Acute Liver failure, acute Acute
[2017-05-01] MEDS: SENNOSIDES/DOCUSATE SODIUM TAB PO SCH ×2 (12:36→20:46)
[2017-05-01] MEDS: LIDOCAINE 5% 1 EA PATCH TD SCH (13:40)
[2017-05-01 14:11] LABS: ALBUMIN 2.7 g/dL (3.5-5.0); BILIRUBIN,TOTAL 1.1 mg/dL (0.1-1.4); BILIRUBIN-CONJUGATED 0.4 mg/dL (0.0-0.5); BILIRUBIN-UNCONJUGATED 0.7 mg/dL (0.0-1.1); TOTAL PROTEIN 5.3 g/dL (6.3-8.2)
--- NOTE | 2017-05-01 16:15 | SOAPPROG ---
SOAP Progress Note Assessment/Plan: Assessment: Pt is post op day 3, s/p revision Left L4-5 discectomy with TLIF, posterior fusion and instrumentation. Had been discharged in good condition yesterday. No sign of lumbar wound infection. Neurologically intact and preop LLE pain gone. Acute hepatitis/ etiology unknown. Pt does state that the baclofen given yesterday for severe hiccups seemed to coincide with his current symptoms. Plan: Per hospitalist and hepatology. 04/23/17 15:17 04/24/17 15:44 post op day 4, s/p l4-5 lami, tlif, post fusion, instrum. Acute renal failure: dialysis planned for tomorrow. Acute hepatitis: etiology uncertain. Appreciate all subspecialty help. Stable from surgical standpoint and wound continues to look good. 05/01/17 16:12 post op day 11 s/p revision left L4-5 discectomy, and tlif/post fusion/instrum. Pt doing well neurologically. Improving from hepatic and renal standpoints also. Discussed his condition and care plan with hospitalist. Cont PT and OT and daily dry dressing change to lumbar wound. Subjective: Pt states he feels weak overall. No left leg pain. Minimal lumbar incisional pain. Objective: Vital Signs Temp Pulse Resp BP Pulse Ox 37 C 97 18 152/64 H 96 05/01/17 12:07 05/01/17 12:07 05/01/17 12:07 05/01/17 12:07 05/01/17 12:07 Laboratory Results 05/01/17 05:20 05/01/17 05:20 04/30/17 05/01/17 05/02/17 05:59 05:59 05:59 Output Total 1100 2080 Balance -1100 -2080 PT 14.7 SEC (12.0-15.0) 04/27/17 04:56 INR 1.15 (0.83-1.16) 04/27/17 04:56 BLE motor 5/5. SLR negative x 2. Bridget's negative x 2. Lumbar wound with mild staple erythema. No drainage and minimally tender. ICD10 Worksheet Patient Problems: Problems Problem Status Onset Acute respiratory failure Acute Chest pain Acute Elevated troponin Acute Hepatitis Acute Liver failure, acute Acute Lumbar disc herniation with radiculopathy Acute
[2017-05-01] MEDS ORDERED: HEPARIN 50,000 UNIT/10 ML VIAL ONE (18:00)
[2017-05-01] MEDS ORDERED: CALCIUM CARBONATE 500 MG CHEWABLE TAB PO PRN (23:40)
[2017-05-02] MEDS: PATCH REMOVAL 1 EA PATCH TD SCH ×2 (02:23→22:54)
[2017-05-02 05:24] LABS: % IMMATURE GRANULYOCYTES 0.8 % (0.0-1.1); ABSOLUTE IMMATURE GRANULOCYTES 0.09 10^3/uL (0.00-0.10); ADD DIFF? NO; ADD MORPH? NO; ADD SCAN? NO; ATYPICAL LYMPHOCYTE FLAG 20 (0-99); FRAGMENT RBC FLAG 0 (0-99); HEMATOCRIT 32.8 % (40.0-51.0); HEMOGLOBIN 11.4 g/dL (13.7-17.5); LEFT SHIFT FLG 0 (0-99); LIPEMIA HEMOLYSIS FLAG 90 (0-99); MEAN CELL HEMOGLOBIN 30.2 pg (27.9-34.1); MEAN CELL HEMOGLOBIN CONCENTR. 34.8 g/dL (32.4-36.7); MEAN PLATELET VOLUME 9.2 fL (8.7-11.7); PLATELET CLUMPS FLAG 0 (0-99); PLATELET COUNT 202 10^3/uL (150-400); RED BLOOD CELL COUNT 3.77 10^6/uL (4.40-6.38); RED CELL DISTRIBUTION WIDTH 12.8 % (11.5-15.2)
[2017-05-02 05:42] LABS: ALBUMIN 2.9 g/dL (3.5-5.0); ANION GAP 10 mEq/L (8-16); CALCIUM 9.1 mg/dL (8.5-10.4); CARBON DIOXIDE 26 mEq/l (22-31); CHLORIDE 97 mEq/L (97-110); CREATININE 5.4 mg/dL (0.7-1.3); GLOMERULAR FILTRATION RATE 11; GLUCOSE 89 mg/dL (70-100); MAGNESIUM 2.1 mg/dL (1.6-2.3); SODIUM 133 mEq/L (134-144)
--- NOTE | 2017-05-02 09:04 | HOSPPROG ---
Hospitalist Progress Note Assessment/Plan: 56-year-old man with recent fusion by Dr. Price is admitted after discharge with symptoms of weakness and shortness of breath. He was found to be hypotensive and hypoxic. He had multiple abnormalities including renal failure, hepatitis and altered mental status. Reviewed GI and Nephrology evaluation. It was felt that he likely had hypotension and hypoxia due to narcotic overuse with subsequent ATN and renal failure as well as acute hepatitis from shock liver. Patient much more alert today able to carry on a conversation. # acute encephalopathy, I suspect this may be medication related. He continues to improve and seems to be close to baseline * Minimize all centrally acting medications * ABG normal, CT scan of the head negative. # acute renal failure, unknown etiology although suspicion high for ATN due to hypotension. uremia has improved after several days of dialysis * urine output continues to improve * monitor labs, dialysis per Nephrology. * hopefully he will stabilize off dialysis, and can be discharged to rehab in the next several days * # constipation: patient had a BM yesterday. Has been getting MiraLax will add suppositories today. # shock liver: Slow improvement with enzymes will continue to monitor. * Liver function appears normal will add Tylenol and follow-up his liver enzymes closely # pleuritic chest pain, V/Q scan negative, Dopplers negative. Echo does show mild right pulmonary hypertension, I suspect he has sleep apnea. # elevated troponins likely secondary to cardiac strain from hypotension. will talk with Cardiology regarding timing of further evaluation certainly not tell his mental status is normalizing. # status post lumbar fusion, pain control difficult with oxycodone, and patient very sensitive to that medicine. Fentanyl patch tried yesterday but he is quite sedated today will discontinue that. Will do trial of tramadol as needed when patient becomes more alert. # anemia # thrombocytopenia disposition: Patient will go to skilled rehab after hospitalization. He can be discharged once it is determined whether he needs ongoing dialysis or if he recovers enough kidney function that he can be monitor off dialysis. Subjective: Quite alert today. Pain under good control. Had a lot of appropriate questions regarding his hospital course. Objective: Vital Signs Temp Pulse Resp BP Pulse Ox 36.8 C 80 16 150/78 H 96 05/02/17 07:47 05/02/17 07:47 05/02/17 07:47 05/02/17 07:47 05/02/17 07:47 Laboratory Results 05/02/17 05:02 05/02/17 05:02 05/01/17 05/02/17 05/03/17 05:59 05:59 05:59 Intake Total 1350 400 Output Total 2080 800 Balance -2079 550 400 PT 14.7 SEC (12.0-15.0) 04/27/17 04:56 INR 1.15 (0.83-1.16) 04/27/17 04:56 - Physical Exam Constitutional: obese Eyes: PERRL, EOMI Ears, Nose, Mouth, Throat: moist mucous membranes Cardiovascular: regular rate and rhythym, No edema Respiratory: no respiratory distress, no rales or rhonchi Gastrointestinal: normoactive bowel sounds, soft, non-tender abdomen Genitourinary: carlton in urethra Skin: warm Neurologic: AAOx3 Psychiatric: interacting appropriately, not anxious, not encephalopathic ICD10 Worksheet Patient Problems: Problems Problem Status Onset Lumbar disc herniation with radiculopathy Acute Chest pain Acute Elevated troponin Acute Hepatitis Acute Acute respiratory failure Acute Liver failure, acute Acute
--- NOTE | 2017-05-02 09:16 | SOAPPROG ---
JASPREET Progress Note Assessment/Plan: Assessment:Plan: ARF-likely ATN (N17.0) -non-oliguric now -creatinine and BUN under control with the daily dialysis over weekend -less azotemic and asymptomatic -Hd yesterday -follow off Hd for the next 48 hours, assess for Hd needs on Monday -if creatinine 6 or less on 05/03/17 am labs, will hold off on Hd -he had normal baseline in March of 0.8, so he should have complete recovery Access-temp Hd catheter -good function Anxiety-anxiety better -less restlessness -medications reviewed Dispo-pending -expect renal recovery soon 05/02/17 09:14 Subjective: no complaints, more mobile Objective: Vital Signs Temp Pulse Resp BP Pulse Ox 36.8 C 80 16 150/78 H 96 05/02/17 07:47 05/02/17 07:47 05/02/17 07:47 05/02/17 07:47 05/02/17 07:47 Laboratory Results 05/02/17 05:02 05/02/17 05:02 05/01/17 05/02/17 05/03/17 05:59 05:59 05:59 Intake Total 1350 400 Output Total 2080 800 Balance -2080 550 400 PT 14.7 SEC (12.0-15.0) 04/27/17 04:56 INR 1.15 (0.83-1.16) 04/27/17 04:56 Physical Exam - Physical Exam General Appearance: WD/WN, alert, no apparent distress EENT: normal ENT inspection Neck: normal inspection, other (RISSA Horton) Respiratory: lungs clear, normal breath sounds, No respiratory distress Cardiac/Chest: regular rate, rhythm, No diastolic murmur, No systolic murmur Abdomen: normal bowel sounds, non-tender, soft, No organomegaly Back: Normal inspection Skin: normal color, warm/dry Extremities: No swelling Neuro/Psych: no motor/sensory deficits, alert, normal mood/affect ICD10 Worksheet Patient Problems: Problems Problem Status Onset Acute respiratory failure Acute Chest pain Acute Elevated troponin Acute Hepatitis Acute Liver failure, acute Acute Lumbar disc herniation with radiculopathy Acute
[2017-05-02] MEDS: CALCIUM ACETATE 667 MG CAP PO SCH ×3 (09:37→19:02)
[2017-05-02] MEDS: PROPRANOLOL HCL 20 MG TAB PO SCH (09:40)
[2017-05-02] MEDS: MONTELUKAST SODIUM 10 MG TAB PO SCH (09:40)
[2017-05-02] MEDS: PANTOPRAZOLE SODIUM 40 MG TAB PO SCH (09:42)
[2017-05-02] MEDS: LIDOCAINE 5% 1 EA PATCH TD SCH (11:12)
[2017-05-02] MEDS: SENNOSIDES/DOCUSATE SODIUM TAB PO SCH ×2 (12:43→22:54)
[2017-05-03 05:24] LABS: ALBUMIN 2.9 g/dL (3.5-5.0); ANION GAP 14 mEq/L (8-16); CALCIUM 8.6 mg/dL (8.5-10.4); CARBON DIOXIDE 24 mEq/l (22-31); CHLORIDE 96 mEq/L (97-110); CREATININE 7.1 mg/dL (0.7-1.3); GLOMERULAR FILTRATION RATE 8; GLUCOSE 93 mg/dL (70-100); POTASSIUM 3.9 mEq/L (3.5-5.2); SODIUM 134 mEq/L (134-144)
[2017-05-03] MEDS: PANTOPRAZOLE SODIUM 40 MG TAB PO SCH (09:34)
[2017-05-03] MEDS: CALCIUM ACETATE 667 MG CAP PO SCH ×3 (09:34→18:51)
[2017-05-03] MEDS: SENNOSIDES/DOCUSATE SODIUM TAB PO SCH ×2 (09:34→20:42)
[2017-05-03] MEDS: MONTELUKAST SODIUM 10 MG TAB PO SCH (09:34)
[2017-05-03] MEDS: PROPRANOLOL HCL 20 MG TAB PO SCH (09:35)
[2017-05-03] MEDS: LIDOCAINE 5% 1 EA PATCH TD SCH (09:36)
--- NOTE | 2017-05-03 10:23 | SOAPPROG ---
SOAP Progress Note Assessment/Plan: Assessment: 1 POONAM. Ischemic ATN. Nonoliguric. Creat up to 7.1. Dialysis today, then hold and watch for recovery. 2. Hyperphosphatemia. Mild. Should resolve as #1 resolves. 3. HTN. Mildly elevated BPs. Continue holding losartan. Plan: 05/03/17 10:21 05/03/17 10:22 05/03/17 10:22 Subjective: [place] a little queasy over night and feels less well than yesterday in general. No vomiting. Objective: Vital Signs Temp Pulse Resp BP Pulse Ox 36.9 C 76 16 140/82 H 93 05/03/17 07:37 05/03/17 07:37 05/03/17 07:37 05/03/17 07:37 05/03/17 07:37 Laboratory Results 05/02/17 05:02 05/03/17 04:47 05/02/17 05/03/17 05/04/17 05:59 05:59 05:59 Intake Total 1350 850 400 Output Total 800 1800 Balance 550 -950 400 PT 14.7 SEC (12.0-15.0) 04/27/17 04:56 INR 1.15 (0.83-1.16) 04/27/17 04:56 Comfortable wm RRR, no m/g/r CTAB Abdom soft, nt Tr LE edema ICD10 Worksheet Patient Problems: Problems Problem Status Onset Lumbar disc herniation with radiculopathy Acute Chest pain Acute Elevated troponin Acute Hepatitis Acute Acute respiratory failure Acute Liver failure, acute Acute
--- NOTE | 2017-05-03 11:45 | ASMTCMCOM ---
CM Note CM Note Notes: Pt to have dialyis today and will be monitored for recovery. Vanessa at [facility] notified. Date Signed: 05/03/2017 11:44 AM Electronically Signed By:Sharda Price RN
--- NOTE | 2017-05-03 16:40 | HOSPPROG ---
Hospitalist Progress Note Assessment/Plan: DIAGNOSES: # acute encephalopathy, I suspect this may be medication related. He continues to improve and seems to be close to baseline * Minimize all centrally acting medications * ABG normal, CT scan of the head negative. # acute renal failure, unknown etiology although suspicion high for ATN due to hypotension Or hypoxemic injury. uremia has improved after several days of dialysis * urine output continues to improve * monitor labs, continue dialysis sessions as needed per Nephrology. # shock liver: Slow improvement with enzymes will continue to monitor. * will follow-up his liver enzymes closely # pleuritic chest pain, V/Q scan negative, Dopplers negative. Echo does show mild right pulmonary hypertension, I suspect he has sleep apnea. # elevated troponins likely secondary to cardiac strain from hypoxemia/ hypotension. do not suspect acute coronary syndrome at this time # status post lumbar fusion -Currently still requiring walker and physical therapy, pain mobility are improving -Currently pain adequately controlled with Lidoderm and tramadol # anemia # thrombocytopenia As there has been no evidence of an acute infectious episode, and acute cardiac event, significant hypovolemia, or severe hypotension, suspect he may have had potential respiratory near arrest at home potentially related to narcotic medication as the cause of his multiorgan injury. PLANS: -Continue dialysis as needed, will need to stay in the hospital until his kidneys have recovered to the point of coming off dialysis -Continue to avoid narcotic, will continue his lidocaine and tramadol for pain management at this time -Avoid benzos is a is a pains in other medications with neurologic side effects as able -continue physical therapy -Remove Carey catheter at this time SUBJECTIVE: feels better overall, still with some pain and requiring use of walker Tolerated dialysis well today No shortness of breath respiratory symptoms Eating well OBJECTIVE Vitals reviewed: stable without fever 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, 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: Exam: alert oriented skin warm dry color ok resps not labored lungs clear BSs heart regular abd soft nondistended nontender, bowel sounds present limbs warm, no edema iv site ok Objective: Vital Signs Temp Pulse Resp BP Pulse Ox 36.7 C 95 18 134/70 H 95 05/03/17 10:57 05/03/17 10:57 05/03/17 10:57 05/03/17 10:57 05/03/17 10:57 Laboratory Results 05/02/17 05:02 05/03/17 04:47 05/02/17 05/03/17 05/04/17 06:59 06:59 06:59 Intake Total 1350 1250 Output Total 800 1800 Balance 550 -550 PT 14.7 SEC (12.0-15.0) 04/27/17 04:56 INR 1.15 (0.83-1.16) 04/27/17 04:56 - Time Spent With Patient Time Spent with Patient: greater than 35 minutes Time Spent with Patient: Greater than 35 minutes spent on this patients care, greater than 50% of time spent counseling, educating, and coordinating care regarding the above mentioned plan. ICD10 Worksheet Patient Problems: Problems Problem Status Onset Acute respiratory failure Acute Chest pain Acute Elevated troponin Acute Hepatitis Acute Liver failure, acute Acute Lumbar disc herniation with radiculopathy Acute
[2017-05-03] MEDS ORDERED: HEPARIN 50,000 UNIT/10 ML VIAL ONE (16:50)
[2017-05-03 19:37] LABS: ANION GAP 10 mEq/L (8-16); CALCIUM 9.6 mg/dL (8.5-10.4); CARBON DIOXIDE 28 mEq/l (22-31); CHLORIDE 93 mEq/L (97-110); GLOMERULAR FILTRATION RATE 16; GLUCOSE 80 mg/dL (70-100); SODIUM 131 mEq/L (134-144)
[2017-05-03] MEDS: PATCH REMOVAL 1 EA PATCH TD SCH (22:00)
[2017-05-04 05:58] LABS: ALBUMIN 3.1 g/dL (3.5-5.0); ANION GAP 11 mEq/L (8-16); CALCIUM 8.9 mg/dL (8.5-10.4); CARBON DIOXIDE 26 mEq/l (22-31); CHLORIDE 97 mEq/L (97-110); CREATININE 4.6 mg/dL (0.7-1.3); GLOMERULAR FILTRATION RATE 13; GLUCOSE 80 mg/dL (70-100); POTASSIUM 4.2 mEq/L (3.5-5.2); SODIUM 134 mEq/L (134-144)
[2017-05-04] MEDS: LIDOCAINE 5% 1 EA PATCH TD SCH (09:06)
[2017-05-04] MEDS: MONTELUKAST SODIUM 10 MG TAB PO SCH (09:06)
[2017-05-04] MEDS: PROPRANOLOL HCL 20 MG TAB PO SCH (09:06)
[2017-05-04] MEDS: CALCIUM ACETATE 667 MG CAP PO SCH ×3 (09:06→18:30)
[2017-05-04] MEDS: PANTOPRAZOLE SODIUM 40 MG TAB PO SCH (09:07)
[2017-05-04] MEDS: SENNOSIDES/DOCUSATE SODIUM TAB PO SCH ×2 (09:07→20:56)
--- NOTE | 2017-05-04 11:09 | SOAPPROG ---
SOAP Progress Note Assessment/Plan: Assessment/Plan: POONAM: likely ATN, now nonoliguric with good UOP. He would have increasing Cr between HD sessions with significant delirium. His mental status is improved, Cr still uptrending since HD yesterday. - No HD today. - Will continue to monitor for HD needs and renal recovery. - Avoid hypotension and nephrotoxins. URIEL: Phos down to 4.8, will continue phos binder and continue to monitor daily. Anemia: Hgb 11.4, no need for epo, will continue to monitor. Subjective: No acute events overnight. Pt had HD yesterday and tolerated well, no complaints. He feels his mental status is baseline today. Objective: Vital Signs Temp Pulse Resp BP Pulse Ox 36.9 C 80 18 140/82 H 92 05/04/17 08:33 05/04/17 08:33 05/04/17 08:33 05/04/17 08:33 05/04/17 08:33 Laboratory Results 05/02/17 05:02 05/04/17 04:44 05/03/17 05/04/17 05/05/17 05:59 05:59 05:59 Intake Total 850 900 Output Total 1800 2150 250 Balance -950 -1250 -250 PT 14.7 SEC (12.0-15.0) 04/27/17 04:56 INR 1.15 (0.83-1.16) 04/27/17 04:56 General: alert and oriented, no acute distress Eyes; EOMI, PERRL OP: clear CV: RRR Resp: nonlabored respirations Abd: soft, nontender Ext: no edema Neuro: CN II-XII grossly intact, no asterixis Psych; cooperative, appropriate mood and affect ICD10 Worksheet Patient Problems: Problems Problem Status Onset Acute respiratory failure Acute Chest pain Acute Elevated troponin Acute Hepatitis Acute Liver failure, acute Acute Lumbar disc herniation with radiculopathy Acute
--- NOTE | 2017-05-04 12:47 | HOSPPROG ---
Hospitalist Progress Note Assessment/Plan: DIAGNOSES: # acute encephalopathy, multifactorial, resolved * Minimize all centrally acting medications # acute renal failure, unknown etiology although suspicion high for ATN due to hypotension or hypoxemic injury. Has been symptomatic during uremia, better after dailysis sessions * urine output continues to improve * monitor labs, continue dialysis sessions as needed per Nephrology. # shock liver: good improvement * will follow-up his liver enzymes closely # pleuritic chest pain, V/Q scan negative, Dopplers negative. Echo does show mild right pulmonary hypertension, I suspect he has sleep apnea. # elevated troponins likely secondary to cardiac strain from hypoxemia/ hypotension. do not suspect acute coronary syndrome at this time # status post lumbar fusion -Currently still requiring walker and physical therapy, pain mobility are improving -Currently pain adequately controlled with Lidoderm and tramadol # anemia # thrombocytopenia As there has been no evidence of an acute infectious episode, acute cardiac event, significant hypovolemia, or severe hypotension, suspect he may have had potential respiratory near arrest at home potentially related to narcotic medication as the cause of his multiorgan injury. PLANS: -Continue dialysis as needed, will need to stay in the hospital until his kidneys have recovered to the point of coming off dialysis -Continue to avoid narcotic, will continue his lidocaine and tramadol for pain management at this time -Avoid benzos as well as other medications with neurologic side effects as able -continue physical therapy SUBJECTIVE: feels better overall, still with some pain but able to work well w PT OT, sits most of day up in chair Feels uremic symptoms get better after each dialysis session and are overall clearing very well, minimal symptoms today No shortness of breath respiratory symptoms Eating well OBJECTIVE Vitals reviewed: stable without fever 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, 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: Exam: alert oriented skin warm dry color ok resps not labored lungs clear BSs heart regular abd soft nondistended nontender, bowel sounds present limbs warm, no edema iv site ok Objective: Vital Signs Temp Pulse Resp BP Pulse Ox 36.9 C 80 18 140/82 H 92 05/04/17 08:33 05/04/17 08:33 05/04/17 08:33 05/04/17 08:33 05/04/17 08:33 Laboratory Results 05/02/17 05:02 05/04/17 04:44 05/03/17 05/04/17 05/05/17 06:59 06:59 06:59 Intake Total 1250 500 Output Total 1800 2150 550 Balance -550 -1650 -550 PT 14.7 SEC (12.0-15.0) 04/27/17 04:56 INR 1.15 (0.83-1.16) 04/27/17 04:56 ICD10 Worksheet Patient Problems: Problems Problem Status Onset Acute respiratory failure Acute Chest pain Acute Elevated troponin Acute Hepatitis Acute Liver failure, acute Acute Lumbar disc herniation with radiculopathy Acute
[2017-05-04] MEDS: PATCH REMOVAL 1 EA PATCH TD SCH (21:06)
[2017-05-05] MEDS: ONDANSETRON 4 MG/2 ML VIAL IVP PRN ×3 (05:16→22:15)
[2017-05-05] MEDS: traMADol 50 MG TAB PO PRN ×2 (05:23→22:23)
[2017-05-05 05:59] LABS: ALBUMIN 3.2 g/dL (3.5-5.0); ANION GAP 12 mEq/L (8-16); CALCIUM 9.7 mg/dL (8.5-10.4); CARBON DIOXIDE 24 mEq/l (22-31); CHLORIDE 98 mEq/L (97-110); GLOMERULAR FILTRATION RATE 10; GLUCOSE 86 mg/dL (70-100); POTASSIUM 4.2 mEq/L (3.5-5.2); SODIUM 134 mEq/L (134-144)
[2017-05-05] MEDS: MONTELUKAST SODIUM 10 MG TAB PO SCH (09:17)
[2017-05-05] MEDS: PROPRANOLOL HCL 20 MG TAB PO SCH (09:17)
[2017-05-05] MEDS: CALCIUM ACETATE 667 MG CAP PO SCH ×3 (09:18→17:26)
[2017-05-05] MEDS: PANTOPRAZOLE SODIUM 40 MG TAB PO SCH (09:18)
[2017-05-05] MEDS: SENNOSIDES/DOCUSATE SODIUM TAB PO SCH ×2 (09:18→22:17)
[2017-05-05] MEDS: LIDOCAINE 5% 1 EA PATCH TD SCH (09:20)
--- NOTE | 2017-05-05 16:06 | SOAPPROG ---
SOAP Progress Note Assessment/Plan: Assessment/Plan: POONAM: likely ATN, now nonoliguric with good UOP. He would have increasing Cr between HD sessions with significant delirium. His mental status is improved, Cr still uptrending to 6.0 today. - Will do HD today as do not want pt to have mental status changes. - Will continue to monitor for HD needs and renal recovery through the weekend. - Avoid hypotension and nephrotoxins. URIEL: Phos 5.2, will continue phos binder and continue to monitor daily. Anemia: Hgb 11.4, no need for epo, will continue to monitor. Subjective: No acute events overnight. Pt with good UOP and mental status stable. Objective: Vital Signs Temp Pulse Resp BP Pulse Ox 36.9 C 91 14 144/90 H 93 05/05/17 08:00 05/05/17 09:17 05/05/17 08:00 05/05/17 09:17 05/05/17 08:00 Laboratory Results 05/02/17 05:02 05/05/17 04:43 05/04/17 05/05/17 05/06/17 05:59 05:59 05:59 Intake Total 900 850 Output Total 2150 2900 300 Balance -1250 -2050 -300 PT 14.7 SEC (12.0-15.0) 04/27/17 04:56 INR 1.15 (0.83-1.16) 04/27/17 04:56 General: alert and oriented, no acute distress Eyes; EOMI, PERRL OP: Clear CV: RRR Resp: nonlabored respirations on NC Abd: Soft, NT Ext: +1 edema BLE Neuro: CN II-XII grossly intact, no asterixis Psych: cooperative, appropriate mood and affect Access: RIJ temp cath ICD10 Worksheet Patient Problems: Problems Problem Status Onset Acute respiratory failure Acute Chest pain Acute Elevated troponin Acute Hepatitis Acute Liver failure, acute Acute Lumbar disc herniation with radiculopathy Acute
--- NOTE | 2017-05-05 16:25 | ASMTCMCOM ---
CM Note CM Note Notes: CM met w/ pt and for dispo planning. Pt reports that he feels much better. Pt reports that he has been working with OT/PT. Pt reports that he is able to shower by himself, stand w/out a walker and stand on 1 leg. Pt reports that the plan is to stay over the wknd to continue monitoring stability w/out dialysis. Pt and are still agreeable to going to [facility]. CM sent over updates to [facility]. CM to follow. Date Signed: 05/05/2017 04:25 PM Electronically Signed By:DELIA Smallwood
[2017-05-05] MEDS ORDERED: CEPACOL LOZENGE PO PRN (17:59)
--- NOTE | 2017-05-05 18:03 | HOSPPROG ---
Hospitalist Progress Note Assessment/Plan: Assessment: 56-year-old man with recent fusion by Dr. Price is admitted after discharge with symptoms of weakness and shortness of breath. He was found to be hypotensive and hypoxic. He had multiple abnormalities including renal failure, hepatitis and altered mental status. It was felt that he likely had hypotension and hypoxia due to narcotic overuse with subsequent ATN and renal failure as well as acute hepatitis from shock liver. Plan: # acute encephalopathy, Evidenced by global brain dysfunction characterized as somnolence and confusion, secondary to the toxic effects opiate medications as well as metabolic effects of acute kidney injury with acute tubular necrosis # ATN due to hypotension. uremia has improved after several days of dialysis * discussed with Dr. Maggie Blanco, she has recommended ongoing hemodialysis and close monitoring of his urine output between dialysis sessions # constipation: patient had a BM yesterday. increased senokot-s per patient request today, monitor for effect # shock liver: Slow improvement with enzymes, repeat level in AM # pleuritic chest pain, V/Q scan negative, Dopplers negative. Echo does show mild right pulmonary hypertension, has underlying suspected BRYANT # elevated troponins likely secondary to cardiac strain from hypotension # status post lumbar fusion, pain control difficult with oxycodone, and patient very sensitive to that medicine. trial tramadol and lidoderm patch, pain currently well managed # anemia: repeat hgb level now # thrombocytopenia: repeat level now Diet. Renal Prophylaxis. High risk patient, heparin subcu Code. Full Disposition. Currently receiving physical and occupational therapy, will most likely discharge home with home care services Subjective: patient reports pain is well managed, he would like something for dry mouth at night Objective: Vital Signs Temp Pulse Resp BP Pulse Ox 37.2 C 89 24 H 132/90 H 92 05/05/17 16:00 05/05/17 16:00 05/05/17 16:00 05/05/17 16:00 05/05/17 16:00 Laboratory Results 05/02/17 05:02 05/05/17 04:43 05/04/17 05/05/17 05/06/17 05:59 05:59 05:59 Intake Total 900 850 Output Total 2150 2900 300 Balance -1250 -2050 -300 PT 14.7 SEC (12.0-15.0) 04/27/17 04:56 INR 1.15 (0.83-1.16) 04/27/17 04:56 - Physical Exam Constitutional: no apparent distress, appears nourished, not in pain, No chronically ill appearing, No uncomfortable Cardiovascular: regular rate and rhythym, no murmur, rub, or gallop, edema ( 1+ bilateral lower extremity), No irregularly irregular Respiratory: no respiratory distress, no rales or rhonchi, clear to auscultation Gastrointestinal: normoactive bowel sounds, soft, non-tender abdomen, no palpable masses Neurologic: AAOx3, sensation intact bilaterally, No facial droop Psychiatric: interacting appropriately, not anxious, not encephalopathic, thought process linear ICD10 Worksheet Patient Problems: Problems Problem Status Onset Lumbar disc herniation with radiculopathy Acute Chest pain Acute Elevated troponin Acute Hepatitis Acute Acute respiratory failure Acute Liver failure, acute Acute
[2017-05-05] MEDS: PATCH REMOVAL 1 EA PATCH TD SCH (22:19)
[2017-05-05] MEDS ORDERED: HEPARIN 50,000 UNIT/10 ML VIAL ONE (23:00)
[2017-05-06] MEDS: ONDANSETRON 4 MG/2 ML VIAL IVP PRN ×3 (05:25→20:50)
[2017-05-06] MEDS: traMADol 50 MG TAB PO PRN ×2 (05:39→20:56)
[2017-05-06 06:49] LABS: ALANINE AMINOTRANSFERASE 182 IU/L (21-72); ALBUMIN 3.5 g/dL (3.5-5.0); ALKALINE PHOSPHATASE 64 IU/L (38-126); ANION GAP 14 mEq/L (8-16); ASPARTATE AMINOTRANSFERASE 43 IU/L (17-59); BILIRUBIN,TOTAL 0.9 mg/dL (0.1-1.4); BILIRUBIN-CONJUGATED 0.4 mg/dL (0.0-0.5); BILIRUBIN-UNCONJUGATED 0.5 mg/dL (0.0-1.1); CALCIUM 9.4 mg/dL (8.5-10.4); CARBON DIOXIDE 25 mEq/l (22-31); CHLORIDE 97 mEq/L (97-110); CREATININE 4.3 mg/dL (0.7-1.3); GLOMERULAR FILTRATION RATE 14; GLUCOSE 89 mg/dL (70-100); POTASSIUM 4.3 mEq/L (3.5-5.2); SODIUM 136 mEq/L (134-144); TOTAL PROTEIN 6.3 g/dL (6.3-8.2)
[2017-05-06] MEDS: MONTELUKAST SODIUM 10 MG TAB PO SCH (08:11)
[2017-05-06] MEDS: CALCIUM ACETATE 667 MG CAP PO SCH ×3 (08:11→17:45)
[2017-05-06] MEDS: SENNOSIDES/DOCUSATE SODIUM TAB PO SCH ×2 (08:11→20:51)
[2017-05-06] MEDS: PANTOPRAZOLE SODIUM 40 MG TAB PO SCH (08:11)
[2017-05-06] MEDS: LIDOCAINE 5% 1 EA PATCH TD SCH (08:11)
[2017-05-06] MEDS: PROPRANOLOL HCL 20 MG TAB PO SCH (08:11)
--- NOTE | 2017-05-06 09:55 | SOAPPROG ---
SOAP Progress Note Assessment/Plan: Assessment: 1. POONAM Non oliguric. Last HD yesterday. Follow for need for future dialysis. 2. LFT's Improved 3. Thrombocytopenia Resolved. Plan: 05/06/17 09:53 Subjective: Doing fair Objective: Vital Signs Temp Pulse Resp BP Pulse Ox 36.6 C 86 17 150/90 H 92 05/06/17 07:58 05/06/17 07:58 05/06/17 07:58 05/06/17 07:58 05/06/17 07:58 Laboratory Results 05/02/17 05:02 05/06/17 06:04 05/05/17 05/06/17 05/07/17 05:59 05:59 05:59 Intake Total 850 1140 Output Total 2900 1825 Balance -0 -5 PT 14.7 SEC (12.0-15.0) 04/27/17 04:56 INR 1.15 (0.83-1.16) 04/27/17 04:56 Physical Exam - Physical Exam General Appearance: no apparent distress Neck: other (Cath site ok) Respiratory: lungs clear Cardiac/Chest: regular rate, rhythm Extremities: pedal edema (trace) Neuro/Psych: oriented x 3 ICD10 Worksheet Patient Problems: Problems Problem Status Onset Acute respiratory failure Acute Chest pain Acute Elevated troponin Acute Hepatitis Acute Liver failure, acute Acute Lumbar disc herniation with radiculopathy Acute
--- NOTE | 2017-05-06 15:50 | ASMTCMCOM ---
CM Note CM Note Notes: CM spoke w/pt re; dc poc. Initial plan was for pt to go to [facility] if needed dialysis. Will be here through the weekend and MD will reevaluate on Monday. 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 Date Signed: 05/06/2017 03:49 PM Electronically Signed By:Sharda Price RN
--- NOTE | 2017-05-06 17:56 | HOSPPROG ---
Hospitalist Progress Note Assessment/Plan: Assessment: 56-year-old man with recent fusion by Dr. Price is admitted after discharge with symptoms of weakness and shortness of breath. He was found to be hypotensive and hypoxic. He had multiple abnormalities including renal failure, hepatitis and acute metabolic encephalopathy. It was felt that he likely had hypotension and hypoxia due to narcotic overuse with subsequent ATN and shock liver. Plan: # acute encephalopathy, secondary to the toxic effects opiate medications as well as metabolic effects of acute kidney injury with acute tubular necrosis - resolved # ATN due to hypotension. uremia has improved after several days of dialysis, plan to hold HD tomorrow and trend BUN/Cr/K for 48hrs to gauge whether he can safely have his dialysis catheter removed prior to discharge - good UOP o/n - monitor lytes # constipation: patient had a BM yesterday. increased senokot-s per patient request yesterday, monitor for effect - if no BM, give PO bisacodyl and then WI # shock liver: Ongoing improvement with enzymes, repeat level in AM # pleuritic chest pain, V/Q scan negative, Dopplers negative. Echo does show mild right pulmonary hypertension, has underlying suspected BRYANT # elevated troponins likely secondary to cardiac strain from hypotension # status post lumbar fusion, pain control difficult with oxycodone, and patient very sensitive to that medicine. trial tramadol and lidoderm patch, pain currently well managed # anemia: repeat hgb in AM # thrombocytopenia: repeat level in AM Diet. Renal Prophylaxis. High risk patient, heparin subcu Code. Full Disposition. Currently receiving physical and occupational therapy, will most likely discharge home with home care services 05/08 Subjective: patient is feeling well today and very emotionally relieved Objective: Vital Signs Temp Pulse Resp BP Pulse Ox 37.3 C 83 14 150/80 H 92 05/06/17 15:46 05/06/17 15:46 05/06/17 15:46 05/06/17 16:00 05/06/17 15:46 Laboratory Results 05/02/17 05:02 05/06/17 06:04 05/05/17 05/06/17 05/07/17 05:59 05:59 05:59 Intake Total 850 1140 Output Total 2900 1825 700 Balance -2049 -5 -700 PT 14.7 SEC (12.0-15.0) 04/27/17 04:56 INR 1.15 (0.83-1.16) 04/27/17 04:56 - Physical Exam Constitutional: no apparent distress, appears nourished, not in pain, No uncomfortable Cardiovascular: edema ( trace bilateral lower extremities), No systolic murmur, No irregularly irregular, No tachycardia Respiratory: no respiratory distress, no rales or rhonchi, clear to auscultation Gastrointestinal: normoactive bowel sounds, soft, non-tender abdomen, no palpable masses Neurologic: AAOx3, sensation intact bilaterally, No weakness Psychiatric: interacting appropriately, not anxious, not encephalopathic, thought process linear ICD10 Worksheet Patient Problems: Problems Problem Status Onset Acute respiratory failure Acute Chest pain Acute Elevated troponin Acute Hepatitis Acute Liver failure, acute Acute Lumbar disc herniation with radiculopathy Acute
[2017-05-06] MEDS: PATCH REMOVAL 1 EA PATCH TD SCH (21:00)
[2017-05-07 05:48] LABS: % IMMATURE GRANULYOCYTES 0.5 % (0.0-1.1); ABSOLUTE IMMATURE GRANULOCYTES 0.04 10^3/uL (0.00-0.10); ADD DIFF? NO; ADD MORPH? NO; ADD SCAN? NO; ATYPICAL LYMPHOCYTE FLAG 10 (0-99); FRAGMENT RBC FLAG 0 (0-99); HEMATOCRIT 29.4 % (40.0-51.0); HEMOGLOBIN 10.3 g/dL (13.7-17.5); LEFT SHIFT FLG 0 (0-99); LIPEMIA HEMOLYSIS FLAG 90 (0-99); MEAN CELL HEMOGLOBIN 30.2 pg (27.9-34.1); MEAN CELL VOLUME 86.2 fL (81.5-99.8); MEAN PLATELET VOLUME 9.2 fL (8.7-11.7); PLATELET CLUMPS FLAG 0 (0-99); PLATELET COUNT 332 10^3/uL (150-400); RED BLOOD CELL COUNT 3.41 10^6/uL (4.40-6.38); RED CELL DISTRIBUTION WIDTH 12.4 % (11.5-15.2)
[2017-05-07 06:13] LABS: ALBUMIN 3.4 g/dL (3.5-5.0); ANION GAP 11 mEq/L (8-16); CALCIUM 10.1 mg/dL (8.5-10.4); CARBON DIOXIDE 27 mEq/l (22-31); CHLORIDE 96 mEq/L (97-110); CREATININE 4.8 mg/dL (0.7-1.3); GLOMERULAR FILTRATION RATE 13; GLUCOSE 82 mg/dL (70-100); POTASSIUM 4.2 mEq/L (3.5-5.2); SODIUM 134 mEq/L (134-144)
[2017-05-07] MEDS: LIDOCAINE 5% 1 EA PATCH TD SCH (09:10)
[2017-05-07] MEDS: PROPRANOLOL HCL 20 MG TAB PO SCH (09:24)
[2017-05-07] MEDS: SENNOSIDES/DOCUSATE SODIUM TAB PO SCH (09:25)
[2017-05-07] MEDS: CALCIUM ACETATE 667 MG CAP PO SCH ×3 (09:25→18:41)
[2017-05-07] MEDS: PANTOPRAZOLE SODIUM 40 MG TAB PO SCH (09:25)
[2017-05-07] MEDS: MONTELUKAST SODIUM 10 MG TAB PO SCH (09:25)
--- NOTE | 2017-05-07 11:49 | SOAPPROG ---
JASPREET Progress Note Assessment/Plan: Assessment: 1. POONAM Good UO. Cr still rising. HD tomorrow. 2. LFT's Improved 3. Thrombocytopenia Resolved. 4. DC planning Pt may go to LTAC or SNF. If he has not recovered off of dialysis, he will need tunneled catheter and outpatient arrangements for acute dialysis. Plan: 05/06/17 09:53 05/07/17 11:45 Subjective: Doing pretty well Objective: Vital Signs Temp Pulse Resp BP Pulse Ox 36.8 C 91 14 160/96 H 91 L 05/07/17 08:00 05/07/17 08:00 05/07/17 08:00 05/06/17 23:32 05/07/17 08:00 Laboratory Results 05/07/17 05:26 05/07/17 05:26 05/06/17 05/07/17 05/08/17 05:59 05:59 05:59 Intake Total 1140 1300 Output Total 1825 2350 Balance -685 -1050 PT 14.7 SEC (12.0-15.0) 04/27/17 04:56 INR 1.15 (0.83-1.16) 04/27/17 04:56 Physical Exam - Physical Exam General Appearance: no apparent distress Respiratory: lungs clear Cardiac/Chest: regular rate, rhythm Extremities: normal inspection Neuro/Psych: oriented x 3 ICD10 Worksheet Patient Problems: Problems Problem Status Onset Acute respiratory failure Acute Chest pain Acute Elevated troponin Acute Hepatitis Acute Liver failure, acute Acute Lumbar disc herniation with radiculopathy Acute
--- NOTE | 2017-05-07 15:57 | SOAPPROG ---
SOAP Progress Note Assessment/Plan: Assessment: 56-year-old man with recent fusion by Dr. Price, admitted after discharge with symptoms of weakness and shortness of breath. He was found to be hypotensive and hypoxic. He had multiple abnormalities including renal failure, hepatitis and acute metabolic encephalopathy. It was felt that he likely had hypotension and hypoxia due to narcotic overuse with subsequent ATN and shock liver. Plan: # acute encephalopathy, secondary to the toxic effects opiate medications as well as metabolic effects of acute kidney injury with acute tubular necrosis - resolved # ATN due to hypotension. -discussed care plan with renal, Dr Geller -planned dialysis in AM -may need tunnel cath depending upon dispo # constipation: resolved, multiple BMs today -decreased senna # shock liver: Ongoing improvement -ALT sl elev yest, other LFTs nl # pleuritic chest pain, V/Q scan negative, Dopplers negative. Echo does show mild right pulmonary hypertension, has underlying suspected BRYANT # elevated troponins likely secondary to cardiac strain from hypotension # status post lumbar fusion -pain control OK with tramadol and lidoderm patch -alexandr in place -post op care per Dr Price # anemia -sl trend down -continue to monitor for stability # thrombocytopenia, resolved Diet. Renal Prophylaxis. High risk patient, heparin subcu Code. Full PCP Disposition. Currently receiving physical and occupational therapy, will most likely discharge home with home care vs to SNF depending upon dialysis status 05/07/17 19:33 Subjective: Has had several stools today. Thinks leg swelling resolved. Pain OK. Overall feels better. Plan for dialysis in AM per Dr Geller. Objective: Vital Signs Temp Pulse Resp BP Pulse Ox 98.2 F 91 14 160/96 H 91 L 05/07/17 08:00 05/07/17 08:00 05/07/17 08:00 05/06/17 23:32 05/07/17 08:00 Laboratory Results 05/07/17 05:26 05/07/17 05:26 05/06/17 05/07/17 05/08/17 11:59 11:59 11:59 Intake Total 1140 1300 120 Output Total 1525 2350 400 Balance -385 -1050 -280 PT 14.7 SEC (12.0-15.0) 04/27/17 04:56 INR 1.15 (0.83-1.16) 04/27/17 04:56 - Pending Discharge Pending Discharge Within 24 Hours: No Physical Exam - Physical Exam General Appearance: WD/WN, alert, no apparent distress Respiratory: lungs clear, normal breath sounds Cardiac/Chest: normal peripheral pulses, regular rate, rhythm, No edema Skin: warm/dry Neuro/Psych: alert, normal mood/affect ICD10 Worksheet Patient Problems: Problems Problem Status Onset Acute respiratory failure Acute Chest pain Acute Elevated troponin Acute Hepatitis Acute Liver failure, acute Acute Lumbar disc herniation with radiculopathy Acute
[2017-05-07] MEDS: PATCH REMOVAL 1 EA PATCH TD SCH (20:08)
[2017-05-07] MEDS: traMADol 50 MG TAB PO PRN (23:03)
[2017-05-07] MEDS: ONDANSETRON 4 MG/2 ML VIAL IVP PRN (23:04)
[2017-05-08 05:26] LABS: HEMATOCRIT 29.3 % (40.0-51.0); HEMOGLOBIN 10.3 g/dL (13.7-17.5); MEAN CELL HEMOGLOBIN 30.7 pg (27.9-34.1); MEAN CELL HEMOGLOBIN CONCENTR. 35.2 g/dL (32.4-36.7); MEAN CELL VOLUME 87.2 fL (81.5-99.8); RED BLOOD CELL COUNT 3.36 10^6/uL (4.40-6.38); RED CELL DISTRIBUTION WIDTH 12.1 % (11.5-15.2)
[2017-05-08 05:32] LABS: ALBUMIN 3.5 g/dL (3.5-5.0); ANION GAP 13 mEq/L (8-16); CALCIUM 9.7 mg/dL (8.5-10.4); CARBON DIOXIDE 26 mEq/l (22-31); CHLORIDE 99 mEq/L (97-110); CREATININE 4.4 mg/dL (0.7-1.3); GLOMERULAR FILTRATION RATE 14; GLUCOSE 86 mg/dL (70-100); POTASSIUM 4.2 mEq/L (3.5-5.2); SODIUM 138 mEq/L (134-144)
[2017-05-08 08:00] VITALS: RESP 18
[2017-05-08] MEDS: CALCIUM ACETATE 667 MG CAP PO SCH ×3 (09:01→18:02)
[2017-05-08] MEDS: MONTELUKAST SODIUM 10 MG TAB PO SCH (09:01)
[2017-05-08] MEDS: PROPRANOLOL HCL 20 MG TAB PO SCH (09:02)
[2017-05-08] MEDS: PANTOPRAZOLE SODIUM 40 MG TAB PO SCH (09:02)
[2017-05-08] MEDS: LIDOCAINE 5% 1 EA PATCH TD SCH (09:02)
--- NOTE | 2017-05-08 11:03 | SOAPPROG ---
SOAP Progress Note Assessment/Plan: Assessment/Plan: POONAM: likely ATN, now nonoliguric with good UOP. He would have increasing Cr between HD sessions with significant delirium. His mental status is improved, and now his Cr has finally downtrended on its own to 4.4 today. - Will hold off on HD as it seems that he may finally be recovering. - Will continue to monitor for further recovery. - If Cr continues to downtrend, may be able to remove dialysis catheter tomorrow. - Avoid hypotension and nephrotoxins. URIEL: Phos 4.6, will continue phos binder and continue to monitor daily. Anemia: Hgb stable at 10.3, no need for epo, will continue to monitor. Subjective: No acute events overnight. Pt notes that he is feeling quite thirsty since last night but no other complaints. He feels his strength is improving and may not require discharge to rehab. He mentally feels very clear. Objective: Vital Signs Temp Pulse Resp BP Pulse Ox 36.7 C 81 18 157/94 H 92 05/08/17 07:53 05/08/17 09:02 05/08/17 07:53 05/08/17 09:02 05/08/17 07:53 Laboratory Results 05/08/17 04:37 05/08/17 04:37 05/07/17 05/08/17 05/09/17 05:59 05:59 05:59 Intake Total 1300 970 Output Total 2350 2400 Balance -1050 -1430 PT 14.7 SEC (12.0-15.0) 04/27/17 04:56 INR 1.15 (0.83-1.16) 04/27/17 04:56 General: alert and oriented, no acute distress Eyes; EOMI, PERRL OP: Clear CV: RRR Resp: nonlabored respirations on NC Abd: Soft, NT Ext: trace edema BLE Neuro: CN II-XII grossly intact, no asterixis Psych; cooperative, appropriate mood and affect Access; RIJ temp cath ICD10 Worksheet Patient Problems: Problems Problem Status Onset Acute respiratory failure Acute Chest pain Acute Elevated troponin Acute Hepatitis Acute Liver failure, acute Acute Lumbar disc herniation with radiculopathy Acute
--- NOTE | 2017-05-08 14:03 | SOAPPROG ---
SOAP Progress Note Assessment/Plan: Assessment: 56-year-old man with recent fusion by Dr. Price, admitted with symptoms of weakness and shortness of breath. He was found to be hypotensive and hypoxic. He had multiple abnormalities including renal failure, hepatitis and acute metabolic encephalopathy. It was felt that he likely had hypotension and hypoxia due to narcotic overuse with subsequent ATN and shock liver. Plan: # acute encephalopathy, secondary to the toxic effects opiate medications as well as metabolic effects of acute kidney injury with acute tubular necrosis - resolved # ATN due to hypotension. -appreciate renal service assistance -dialysis cancelled today -maybe able to discharge home with [facility] if stable per renal # constipation: resolved # shock liver: Ongoing improvement # pleuritic chest pain, V/Q scan negative, Dopplers negative. Echo does show mild right pulmonary hypertension, has underlying suspected BRYANT # elevated troponins likely secondary to cardiac strain from hypotension # status post lumbar fusion -pain control OK with tramadol and lidoderm patch -alexandr in place -asked RN to reach out to Dr Price re staple removal/FU care # anemia -continue to monitor for stability # thrombocytopenia, resolved Diet. Renal Prophylaxis. High risk patient, heparin subcu Code. Full PCP Disposition. Currently receiving physical and occupational therapy, will most likely discharge home with home care vs to SNF, all depending upon dialysis status Subjective: Feeling better every day, no further BMs. Happy to not have dialysis today! No CP/SOB/ROE. Objective: Vital Signs Temp Pulse Resp BP Pulse Ox 98.1 F 81 18 157/94 H 92 05/08/17 07:53 05/08/17 09:02 05/08/17 07:53 05/08/17 09:02 05/08/17 07:53 Laboratory Results 05/08/17 04:37 05/08/17 04:37 05/07/17 05/08/17 05/09/17 11:59 11:59 11:59 Intake Total 1300 970 Output Total 2350 2400 Balance -1050 -1430 PT 14.7 SEC (12.0-15.0) 04/27/17 04:56 INR 1.15 (0.83-1.16) 04/27/17 04:56 Physical Exam - Physical Exam General Appearance: WD/WN, alert, no apparent distress Respiratory: chest non-tender, lungs clear, normal breath sounds Cardiac/Chest: normal peripheral pulses, regular rate, rhythm, No edema Abdomen: normal bowel sounds, non-tender, soft, No distended, No guarding Skin: warm/dry Neuro/Psych: no motor/sensory deficits, alert, normal mood/affect, oriented x 3 , No cognition abnormalities, No speech abnormalities, No disoriented to person , No disoriented to place, No disoriented to time, No depressed affect ICD10 Worksheet Patient Problems: Problems Problem Status Onset Acute respiratory failure Acute Chest pain Acute Elevated troponin Acute Hepatitis Acute Liver failure, acute Acute Lumbar disc herniation with radiculopathy Acute
--- NOTE | 2017-05-08 14:32 | ASMTCMCOM ---
CM Note CM Note Notes: Discussed patient status with MD, dialysis on hold for today as renal function has improved, they will reeevaluate in am for further dialysis needs. Met with patient to discuss discharge POC. He wishes to go home with HHC services when medically stable. He reports he has had HHC in past but can't recall the name of the company. Address and phone number verified. Will revisit tomorrow when his is available to esablish preference for HHC. Updated [facility]. CM to follow. Date Signed: 05/08/2017 02:32 PM Electronically Signed By:Yolanda Adams RN
[2017-05-08] MEDS: ONDANSETRON 4 MG/2 ML VIAL IVP PRN (21:01)
[2017-05-08] MEDS: PATCH REMOVAL 1 EA PATCH TD SCH (21:01)
[2017-05-08] MEDS: traMADol 50 MG TAB PO PRN (21:01)
[2017-05-09 05:24] LABS: ALBUMIN 3.5 g/dL (3.5-5.0); ANION GAP 11 mEq/L (8-16); CALCIUM 9.9 mg/dL (8.5-10.4); CARBON DIOXIDE 25 mEq/l (22-31); CHLORIDE 100 mEq/L (97-110); CREATININE 3.8 mg/dL (0.7-1.3); GLOMERULAR FILTRATION RATE 17; GLUCOSE 90 mg/dL (70-100); POTASSIUM 4.2 mEq/L (3.5-5.2); SODIUM 136 mEq/L (134-144)
[2017-05-09] MEDS: CALCIUM ACETATE 667 MG CAP PO SCH ×2 (07:27→13:13)
[2017-05-09 09:20] VITALS: BP 138/76; PULSE 106; TEMP 98; O2SAT 94
[2017-05-09] MEDS: LIDOCAINE 5% 1 EA PATCH TD SCH (09:45)
[2017-05-09] MEDS: PROPRANOLOL HCL 20 MG TAB PO SCH (09:46)
[2017-05-09] MEDS: MONTELUKAST SODIUM 10 MG TAB PO SCH (09:47)
[2017-05-09] MEDS: PANTOPRAZOLE SODIUM 40 MG TAB PO SCH (09:47)
--- NOTE | 2017-05-09 10:32 | ASMTCMCOM ---
CM Note CM Note Notes: CM consulted w/ Dr. Terry regarding pts d/c POC. Pt is being discharged today. Pt will most likely not have any needs and will d/c independent. Pt will f/u with his PCP and do outpatient rehab. CM available for any changes. Date Signed: 05/09/2017 10:31 AM Electronically Signed By:DELIA Smallwood
--- NOTE | 2017-05-09 10:44 | SOAPPROG ---
SOAP Progress Note Assessment/Plan: Assessment/Plan: POONAM: likely ATN, now nonoliguric with good UOP. He would have increasing Cr between HD sessions with significant delirium. His mental status is improved, and now his Cr has finally downtrended on its own to 3.8 today. - No need for HD. - Ok to remove HD catheter. - Will f/u with him in clinic. URIEL: Phos 4.0, ok to d/c phos binder. Anemia: Hgb stable at 10.3, no need for epo, will continue to monitor. Subjective: No acute events overnight. Pt with good UOP and feeling well, mentally clear, and notes that therapy here has helped him be physically stronger as well. Objective: Vital Signs Temp Pulse Resp BP Pulse Ox 36.6 C 106 H 18 138/76 H 94 05/09/17 08:00 05/09/17 09:46 05/09/17 08:00 05/09/17 09:46 05/09/17 08:00 Laboratory Results 05/08/17 04:37 05/09/17 04:51 05/08/17 05/09/17 05/10/17 05:59 05:59 05:59 Intake Total 970 1300 Output Total 2400 2100 Balance -1430 -800 PT 14.7 SEC (12.0-15.0) 04/27/17 04:56 INR 1.15 (0.83-1.16) 04/27/17 04:56 General: alert and oriented, no acute distress Eyes; EOMI, PERRL OP: Clear CV: RRR Resp: nonlabored respirations Abd; Soft, NT Ext: trace edema BLE Neuro: CN II-XII grossly intact, no asterixis Psych: cooperative, appropriate mood and affect Access: RIJ temp cath ICD10 Worksheet Patient Problems: Problems Problem Status Onset Acute respiratory failure Acute Chest pain Acute Elevated troponin Acute Hepatitis Acute Liver failure, acute Acute Lumbar disc herniation with radiculopathy Acute
--- NOTE | 2017-05-09 12:07 | GDS ---
[f rep st] DISCHARGE SUMMARY SERVICE: [facility] hospitalists. CONSULTANTS: Orthopedic Surgery, Dr. Gem Muñoz. Pulmonary/Critical Care Medicine, Dr. Timoteo toro. Gastroenterology, Dr. Portillo. Nephrology service. PROCEDURES: 1. Head CT. 2. Central venous line access, right. 3. internal jugular vein. 4. Abdominal ultrasound. 5. Chest x-ray. 6. Lower extremity Doppler. 7. Lung perfusion ventilation scan (note, pulmonary embolism). 8. Echocardiogram. HISTORY AND PHYSICAL: Please see previously dictated note by Dr. Corbett. ADMISSION DIAGNOSES: 1. Acute respiratory distress and failure with hypoxemia. 2. Hepatitis. 3. Acute renal failure. 4. Abnormal troponin. 5. Asthma. 6. Recent lumbar spine fusion. DISCHARGE DIAGNOSES: 1. Acute respiratory distress and failure with hypoxemia. 2. Hepatitis. 3. Acute renal failure. 4. Abnormal troponin. 5. Asthma. 6. Recent lumbar spine fusion. 7. Acute encephalopathy. 8. Anemia. 9. Thrombocytopenia. HOSPITAL COURSE BY PROBLEM LIST: 1. Acute respiratory failure. The patient initially came into the emergency department because of p leuritic chest pain and difficulty breathing. He had a recent lumbar spinal fusion with Dr. Phelan and was only 1 day postop when he came back to the emergency department. He had an initial oxyge n saturation of 86% on room air. He had a V/Q scan after an elevated D-dimer, which was negative for pulmonary embolism. He also had a bilateral lower extremity Doppler, which was negative for DVT. Yarelis cohen was admitted to the intensive care unit for treatment. Dr. Hernandez became involved in the patient's care. No obvious abnormality was seen on chest x-ray either. He has a history of asthma and sleep apnea, but he did not have any obvious sequelae from either. He had a stat echocardiogram to ensure heart function and no acute failure, which showed a normal systolic function, but some evidence of ri ght ventricular overload and mild concentric LVH. He had multiple troponins drawn, which were all sl ightly elevated, with a max of 1.150 on 04/23/2017. These were felt to be related to cardiac stress and not indicating an acute cardiac event. He did require supplemental oxygen. That was as high as 6 L, but gradually over the course of his stay, his oxygen requirement decreased, and at time of disc harge, his O2 sats are greater than 94% on room air, and he is not discharged home with any oxygen. 2. Acute hepatitis. He is noted to have an elevated INR at admission, 2.09, also had abnormal LFTs with an AST of greater than 7500 and an ALT of 9592. Gastroenterology was asked to assist in the car e of the patient. Dr. Portillo saw him on 04/23/2017. He felt this was consistent with acute hepatiti s, acute liver failure, possibly from medication exposure versus ischemic versus viral. Liver toxic medications were held. He was started on NAC (despite a normal Tylenol level). On the day following admission, his LFTs were starting to decrease. Abdominal ultrasound showed a normal-appearing liver with patent vessels. Gradually over time, his liver enzymes normalized. At the time of discharge, his most recent AST was 43 on 05/06. His most recent ALT was 182 on 05/06 (still 3 times normal leve l). Bilirubin was 0.4 on 05/06 (highest level was 0.9 at admission). Gastroenterology noted continu ed improvement within a few days of his hospitalization and subsequently signed off. 3. Acute renal injury. He was noted to have a creatinine of 2.0 at admission, with a known baseline of 0.9 just a week prior to surgery. Over the course of his stay, his creatinine significantly incr eased to a maximum of 10.4 on 04/29. Nephrology was asked to consult on the patient and became invol rosaura in his care. At the time of admission, he was nonoliguric, felt to be likely acute tubular necro sis after a hypotensive event related to high-dose narcotics and diazepam postsurgically. Decision w as made for hemodialysis, and hemodialysis access was done on 04/29, with an internal jugular and hem odialysis ordered per Nephrology. Hemodialysis was repeated on 05/03, and also 05/05. At time of di scharsea, his creatinine had decreased to 3.8. Dr. Blanco did not think any further dialysis was going to be needed, and he is going to be discharged home after IJ access point is removed. He should have a BNP level done in 2 days with his primary care provider or local laboratory with results sent to noel sheppard myself or Dr. Blanco. He should see Dr. Blanco in the office next week. I had a long discussion w ith him about nephrotoxic foods, medications, supplements, and if at any time he notices increased sw elling, decreased urine output, he should come in immediately for a re-evaluation. 4. Elevated troponins. Please see above. No further cardiac evaluation was done, other than an ech ocardiogram. 5. Asthma. No acute asthma exacerbation throughout his stay. 6. Acute encephalopathy. Mental status was noted to be significantly changed, leading to an evaluat ion with a head CT on 04/29/2017, which did not show any acute changes. That was also when his creat inine was noted to be at its highest level of 10.4. Gradually, as his creatinine stabilized and azot emia decreased, his mental status cleared. At the day of discharge, his mental status is completely back to normal, which is confirmed by his . 7. Constipation. He was noted to have difficulty with constipation, which was resolved with a bowel prep. 8. Status post lumbar fusion. Postoperatively managed with pain medications, which were changed whe n he came into the hospital because of his other medical problems. At time of discharge, his pain is well controlled with a Lidoderm patch and tramadol as needed (which causes some nausea, so he takes with Zofran). Dr. Muñoz is coming to see him today prior to discharge to remove alexandr from h is surgical site. He should follow up with Dr. Muñoz for routine postoperative care and to [facility] physical therapy and rehab. He declines home health care referral at this time. DISCHARGE MEDICATIONS: Lidoderm patch, Zofran as needed, tramadol as needed, albuterol as needed, pr opranolol daily, Singulair daily, omeprazole daily, baclofen as needed. Please note that he should n ot be taking Cozaar, OxyContin, Cipro, Percocet, or Valium. DISCHARGE INSTRUCTIONS: He should see his primary care provider, Jagruti Lowery, within a few days of discharge, will need a repeat BMP done this week. An order was given for this, but he can also have this drawn at Dr. Lowery's office. He should see Dr. Blanco, from [facility], next week. He s hould see Dr. Muñoz as previously advised. If at any time he has increased swelling, difficult y urinating, or decreased urine output, chest pain, fever, shortness of breath, or any other concerns , he should return immediately to the hospital for evaluation. Otherwise, should follow up as above. Copy requested to: Jagruti Lowery /[id number]/MODL
--- NOTE | 2017-05-09 15:16 | SOAPPROG ---
SOAP Progress Note Assessment/Plan: Assessment: Pt is post op day 3, s/p revision Left L4-5 discectomy with TLIF, posterior fusion and instrumentation. Had been discharged in good condition yesterday. No sign of lumbar wound infection. Neurologically intact and preop LLE pain gone. Acute hepatitis/ etiology unknown. Pt does state that the baclofen given yesterday for severe hiccups seemed to coincide with his current symptoms. Plan: Per hospitalist and hepatology. 04/23/17 15:17 04/24/17 15:44 post op day 4, s/p l4-5 lami, tlif, post fusion, instrum. Acute renal failure: dialysis planned for tomorrow. Acute hepatitis: etiology uncertain. Appreciate all subspecialty help. Stable from surgical standpoint and wound continues to look good. 05/01/17 16:12 post op day 11 s/p revision left L4-5 discectomy, and tlif/post fusion/instrum. Pt doing well neurologically. Improving from hepatic and renal standpoints also. Discussed his condition and care plan with hospitalist. Cont PT and OT and daily dry dressing change to lumbar wound. 05/09/17 15:15 2 1/2 weeks s/p L4-5 lami, tlif, post fusion, instrum. Pt ready for discharge. Lumbar wound looks good, without signs of infection. Malathi removed. Steristrips placed. Pt will call my office for f/u appt for 4 weeks from now. Objective: Vital Signs Temp Pulse Resp BP Pulse Ox 36.6 C 106 H 18 138/76 H 94 05/09/17 08:00 05/09/17 09:46 05/09/17 08:00 05/09/17 09:46 05/09/17 08:00 Laboratory Results 05/08/17 04:37 05/09/17 04:51 05/08/17 05/09/17 05/10/17 05:59 05:59 05:59 Intake Total 970 1300 Output Total 2400 2100 Balance -1430 -800 PT 14.7 SEC (12.0-15.0) 04/27/17 04:56 INR 1.15 (0.83-1.16) 04/27/17 04:56 ICD10 Worksheet Patient Problems: Problems Problem Status Onset Acute respiratory failure Acute Chest pain Acute Elevated troponin Acute Hepatitis Acute Liver failure, acute Acute Lumbar disc herniation with radiculopathy Acute
--- NOTE | 2017-05-11 12:14 | ASDISCHSUM ---
Discharge Information Plan Status:Home with No Needs Medically Cleared to Leave:05/09/2017 Discharge Date:05/09/2017 04:03 PM CM D/C Disposition:Home, Routine, Self-Care ADT D/C Disposition:Home, Routine, Self-Care Projected Discharge Date:05/09/2017 11:00 AM Transportation at D/C: Discharge Delay Reason: Follow-Up Date:05/09/2017 11:00 AM Discharge Slot: Final Diagnosis: Placement Information Referral Type:*Long Term/SNF Referral ID:[id number] Provider Name: Address 1: Phone Number: Address 2: Fax Number: City: Selection Factors: State: Patient Contact Information Contact Name:FREDDIE Relationship: Address:[address] City:[facility] Phone: State/Zip Code:[place] [address] Email: Financial Information Financial Class:HMO and PPO Plans Primary Plan Desc:9facts MELODY SMITH Primary Plan Number:[id number] Secondary Plan Desc: Secondary Plan Number: Assessment Information [facility] Initial CM Assessment Living Arrangements What is your living Answers: With Spouse arrangement? Who do you live with? Type Of Residence What kind of residence do Answers: House you live in? Discharge Plan Comments Coordination Status Comments Notes: Patient admitted for elevated troponin, elevated LFTs, chest pain. Patient recently had lumbar fusion with Dr. Gem Price and was discharged from [facility] yesterday. Patient was discharged home with with no needs and to follow up outpatient for PT/OT. Pt lives in [place]. Anticipate patient will discharge home with family once medically stable. CM to follow for possible discharge needs. Date Signed: 04/23/2017 11:58 AM Electronically Signed By:Mackenzie Dahl RN [facility] CM Progress Note CM Note CM Note Notes: CM met w/ pt and for dispo planning. PT/OT are recommending SNF. is agreeble to referral to [facility] in [facility]. CM faxed info over to [facility] and awaiting to hear back. CM to follow. Date Signed: 04/26/2017 02:31 PM Electronically Signed By:DELIA Smallwood [facility] ABIGAIL Progress Note CM Note ABIGAIL Note Notes: CM met w/ pt and for dispo planning. CM informed pt and of the out of pocket cost for [facility]. seemed optimistic that would be the best option for pt. would like to speak to therapy about how they came to conclusion that pt needs a detention facility. CM to follow. Date Signed: 04/28/2017 09:35 AM Electronically Signed By:DELIA Smallwood [facility] CM Progress Note ABIGAIL Note ABIGAIL Note Notes: CM met w/ pt and to inform them that Yonatan from [facility] wanted to come to speak to the family and provide a breakdown of the cost. Yonatan will come by to visit w/ pt and on Monday. CM spoke w/ Yonatan and was informed that [facility] needs to set up the dayalsis facility prior to discharging to [place]. Yonatan suggested that the [facility] would be the best options and closest to their facility. [facility] MD would need to put in dayalsis orders the day prior to discharge or day of discharge. CM to follow. Date Signed: 04/28/2017 03:14 PM Electronically Signed By:DELIA Smallwood [facility] ABIGAIL Progress Note CM Note CM Note Notes: Pt to have dialyis today and will be monitored for recovery. Vanessa at [facility] notified. Date Signed: 05/03/2017 11:44 AM Electronically Signed By:Sharda Price RN [facility] ABIGAIL Progress Note CM Note CM Note Notes: CM met w/ pt and for dispo planning. Pt reports that he feels much better. Pt reports that he has been working with OT/PT. Pt reports that he is able to shower by himself, stand w/out a walker and stand on 1 leg. Pt reports that the plan is to stay over the wknd to continue monitoring stability w/out dialysis. Pt and are still agreeable to going to [facility]. CM sent over updates to [facility]. CM to follow. Date Signed: 05/05/2017 04:25 PM Electronically Signed By:DELIA Smallwood [facility] CM Progress Note CM Note CM Note Notes: CM spoke w/pt re; dc poc. Initial plan was for pt to go to [facility] [place] if needed dialysis. Will be here through the weekend and MD will reevaluate on Monday. 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 Date Signed: 05/06/2017 03:49 PM Electronically Signed By:Sharda Price RN [facility] CM Progress Note CM Note CM Note Notes: Discussed patient status with MD, dialysis on hold for today as renal function has improved, they will reeevaluate in am for further dialysis needs. Met with patient to discuss discharge POC. He wishes to go home with HHC services when medically stable. He reports he has had HHC in past but can't recall the name of the company. Address and phone number verified. Will revisit tomorrow when his is available to esablish preference for HHC. Updated Yonatan at [facility]. CM to follow. Date Signed: 05/08/2017 02:32 PM Electronically Signed By:Yolanda Adams RN [facility] CM Progress Note CM Note CM Note Notes: CM consulted w/ Dr. Terry regarding pts d/c POC. Pt is being discharged today. Pt will most likely not have any needs and will d/c independent. Pt will f/u with his PCP and do outpatient rehab. CM available for any changes. Date Signed: 05/09/2017 10:31 AM Electronically Signed By:DELIA Smallwood Intervention Information
== END 2017-05-09 16:03 | disposition home or self-care (01) | DRG 682 ==
LOC: EDUNIT# → F2N 11:15 → F3E 04-25 13:34
PROVIDERS: ADMIT Internal Medicine; ATTEND Internal Medicine
PROC: 5A1D60Z (ICD-10-PCS; principal; 2017-04-25)
PROC: 02HV33Z Insertion of Infusion Device into Superior Vena Cava, Percutaneous Approach (ICD-10-PCS; 2017-04-25)
DX: N17.0 Acute kidney failure with tubular necrosis (principal); J96.01 Acute respiratory failure with hypoxia; G93.40 Encephalopathy, unspecified; I10 Essential (primary) hypertension; D64.9 Anemia, unspecified; G47.33 Obstructive sleep apnea (adult) (pediatric); J45.909 Unspecified asthma, uncomplicated; K75.9 Inflammatory liver disease, unspecified; K59.00 Constipation, unspecified; R07.89 Other chest pain; T40.605A Adverse effect of unspecified narcotics, initial encounter; Z98.1 Arthrodesis status
CPT/HCPCS: 82103-90; 82390-90; 82947-QW; 83010-90; 86255-90; 86645-90; 86663-90; 86664-90; 86665-90; 86694-90; 86708-90; 86787-90; 96365; 97110-GP; 97116-GP; 97162-GP; 97165-GO; 97530-GO; 97530-GP; 97532-GO; 97535-GO; A9540; A9558; C1750; G0472; G0480; J0132; J1644; J2405; J2550